=== PATIENT | female | born 1970 | race Caucasian/White ===

== ENCOUNTER 2020-09-13 10:36 | Outpatient (REF) | payer OTHER, SELFPAY ==
[2020-09-13 12:18] LABS: Cholesterol 179 mg/dL; Glucose Fasting 106 mg/dL (60-99); HDL Cholesterol 50 mg/dL; LDL Cholesterol Calculated 108 mg/dl; Triglycerides 109 mg/dL
[2020-09-13 12:27] LABS: Thyroid Stimulating Hormone 1.53 uIU/mL (0.32-4.0); Vitamin D 25-OH Total 25.3 ng/mL (>30)
[2020-09-13 13:13] LABS: HBS Num1 5.33 mIU/mL (0-7.99); ~Hepatitis B Surface Antibody NONREACTIVE (Nonreactive)
[2020-09-13 13:28] LABS: Estimated Average Glucose 128 mg/dL; Hemoglobin A1c % 6.1 %
[2020-09-16 17:57] LABS: TS Negative Control Passed; TS Panel A 0; TS Panel B 0; TS Positive Control Passed; TSpotTB Negative (SeeBelow)
== END 2020-09-13 10:37 | disposition home or self-care (01) ==
LOC: HO.LAB 10:36
PROVIDERS: PCP Family Medicine; Visit Provider Family Medicine
DX: Z00.00 Encounter for general adult medical examination without abnormal findings (principal); R73.9 Hyperglycemia, unspecified
CPT/HCPCS: 36415; 80061; 82306; 82947; 83036; 84443; 86481; 86706

== ENCOUNTER 2020-11-01 11:53 | Outpatient (REF) | payer OTHER, SELFPAY ==
--- NOTE | ~2020-11-01 | XR_ITS ---
EXAMINATION: XR KNEE, LEFT CLINICAL INFORMATION: Pain COMPARISON: None TECHNIQUE: Four views of the left knee. FINDINGS: Bones and soft tissues are normal. No fracture or joint effusion. Alignment is anatomic. Joint spaces are well maintained. No abnormal soft tissue calcification. XR/XR knee LT 4V IMPRESSION: Normal left knee.
== END 2020-11-01 11:54 | disposition home or self-care (01) ==
LOC: HO.XRAY 11:53
PROVIDERS: PCP Family Medicine; Visit Provider Family Medicine
DX: M25.562 Pain in left knee (principal)
CPT/HCPCS: 73564

== ENCOUNTER 2020-12-03 08:43 | Outpatient (REF) | payer OTHER, SELFPAY ==
--- NOTE | ~2020-12-03 | MM_ITS ---
EXAMINATION: MM SCREENING DIGITAL BREAST TOMOSYNTHESIS, BILATERAL CLINICAL INFORMATION: Screening. Asymptomatic. No known family history breast cancer. The lifetime risk of breast cancer based on the Tyrer-Cuzick Model is 12%. COMPARISON: Outside mammography: 09/15/2019, 05/07/2017 ([facility]). TECHNIQUE: Digital breast tomosynthesis is performed in both the craniocaudal and mediolateral oblique views along with computer-aided detection (CAD). Synthesized 2D images are generated from the tomosynthesis. Additional views are provided: Bilateral CC, bilateral MLO. FINDINGS: The breasts are almost entirely fatty (ACR BI-RADS breast composition Category a). Scattered background stromal and fibroglandular densities are stable. There are no significant masses, abnormal calcifications, or other abnormalities. MM/MM tomosynthesis screening BI IMPRESSION: No mammographic evidence of malignancy. ASSESSMENT: BI-RADS 1: Negative RECOMMENDATION: Routine annual mammography screening. This patient's information was entered into a reminder system with a target due date for their next mammogram.
== END 2020-12-03 08:44 | disposition home or self-care (01) ==
LOC: HO.MAMMO 08:43
PROVIDERS: Visit Provider Family Medicine
DX: Z12.31 Encounter for screening mammogram for malignant neoplasm of breast (principal)
CPT/HCPCS: 77063; 77067

== ENCOUNTER 2021-05-18 11:33 | Emergency (ER) | payer OTHER, SELFPAY ==
--- NOTE | ~2021-05-18 | XR_ITS ---
EXAMINATION: XR FOOT, LEFT CLINICAL INFORMATION: Lateral left foot pain. COMPARISON: None TECHNIQUE: AP, lateral, and oblique views of the left foot. FINDINGS: No acute fracture or dislocation. No significant joint space narrowing or marginal osteophytes. No osseous erosion. Plantar and dorsal calcaneal enthesophytes. XR/XR foot LT min 3V IMPRESSION: No fracture or dislocation. Plantar and dorsal calcaneal spurs.
[2021-05-18 13:51] VITALS: BP 191/108; PULSE 84; RESP 18; TEMP 35.2; O2SAT 98; BMI 50.6
--- NOTE | 2021-05-18 14:56 | ED.EXTPRO ---
HPI - Extremity Problem General Chief complaint: Extremity Problem Stated complaint: lt foot pain Time Seen by Provider: 05/18/21 14:56 Source: patient Mode of arrival: ambulatory Limitations: no limitations History of Present Illness HPI Narrative: 2 nights ago she was barefoot in the bathroom and she wiped her foot. But intermittently she has sharp pain to sole of foot. Complaint: extremity pain Onset (ago): day(s) Pain Consistency: intermittent Location: left Radiation: none Review of Systems Neurologic: Denies Sensory deficit (Neuro) [facility] Past Medical History Medical History Morbid obesity SVT (supraventricular tachycardia) Surgical History History of cholecystectomy History of nephrectomy Physical Exam Vital Signs: Vital Signs: Last Vital Signs Temp 95.4 F L 05/18/21 13:51 Pulse 84 05/18/21 13:51 Resp 18 05/18/21 13:51 BP 191/108 H 05/18/21 13:51 Pulse Ox 98 05/18/21 13:51 Body Mass Index 50.6 Const: General: healthy appearing Nutritional Appearance: average body habitus Orientation/consciousness: oriented to person and patient oriented x3 Limitations: no limitations HENMT: Head: Yes normal to inspection Ears: external ears normal General nose exam: Normal external nose present Mouth: Normal oral and palatal mucosa present and oropharynx normal Throat: Yes posterior oropharynx normal Eyes: General: appearance normal, both eyes and all related structures Neck: Other: supple Neck: Yes normal visual inspection Chest: Chest palpation & inspection: normal inspection of the chest Resp: Auscultation: clear to auscultation bilaterally Cardio: Jugular venous distension: no JVD Rate: regular rate Rhythm: regular rhythm Heart sounds: S1 normal heart sound present and S2 normal heart sound present GI: Inspection: Yes normal to inspection Palpation (GI): Soft to palpation, nontender and No hepatosplenomegaly present Auscultation: normal bowel sounds : General: Yes no CVA tenderness Back/Spine/Pelvis: Back: no CVA tenderness Skin: Other: small area lateral aspect of left foot slightly tender to touch, no real erythema, no fluctuance Neuro: General: oriented to person and patient oriented x3 Cranial nerves: Yes CN's II-XII intact bilaterally Motor exam (neuro): 5/5 motor strength present throughout Sensory Exam: No Sensory deficit (Neuro) Extrem: General: Yes normal to inspection Psych: Appearance: grossly normal Course Reevaluation(s) Reevaluation #1: patient with likely retained foreign body of glass to lateral aspect of left foot. Unable to see glass shard either on physical or xray. Patient instructed to do warm soaks Time: 15:05 Discharge Plan Discharge Clinical Impression: Foreign body in foot, left Patient Disposition: Home, Self-Care Instructions: Soft Tissue Foreign Body (ED) Additional Instructions: warm soaks to foot Referrals: Valentino Cordoba MD [Physician] - 1 week
--- NOTE | 2021-05-18 15:33 | PC.NURSE ---
PT SEEN AND EVALUATED BY DR MEYER. PT ALERT AND ORIENTED X 3. SKIN WARM AND DRY. RESP UNLABORED. DENIES N/V. C/O MILD FOOT PAIN. REPORTS FB TO FOOT. PLAN IS FOR DC HOME AFTER MD MILLAN. PT AGREEABLE TO PLAN. STATES NO QUESTIONS.
== END 2021-05-18 15:36 | disposition home or self-care (01) ==
LOC: HO.ED 15:14
PROVIDERS: Emergency Provider Emergency Medicine; PCP Family Medicine
DX: M79.5 Residual foreign body in soft tissue (principal)
CPT/HCPCS: 73630; 99283

== ENCOUNTER 2022-03-02 11:37 | Outpatient (REF) | payer OTHER, SELFPAY ==
--- NOTE | ~2022-03-02 | US_ITS ---
EXAMINATION: US VENOUS ULTRASOUND WITH DOPPLER LOWER EXTREMITY, LEFT CLINICAL INFORMATION: Pain and tenderness left knee COMPARISON: None TECHNIQUE: Ultrasound of the deep veins is performed from the hip to the calf with compression sonography and color and pulse Doppler assessment. Spectral analysis with color-flow imaging is performed. FINDINGS: There is normal venous compression and respiratory variation and augmented flow. The visualized common femoral vein, superficial femoral vein, profunda femoral vein, popliteal vein, and the trifurcation region shows no evidence of deep venous thrombosis. A small left-sided Bonilla's cyst is present measuring 4.2 x 1.1 x 2.2 cm. There is a small joint effusion. If the patient's symptoms persist, followup ultrasound in 5 days 7 days might be of value to exclude proximal propagation from a non-visualized calf vein. US/US venous duplex LE LT IMPRESSION: No DVT demonstrated in the left lower extremity. There is a Bonilla's cyst present as well as a small joint effusion
== END 2022-03-02 11:38 | disposition home or self-care (01) ==
LOC: HO.US 11:37
PROVIDERS: Visit Provider Physician Assistant
DX: M25.562 Pain in left knee (principal)
CPT/HCPCS: 93971

== ENCOUNTER 2022-03-20 08:03 | Outpatient (REF) | payer OTHER, SELFPAY ==
--- NOTE | ~2022-03-20 | XR_ITS ---
EXAMINATION: KNEE X-RAY CLINICAL INFORMATION: Pain COMPARISON: Previous left knee x-ray October 2020 TECHNIQUE: Standing AP view of both knees and lateral and sunrise view of the left knee FINDINGS: Left: Bone alignment is normal. No fracture or dislocation is seen. The joint spaces are normal. There is a small joint effusion. Standing AP view of the right knee is unremarkable. XR/XR knee standing BI IMPRESSION: Small left knee joint effusion.
--- NOTE | ~2022-03-20 | XR_ITS ---
EXAMINATION: KNEE X-RAY CLINICAL INFORMATION: Pain COMPARISON: Previous left knee x-ray October 2020 TECHNIQUE: Standing AP view of both knees and lateral and sunrise view of the left knee FINDINGS: Left: Bone alignment is normal. No fracture or dislocation is seen. The joint spaces are normal. There is a small joint effusion. Standing AP view of the right knee is unremarkable. XR/XR knee LT 2V IMPRESSION: Small left knee joint effusion.
== END 2022-03-20 08:04 | disposition home or self-care (01) ==
LOC: HO.HOSX 08:03
PROVIDERS: Visit Provider Physician Assistant
DX: M17.12 Unilateral primary osteoarthritis, left knee (principal); M25.561 Pain in right knee
CPT/HCPCS: 20610; 73560; 73565; J1040

== ENCOUNTER 2022-03-29 09:18 | Outpatient (REF) | payer OTHER, SELFPAY ==
[2022-03-29 11:22] LABS: Blood Urea Nitrogen 17 mg/dL (9-16); Estimated Glomerular Filt Rate > 60
== END 2022-03-29 09:19 | disposition home or self-care (01) ==
LOC: HO.LAB 09:18
PROVIDERS: PCP Family Medicine; Visit Provider Urology
DX: Z85.528 Personal history of other malignant neoplasm of kidney (principal)
CPT/HCPCS: 36415; 82565; 84520

== ENCOUNTER 2022-06-30 09:00 | Outpatient (RCR) | payer OTHER, SELFPAY ==
[2022-06-23 07:08] VITALS: BP 147/71; PULSE 85; O2SAT 94
--- NOTE | 2022-06-23 09:59 | MHC.PT.EP ---
[facility] [place] [facility] [place] [facility] [place] Office [address] Matt Zamora [address] [phone] F: [phone] F: [phone] F: [phone] F: [phone] Physical Therapy Plan of Care Date of Evaluation: Date of Surgery: Diagnosis: PATELLOFEMORAL ARTHRITIS OF LEFT KNEE Assessment: 52 YO FEMALE REF TO PT FOR LEFT PATELLOFEMORAL ARTHRITIS- SHE ALSO NOTED SHE HAD A SOLORZANO'S CYST WHICH HAS SINCE DRAINED. 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 OBJECTIVE FINDINGS: LIMITED END ROM Lt KNEE, DECR HIP IR , ALTERED GAIT MECH, STRENGTH AND STABILITY DEFICITS IN LUMBOPELVIC/ HIP REGION, MECHANICAL CONCERN OF GENU VALGUS, AND FLUCTUATING PAIN IN LEFT POSTERIOR AND ANTEROINF KNEE WELL RESTRICTED SOFT TISSUE MOB IN LEFT LATERAL RETINACULUM. FUNCTIONALLY, Pt IS LIMITED W SQUATTING, KNEELING, EXERCISING, FITNESS WALKING, AND PROLONGED STANDING. Pt WOULD BENEFIT FROM PT TO ADDRESS THE ABOVE FINDINGS/ PF SYNDROME, DEV A PROGR HEP, EASE SOFT TISSUE IRRIT, AND DEV SELF-SX MGMT TECHN TO ALLOW Pt TO PERF ADLs, EXER, AND WORK DUTIES W/O EXACERB OF SXS. Frequency and Duration: The patient will be seen 2 x WK x 5 WKS Short Term Goals: * DECR Lt KNEE PAIN TO 2-3/10 W REG ADLs *Pt DEMON TERMINAL LEFT KNEE EXTENSION AND IMPROVE FLEXION *WFL FLEXIB W HIP ROTAT AND HS FLEXIB * INITIATE LUMBOPELVIC STAB/ PROX STRENGTHENING Snf Goals: Pt INDEP W HEP PROGRESSION AND SELF-SX MGMT STRATEGIES IN 5 WKS Pt RESUME REG ADLs / FITNESS ACTIVIITIES EVIDENT W IMPROVED LEFI SCORE BY 8-10 POINTS (AT EVAL 16/80 ) IN 5 WKS Pt INCR LE STRENGTH BY 1/2 - 1 GRADE IN 5 WKS *Pt DEMON EFFICIENT GAIT ON LEVEL SURFACES AND STAIRS, WFL FUNCTIONAL SQUAT Treatment Plan: Modalities to reduce pain, spasms and effusion. Manual therapy to restore motion and function. Therapeutic exercise to improve strength and flexibility. Neuromuscular re-education for posture and balance. Therapeutic activities to return to functional activities of daily living. Electronically signed by: Mia Forrest PT Please sign and return to therapist. Thank you for your referral.
== END 2022-07-18 11:31 | disposition home or self-care (01) ==
LOC: HO.PT 09:00
PROVIDERS: PCP Family Medicine; Visit Provider Physician Assistant
DX: M17.12 Unilateral primary osteoarthritis, left knee (principal)
CPT/HCPCS: 97110; 97140; 97162

== ENCOUNTER 2022-07-03 08:05 | Emergency (ER) | payer OTHER, SELFPAY ==
--- NOTE | ~2022-07-03 | US_ITS ---
EXAMINATION: US EXTREMITY NONVASCULAR CLINICAL INFORMATION: Pain along the Achilles tendon. Rule out rupture. COMPARISON: None TECHNIQUE: Limited ultrasound imaging through the Achilles tendon is performed. FINDINGS: The Achilles tenon appears intact with thickness measuring 0.6 cm on the left and 0.5 cm on the right. There is some edema seen superficially to the left Achilles tendon, likely a soft tissue injury. US/US extremity nonvascular cross IMPRESSION: 1. Intact Achilles tendon. 2. There is edema seen superficially to the left Achilles tendon likely soft tissue injury.
[2022-07-03 08:08] VITALS: BP 176/94; PULSE 104; RESP 20; TEMP 37; O2SAT 100; BMI 51.5
--- OUTSIDE RECORDS SUMMARY | 2022-07-03 08:42 | XMS_ITS | Continuity of Care Document ---
:1970 Author Organization [facility] Address [address] [place] [address]- Care Team Providers Name Role Phone Billy DENG, Nena Cho Primary Care Physician [phone] Encounter [facility] Date(s): 10/11/21 - 10/18/21 [facility] [address], [place] [address] [place] Attending Physician: Pernell DENG, Dany Referring Physician: Billy DENG, Nena Cho Allergies, Adverse Reactions, Alerts Substance Reaction Severity Status metoprolol Active Latex Active Fruit Kiwi fruit Active Immunizations Given and Recorded Vaccine Date Status Refusal Reason SARS-CoV-2 (COVID-19) mRNA BNT-162b2 vac 08/30/20 Recorde d SARS-CoV-2 (COVID-19) mRNA BNT-162b2 vac 07/30/20 Recorde d tetanus/diphtheria/pertussis, acel(Tdap) 08/22/19 Given tetanus/diphtheria/pertussis, acel(Tdap) 12/23/08 Recorde d Hepatitis B Vaccine (old term) 10/23/08 Recorded Hepatitis B Vaccine (old term) 09/24/08 Recorded Measles/Mumps/Rubella Virus Vaccine 12/02/90 Recorded Measles/Mumps/Rubella Virus Vaccine 05/01/78 Recorded Medications cyclobenzaprine 10 mg oral tablet 10 mg, By Mouth, Every 8 hours, PRN, Muscle Spasms, # 21 tablet, Refills 0, Tot. Refills 0, Maintenance, Pain , Moderate, 05/11/21 16:05:00 EDT, Route to Pharmacy Electronically, [facility]/pharmacy #[id number], Partial fill upon patient request if the prescriptio... Start Date: 05/11/21 Status: OrderedFlovent HFA 110 mcg/inh inhalation aerosol 2 puffs, Inhalation, 2 times a day, # 36 Unknown, 2 Refills, Maintenance, 01/19/21 12:54:00 EDT, [id number], 157, cm, 01/14/21 16:08:00 EDT, Height Start Date: 01/19/21 Status: Orderednortriptyline 10 mg oral capsule 2, capsule, By Mouth, Daily, # 180 capsule, Refills 1, Route to Pharmacy Electronically, [id number], 157, cm, 05/11/21 15:35:00 EDT, Height Start Date: 09/16/21 Status: OrderedProAir HFA 90 mcg/inh inhalation aerosol with adapter 2, puffs, Inhalation, Every 4 hours, PRN, # 8.5 Gm, Refills 5, Tot. Refills 5, Maintenance, 08/22/2014:20:00 EST, Aerosol, Route to Pharmacy Electronically, [id number], [facility]/pharmacy #[id number], 157, cm, 08/22/19 14:55:00 EST, Height Start Date: 08/22/19 Status: Ordered Problem List Condition Effective Dates Status Health Status Informant Asthma(Confirmed) Active Clear cell renal cell Active carcinoma(Confirmed) Depression(Confirmed) Active Herpes simplex(Confirmed) Active Hx of supraventricular Active tachycardia(Confirmed) Hyperglycemia(Confirmed) Active Migraine(Confirmed) Active Obesity(Confirmed) Active Vitamin D deficiency(Confirmed) Active Vital Signs Most recent to oldest [Reference Range]: 1 Height 157 cm (10/11/21 11:55 AM) Oxygen Saturation [94-100 %] 97 % (10/11/21 11:55 AM) Pulse Rate [55-90 bpm] 86 bpm (10/11/21 11:55 AM) Blood Pressure [90-138/55-84 mm Hg] 151/78 mm Hg *H* (10/11/21 11:55 AM) Respiratory Rate [16-30 br/min] 24 br/min (10/11/21 11:55 AM) Temperature [96.8-100.4 DegF] 98.6 DegF (10/11/21 11:55 AM) Mode of Delivery (Oxygen) Room air (10/11/21 11:55 AM) Blood pressure sites Arm, left (10/11/21 11:55 AM) Temperature Route Temporal (10/11/21 11:55 AM) Social History Social History Type Response Smoking Status Never (less than 100 in life time) entered on: 08/22/19 Sex
--- OUTSIDE RECORDS SUMMARY | 2022-07-03 08:42 | XMS_ITS | Continuity of Care Document ---
:1970 Author Organization [facility] pt Address [address] [place] [address]- Care Team Providers Name Role Phone Not on Staff, PCP Primary Care Physician Unavailable [place] [facility] [place]s): 03/01/22 - 03/31/22 [facility] [address] [place] [address]- Attending Physician: Admtr, Parrish Admitting Physician: Admtr, Ar8 Referring Physician: Admtr, Ar8 Allergies, Adverse Reactions, Alerts Substance Reaction Severity [...] 05/11/21 16:05:00 EDT, Route to Pharmacy Electronically, [facility]/pharmacy #[id number], Partial fill upon patient request if the prescriptio... Start Date: 05/11/21 Status: OrderedFlovent HFA 110 mcg/inh inhalation aerosol 2 puffs, Inhalation, 2 times a day, # 36 Unknown, 2 Refills, Maintenance, 01/19/21 12:54:00 EDT, [id number], 157, cm, 01/14/21 16:08:00 EDT, Height Start Date: 01/19/21 Status: Orderednortriptyline 10 mg oral capsule 2, capsule, By Mouth, Daily, # 180 capsule, Refills 1, Route to Pharmacy Electronically, [facility], 157, cm, 05/11/21 15:35:00 EDT, Height Start Date: 09/16/21 Status: OrderedProAir HFA 90 mcg/inh inhalation aerosol with adapter 2, puffs, Inhalation, Every 4 hours, PRN, # 8.5 Gm, Refills 5, Tot. Refills 5, Maintenance, 08/22/2014:20:00 EST, Aerosol, Route to Pharmacy Electronically, [id number], [facility]/pharmacy #[id number], 157, cm, 08/22/19 14:55:00 EST, Height Start Date: 08/22/19 Status: Ordered Problem List Condition Effective Dates Status Health Status Informant Asthma(Confirmed) Active Clear cell renal cell Active carcinoma(Confirmed) Depression(Confirmed) Active Herpes simplex(Confirmed) Active Hx of supraventricular Active tachycardia(Confirmed) Hyperglycemia(Confirmed) Active Migraine(Confirmed) Active Obesity(Confirmed) Active Vitamin D deficiency(Confirmed) Active Social History Social History Type Response Smoking Status Never (less than 100 in life time) entered on: 08/22/19 Sex
--- OUTSIDE RECORDS SUMMARY | 2022-07-03 08:42 | XMS_ITS | Continuity of Care Document ---
:1970 Author Organization [facility] Address [address] [place] [address]- Care Team Providers Name Role Phone Billy DENG, Nena Cho Primary Care Physician Encounter [facility] Date(s): 05/12/21 - 06/11/21 [facility] [address] [place] [address]- Allergies, Adverse Reactions, Alerts Substance Reaction Severity [...] 05/11/21 16:05:00 EDT, Route to Pharmacy Electronically, [facility]/pharmacy #[id number], Partial fill upon patient request if the prescriptio... Start Date: 05/11/21 Status: OrderedFlovent HFA 110 mcg/inh inhalation aerosol 2 puffs, Inhalation, 2 times a day, # 36 Unknown, 2 Refills, Maintenance, 01/19/21 12:54:00 EDT, [id number], [facility], cm, 01/14/21 16:08:00 EDT, Height Start Date: 01/19/21 Status: Orderednortriptyline 10 mg oral capsule 2, capsule, By Mouth, Daily, # 180 capsule, Refills 3, Tot. Refills 3, Maintenance, 09/03/20 13:27:00 EST, Route to Pharmacy Electronically, [facility]/pharmacy #[id number], 157, cm, 08/22/19 14:55:00 EST, Height Start Date: 09/03/20 Status: OrderedProAir HFA 90 mcg/inh inhalation aerosol with adapter 2, puffs, Inhalation, Every 4 hours, PRN, # 8.5 Gm, Refills 5, Tot. Refills 5, Maintenance, 08/22/2014:20:00 EST, Aerosol, Route to Pharmacy Electronically, [id number], [facility]/pharmacy #[id number], 157, cm, 08/22/19 14:55:00 EST, Height [...]
--- OUTSIDE RECORDS SUMMARY | 2022-07-03 08:43 | XMS_ITS | Continuity of Care Document ---
:1970 Author Organization [facility] Address [address] [place] [address]- Care Team Providers Name Role Phone Billy DENG, Nena Cho Primary Care Physician [phone] Encounter [facility] Date(s): 05/11/21 - 06/10/21 [facility] [address] [place] [address]- Attending Physician: Parrish Buckley Admitting Physician: AdmtrParrish Referring Physician: Admtr, Ar8 Allergies, Adverse Reactions, [...] 05/11/21 16:05:00 EDT, Route to Pharmacy Electronically, [facility]/pharmacy #[id number], Partial fill upon patient request if the prescriptio... Start Date: 05/11/21 Status: OrderedFlovent HFA 110 mcg/inh inhalation aerosol 2 puffs, Inhalation, 2 times a day, # 36 Unknown, 2 Refills, Maintenance, 01/19/21 12:54:00 EDT[facility], cm, 01/14/21 16:08:00 EDT, Height Start Date: 01/19/21 Status: Orderednortriptyline 10 mg oral capsule 2, capsule, By Mouth, Daily, # 180 capsule, Refills 3, Tot. Refills 3, Maintenance, 09/03/20 13:27:00 EST, Route to Pharmacy Electronically, [facility]/pharmacy #[id number], 157, cm, 08/22/19 14:55:00 EST, Height Start Date: 09/03/20 Status: OrderedProAir HFA 90 mcg/inh inhalation aerosol with adapter 2, puffs, Inhalation, Every 4 hours, PRN, # 8.5 Gm, Refills 5, Tot. Refills 5, Maintenance, 08/22/2014:20:00 EST, Aerosol, Route to Pharmacy Electronically, [id number], [facility]/pharmacy #[id number], 157, cm, 08/22/19 14:55:00 EST, [...]
--- OUTSIDE RECORDS SUMMARY | 2022-07-03 08:43 | XMS_ITS | Continuity of Care Document ---
:1970 Author Organization [facility] Address [address] [place] [address]- Care Team Providers Name Role Phone Billy DENG, Nena Cho Primary Care Physician Encounter [facility] Date(s): 10/11/21 - 11/10/21 [facility] [address], [place] [address] Attending Physician: AdmtrParrish Admitting Physician: Admtr, Ar8 Referring Physician: Admtr, [...] 05/11/21 16:05:00 EDT, Route to Pharmacy Electronically, [facility]/pharmacy #[id number], Partial fill upon patient request if the prescriptio... Start Date: 05/11/21 Status: OrderedFlovent HFA 110 mcg/inh inhalation aerosol 2 puffs, Inhalation, 2 times a day, # 36 Unknown, 2 Refills, Maintenance, 01/19/21 12:54:00 EDT, [facility], [facility], cm, 01/14/21 16:08:00 EDT, Height Start Date: 01/19/21 Status: Orderednortriptyline 10 mg oral capsule 2, capsule, By Mouth, Daily, # 180 capsule, Refills 1, Route to Pharmacy Electronically, [facility], 157, cm, 05/11/21 15:35:00 EDT, Height Start Date: 09/16/21 Status: OrderedProAir HFA 90 mcg/inh inhalation aerosol with adapter 2, puffs, Inhalation, Every 4 hours, PRN, # 8.5 Gm, Refills 5, Tot. Refills 5, Maintenance, 08/22/2014:20:00 EST, Aerosol, Route to Pharmacy Electronically, [id number], [facility]/pharmacy #[id number], 157, cm, 08/22/19 14:55:00 EST, [...]
--- OUTSIDE RECORDS SUMMARY | 2022-07-03 08:43 | XMS_ITS | Continuity of Care Document ---
:1970 Author Organization [facility] Address [address] [place] [address]- Care Team Providers Name Role Phone Billy DENG, Nena Cho Primary Care Physician Encounter [facility] Date(s): 05/11/21 - 05/18/21 [facility] [address] [place] [address]- Encounter Diagnosis Lower back pain (Discharge Diagnosis) - 05/11/21 Attending Physician: eDepa Cervantes NP Referring Physician: Billy DENG, Nena Cho Allergies, [...] 05/11/21 16:05:00 EDT, Route to Pharmacy Electronically, [facility]/pharmacy #[id number], Partial fill upon patient request if the prescriptio... Start Date: 05/11/21 Status: OrderedFlovent HFA 110 mcg/inh inhalation aerosol 2 puffs, Inhalation, 2 times a day, # 36 Unknown, 2 Refills, Maintenance, 01/19/21 12:54:00 EDT, [facility], 157, cm, 01/14/21 16:08:00 EDT, Height Start Date: 01/19/21 Status: Orderednortriptyline 10 mg oral capsule 2, capsule, By Mouth, Daily, # 180 capsule, Refills 3, Tot. Refills 3, Maintenance, 09/03/20 13:27:00 EST, [facility], [id number], 157, cm, 08/22/19 14:55:00 EST, Height Start Date: 09/03/20 Status: OrderedProAir HFA 90 mcg/inh inhalation aerosol with adapter 2, puffs, Inhalation, Every 4 hours, PRN, # 8.5 Gm, Refills 5, Tot. Refills 5, Maintenance, 08/22/2014:20:00 EST, Aerosol, Route to Pharmacy Electronically, [id number], [id number], 157, cm, 08/22/19 14:55:00 EST, Height Start Date: 08/22/19 Status: Ordered Problem List Condition Effective Dates Status Health Status Informant Asthma(Confirmed) Active Clear cell renal cell Active carcinoma(Confirmed) Depression(Confirmed) Active Herpes simplex(Confirmed) Active Hx of supraventricular Active tachycardia(Confirmed) Hyperglycemia(Confirmed) Active Migraine(Confirmed) Active Obesity(Confirmed) Active Vitamin D deficiency(Confirmed) Active Diagnosis Diagnosis Type Effective Dates Health Status Clinical In formant Service Lower back pain Discharge 05/11/21 Diagnosis Vital Signs Most recent to oldest [Reference Range]: 1 Height 157 cm (05/11/21 3:35 PM) Weight 136.3 kg (05/11/21 3:35 PM) Body Mass Index [18.5-24.99] 55.3 *>HHI* (05/11/21 3:35 PM) Weight Obtained Via Patient/family stated (05/11/21 3:35 PM) Social History Social History Type Response Smoking Status Never (less than 100 in life time) entered on: 08/22/19 Sex
--- OUTSIDE RECORDS SUMMARY | 2022-07-03 08:43 | XMS_ITS | Continuity of Care Document ---
:1970 Author Organization [facility] Address [address] [place] [address]- Care Team Providers Name Role Phone Billy DENG, Nena Cho Primary Care Physician [phone] Encounter [facility] Date(s): 05/18/21 - 06/17/21 [facility] [address] [place] [address]- Allergies, Adverse Reactions, Alerts Substance Reaction Severity [...] 05/11/21 16:05:00 EDT, Route to Pharmacy Electronically, [facility]/pharmacy #[id number], Partial fill upon patient request if the prescriptio... Start Date: 05/11/21 Status: OrderedFlovent HFA 110 mcg/inh inhalation aerosol 2 puffs, Inhalation, 2 times a day, # 36 Unknown, 2 Refills, Maintenance, 01/19/21 12:54:00 EDT[facility], cm, 01/14/21 16:08:00 EDT, Height Start Date: 01/19/21 Status: Orderednortriptyline 10 mg oral capsule 2, capsule, By Mouth, Daily, # 180 capsule, Refills 3, Tot. Refills 3, Maintenance, 09/03/20 13:27:00 EST, Route to Pharmacy Electronically, [facility]/pharmacy #[id number], 157, cm, 08/22/19 14:55:00 EST, Height Start Date: 09/03/20 Status: OrderedProAir HFA 90 mcg/inh inhalation aerosol with adapter 2, puffs, Inhalation, Every 4 hours, PRN, # 8.5 Gm, Refills 5, Tot. Refills 5, Maintenance, 08/22/2014:20:00 EST, Aerosol, Route to Pharmacy Electronically, [id number], [facility]/pharmacy #[id number], 157, cm, 08/22/19 14:55:00 EST, [...]
--- OUTSIDE RECORDS SUMMARY | 2022-07-03 08:43 | XMS_ITS | Continuity of Care Document ---
:1970 Author Organization [facility] Address [address] [place] [address]- Care Team Providers Name Role Phone Billy DENG, Nena Cho Primary Care Physician Encounter [facility] R [id number] Date(s): 03/01/22 - 03/08/22 [facility] [address] [place] [address]- Attending Physician: Renny Tovar DO Referring Physician: Nena Cervantes MD Allergies, Adverse Reactions, Alerts Substance Reaction Severity [...] 05/11/21 16:05:00 EDT, Route to Pharmacy Electronically, [facility]/pharmacy #[id number], Partial fill upon patient request if the prescriptio... Start Date: 05/11/21 Status: OrderedFlovent HFA 110 mcg/inh inhalation aerosol 2 puffs, Inhalation, 2 times a day, # 36 Unknown, 2 Refills, Maintenance, 01/19/21 12:54:00 EDT, [id number], 157, cm, 01/14/21 16:08:00 EDT, Height Start Date: 01/19/21 Status: Orderednortriptyline 10 mg oral capsule 2, capsule, By Mouth, Daily, # 180 capsule, Refills 1, Route to Pharmacy Electronically, [id number], 157, cm, 05/11/21 15:35:00 EDT, Height Start Date: 09/16/21 Status: OrderedProAir HFA 90 mcg/inh inhalation aerosol with adapter 2, puffs, Inhalation, Every 4 hours, PRN, # 8.5 Gm, Refills 5, Tot. Refills 5, Maintenance, 08/22/2014:20:00 EST, Aerosol, Route to Pharmacy Electronically, [id number], [facility]/pharmacy #[id number], 157, cm, 08/22/19 14:55:00 EST, Height Start Date: 08/22/19 Status: Ordered Problem List Condition Effective Dates Status Health Status Informant Asthma(Confirmed) Active Clear cell renal cell Active carcinoma(Confirmed) Depression(Confirmed) Active Herpes simplex(Confirmed) Active Hx of supraventricular Active tachycardia(Confirmed) Hyperglycemia(Confirmed) Active Migraine(Confirmed) Active Obesity(Confirmed) Active Vitamin D deficiency(Confirmed) Active Vital Signs Most recent to oldest [Reference Range]: 1 Height 157 cm (03/01/22 4:27 PM) Oxygen Saturation [94-100 %] 97 % (03/01/22 4:27 PM) Pulse Rate [55-90 bpm] 92 bpm *H* (03/01/22 4:27 PM) Blood Pressure [90-138/55-84 mm Hg] 158/86 mm Hg *H* (03/01/22 4:27 PM) Respiratory Rate [16-30 br/min] 18 br/min (03/01/22 4:27 PM) Temperature [96.8-100.4 DegF] 96.8 DegF (03/01/22 4:27 PM) Mode of Delivery (Oxygen) Room air (03/01/22 4:27 PM) Blood pressure sites Arm, left (03/01/22 4:27 PM) Social History Social History Type Response Smoking Status Never (less than 100 in life time) entered on: 08/22/19 Sex
--- OUTSIDE RECORDS SUMMARY | 2022-07-03 08:43 | XMS_ITS | Continuity of Care Document ---
:1970 Author Organization [facility] Address [address] [place] [id number]- Care Team Providers Name Role Phone Not on Staff, PCP Primary Care Physician Unavailable Encounter [facility] Date(s): 03/02/22 - 04/01/[address] [address] Attending Physician: Billy JENKINS, Barbara Leger Admitting Physician: Billy JENKINS, Barbara Leger Referring Physician: Billy JENKINS, Barbara Leger Allergies, Adverse Reactions, Alerts Substance Reaction Severity [...] 05/11/21 16:05:00 EDT, Route to Pharmacy Electronically, [facility]/pharmacy #[id number], Partial fill upon patient request if the prescriptio... Start Date: 05/11/21 Status: OrderedFlovent HFA 110 mcg/inh inhalation aerosol 2 puffs, Inhalation, 2 times a day, # 36 Unknown, 2 Refills, Maintenance, 01/19/21 12:54:00 EDT, [id number], 157, cm, 01/14/21 16:08:00 EDT, Height Start Date: 01/19/21 Status: Orderednortriptyline 10 mg oral capsule 2, capsule, By Mouth, Daily, # 180 capsule, Refills 1, Route to Pharmacy Electronically, [id number], 157, cm, 05/11/21 15:35:00 EDT, Height Start Date: 09/16/21 Status: OrderedProAir HFA 90 mcg/inh inhalation aerosol with adapter 2, puffs, Inhalation, Every 4 hours, PRN, # 8.5 Gm, Refills 5, Tot. Refills 5, Maintenance, 08/22/2014:20:00 EST, Aerosol, Route to Pharmacy Electronically, [id number], [id number], 157, cm, 08/22/19 14:55:00 EST, [...]
[2022-07-03] MEDS: Ketorolac Tromethamine 60 MG/2 ML VIAL IM (09:04)
--- NOTE | 2022-07-03 09:09 | ED.EXTPRO ---
HPI - Extremity Problem General Chief complaint: Extremity Problem Stated complaint: leg pain Time Seen by Provider: 07/03/22 08:34 Source: patient Mode of arrival: ambulatory Limitations: no limitations History of Present Illness HPI Narrative: 52 yo female here with left calf pain. Patient reports that she has been struggling with left knee pain for several months but over the last 1 week she has had pain in her left posterior ankle which is worsened with walking. Today when walking she felt immediate tearing sensation in her left calf with sudden pain. No weakness, numbness, tingling Related Data Home Medications Medication Instructions Recorded Confirmed nortriptyline 10 mg capsule 20 mg PO DAILY 03/20/22 Previous Rx's Medication Instructions Recorded oxycodone 5 mg tablet 5 mg PO Q8H PRN pain #10 tabs 07/03/22 Allergies Allergy/AdvReac Type Severity Reaction Status Date / Time No Known Allergies Allergy Verified 03/20/22 15:45 Review of Systems Review of Systems: Yes all other systems are reviewed and are negative Constitutional: Constitutional: Reports no additional constitutional complaints, Denies body ache(s), Denies chills, Denies fever(s), Denies headache(s) and Denies weakness Eyes: Eyes: Reports no additional eye complaints and Denies change in vision ENT: Reports system reviewed and no additional complaints, except as documented, Denies dizziness, Denies headache(s), Denies nasal congestion, Denies nasal discharge and Denies neck pain Cardiovascular: Cardiovascular: Reports no additional cardiovascular complaints, Denies chest pain, Reports leg edema and Denies dyspnea Respiratory: Respiratory: Reports no additional respiratory complaints, Denies cough and Denies dyspnea Gastrointestinal: Gastrointestinal: Reports no additional gastrointestinal complaints, Denies abdominal pain, Denies diarrhea, Denies nausea and Denies vomiting Genitourinary: Genitourinary: Reports no additional female genitourinary complaints and Denies urinary incontinence Musculoskeletal: Musculoskeletal: Reports no additional musculoskeletal complaints, Denies back pain, Denies arthralgias, Denies joint swelling, Denies neck pain, Denies numbness, Reports radiating pain into limb and Denies tingling Integumentary/Breasts: Skin/Breast: Reports system reviewed and no additional complaints, except as docu and Denies rash Neurologic: Reports system reviewed and no additional complaints, except as documented, Denies Abnormal speech present, Denies dizziness, Denies headache(s), Denies numbness, Denies tingling and Denies weakness [facility] Past Medical History Attestation statement: The following information was validated with the patient. Source: old records reviewed and nursing notes reviewed Medical History Morbid obesity SVT (supraventricular tachycardia) Surgical History History of cholecystectomy History of nephrectomy Social History Social History Smoked in Last 30 Days: No Advance Directives: No Advance Directives Information Provided: No Patient : No Physical Exam Vital Signs: Vital Signs: Last Vital Signs Temp 98.6 F 07/03/22 08:08 Pulse 104 H 07/03/22 08:08 Resp 20 07/03/22 08:08 BP 176/94 H 07/03/22 08:08 Pulse Ox 100 07/03/22 08:08 O2 Del Method 07/03/22 08:08 BMI result Body Mass Index 51.5 Const: General: cooperative, healthy appearing, comfortable and no acute distress Orientation/consciousness: patient oriented x3 Limitations: no limitations HEENT: Head: Yes normal to inspection Ears: hearing grossly normal bilaterally General nose exam: Normal external nose present Face and sinus: Yes normal facial exam Mouth: Normal oral and palatal mucosa present Throat: Yes posterior oropharynx normal Eyes: General: appearance normal, both eyes and all related structures Pupils: Equal, round and reactive pupils present Neck: Neck: Yes normal visual inspection Chest: Chest palpation & inspection: normal inspection of the chest Resp: Effort & Inspection: normal respiratory effort Auscultation: clear to auscultation bilaterally Cardio: Rate: regular rate Rhythm: regular rhythm Peripheral pulses: Peripheral pulses 2+ throughout GI: Inspection: Yes normal to inspection Palpation (GI): Soft to palpation and nontender Auscultation: normal bowel sounds Back/Spine/Pelvis: Thoracic/Lumbar Spine: thoracic and lumbar spine normal to inspection Skin: General skin exam: no rashes or lesions noted Neuro: General: patient oriented x3, no focal motor deficits and normal sensation to monofilament Cranial nerves: Yes Equal, round and reactive pupils present Cognition (Neuro): normal cognition Speech: No Abnormal speech present Gait exam (Neuro): Normal gait present Motor exam (neuro): 5/5 motor strength present throughout Extrem: Other: There is tenderness of the left posterior Achilles and over the left posterior calf with slight swelling. No warmth or redness. +young test but alot of pain with squeeze General: Yes normal to inspection Course Course Course Narrative: Ultrasound shows no evidence of Achilles tendon rupture. There is some soft tissue swelling noted at the area of the tendon. Likely strain or inflammation. Patient placed in a walking boot given crutches for home. Recommend follow-up with orthopedics for any persistent symptoms. Reviewed rice. Reviewed worrisome signs and symptoms of when to return to the emergency room. Comfortable plan for discharge home. Medications Administered Discontinued Medications Generic Name Dose Route Start Last Admin Trade Name Freq PRN Reason Stop Dose Admin Ketorolac Tromethamine 60 mg 07/03/22 09:00 07/03/22 09:04 Ketorolac Tromethamine 60 Mg/2 Ml Vial IM 07/03/22 09:01 60 mg ONCE ONE Administration Ondansetron HCl 4 mg 07/03/22 09:07 07/03/22 09:10 Ondansetron Odt 4 Mg Tab.Rapdis TRANSLINGU 07/03/22 09:08 4 mg ONCE ONE Administration MDM - Extremity (Nontraumatic) MDM Narrative Medical decision making narrative: 52-year-old female here with posterior left ankle and calf pain after hearing a ripping sensation today while walking. Will check ultrasound. Provide analgesia. Consider gastro tear, achilles tendon rupture or tear Medical Records Attestation: I reviewed the patient's medical records. Lab Data Attestation: I reviewed the patient's lab results. Imaging Data soft tisee US: Attestation: I personally reviewed and interpreted this imaging study as follows: Radiologist's impression: Launch?Image [address] [address] Ultrasound Report Signed Patient: Leila Lundberg MR#: [id number] : 1970 Acct:[id number] Age/Sex: 52 / F ADM Date: 07/03/22 Loc: HO.ED Attending Dr: Ordering Physician: Vibha Wilson NP Date of Service: 07/03/22 Procedure(s): US extremity nonvascular cross Accession Number(s): [id number] cc: Vibha Wilson DRIER TENDER~ EXAMINATION: US EXTREMITY NONVASCULAR CLINICAL INFORMATION: Pain along the Achilles tendon. Rule out rupture.? COMPARISON: None? TECHNIQUE: Limited ultrasound imaging through the Achilles tendon is performed.? FINDINGS: The Achilles tenon appears intact with thickness measuring 0.6 cm on the left and 0.5 cm on the right. There is some edema seen superficially to the left Achilles tendon, likely a soft tissue injury. ? US/US extremity nonvascular cross IMPRESSION: 1.? Intact Achilles tendon. 2.? There is edema seen superficially to the left Achilles tendon likely soft tissue injury. ? Procedures Procedure Narrative Procedure Narrative: Crutches, walking boot Discharge Plan Discharge Clinical Impression: Strain of Achilles tendon Patient Disposition: Home, Self-Care Instructions: Muscle Strain (ED), Achilles Tendinitis (ED) Additional Instructions: Ice to the area, use the boot for walking, elevation Continue ibuprofen for pain Add oxycodone as needed Prescriptions: New oxycodone 5 mg tablet 5 mg PO Q8H PRN (Reason: pain) Qty: 10 0RF Rx Instructions: Partial Fill upon patient request. No Action nortriptyline 10 mg capsule 20 mg PO DAILY Referrals: [facility] [Provider Group] - 1 week (For persistent symptoms) Stand Alone Forms: Work/School Release Interventions: ED Discharge Assessment Last Done: 07/03/22 14:46 Discharge Date/Time: 07/03/22 14:46
[2022-07-03] MEDS: Ondansetron ODT 4 MG TAB.RAPDIS TRANSLINGU (09:10)
--- NOTE | 2022-07-03 10:13 | PC.NURSE ---
Ultrasound at bedside . patient aware of plan care .
--- NOTE | 2022-07-03 14:42 | PC.NURSE ---
patient a/ox4 . crutch education given and walking boot applied to left foot , patient tolerated well . went over discharge instructions as ordered by provider . contact information given for follow up with orthopedics . patient to return if symptoms worsen . no questions at this time .
== END 2022-07-03 14:46 | disposition home or self-care (01) ==
PROVIDERS: Emergency Provider Emergency Medicine; PCP Family Medicine
DX: S86.012A Strain of left Achilles tendon, initial encounter (principal); X58.XXXA Exposure to other specified factors, initial encounter; Y93.01 Activity, walking, marching and hiking; Y92.9 Unspecified place or not applicable; Y99.9 Unspecified external cause status
CPT/HCPCS: 76882; 96372; 99284; J1885

== ENCOUNTER → 2022-07-05 10:18 | Outpatient (BNVA) | payer OTHER, SELFPAY | PROVIDERS: PCP Family Medicine; Visit Provider Physician Assistant Medical | DX: Z13.89 Encounter for screening for other disorder (principal) | CPT/HCPCS: 99203 ==

== ENCOUNTER 2022-09-19 14:00 | Outpatient (REF) | payer OTHER, SELFPAY ==
--- NOTE | ~2022-09-19 | US_ITS ---
EXAMINATION: US PELVIS CLINICAL INFORMATION: Postmenopausal bleeding. COMPARISON: None TECHNIQUE: Ultrasound of the pelvis is performed using both transabdominal and transvaginal transducers along with Doppler. Transvaginal imaging is performed due to inadequate visualization transabdominally. FINDINGS: Uterus: The uterus is anteverted and measures 9.2 x 3.2 x 5.1 cm. Do cysts are seen within the cervix. The double wall endometrial thickness is 0.9 mm, which is increased for a postmenopausal patient. The uterus is smooth in contour and has normal myometrial echogenicity. No visible fibroid. Adnexa: Both ovaries are visualized. There is normal color flow to the adnexa. There is no ovarian torsion. There is no pelvic ascites or fluid collection. Right ovary measures 2.4 x 1.7 x 2.4 cm, volume 5.1 mL. Left ovary measures 3.9 x 3.6 x 4.1 cm, volume 30.1 mL. Imaging of the left ovary is limited due to body habitus. US/US pelvic and transvaginal IMPRESSION: 1. There is postmenopausal thickening of the endometrial stripe to 9 mm. Gynecology evaluation an management is recommended, with consideration for tissue sampling. 2. Nabothian cysts are seen within the cervix. 3. There is abnormal enlargement of the presumed left ovary. This shows Doppler flow, and no obvious torsion is seen, with the provision that ovarian torsion may be intermittent. The further possibility of a pedunculated fibroid is raised, given limited visualization secondary to body habitus. Gynecology evaluation and management is recommended. This finding could be further evaluated with pelvic MRI, if clinically indicated.
== END 2022-09-19 14:01 | disposition home or self-care (01) ==
LOC: HO.US 14:00
PROVIDERS: PCP Family Medicine; Visit Provider Family Medicine
DX: N95.0 Postmenopausal bleeding (principal)
CPT/HCPCS: 76830; 76856

== ENCOUNTER 2022-10-03 13:24 | Outpatient (REF) | payer OTHER, SELFPAY | END 2022-10-03 13:25 | disposition home or self-care (01) | LOC: HO.LNP 13:24 | PROVIDERS: PCP Family Medicine; Visit Provider Obstetrics & Gynecology | DX: N95.0 Postmenopausal bleeding (principal) | CPT/HCPCS: 58100; 88305 ==

== ENCOUNTER → 2022-10-26 11:39 | Outpatient (BNVA) | payer OTHER, SELFPAY | PROVIDERS: PCP Family Medicine; Visit Provider Obstetrics & Gynecology | DX: Z13.89 Encounter for screening for other disorder (principal) ==

== ENCOUNTER 2023-03-15 08:12 | Emergency (ER) | payer OTHER, SELFPAY ==
--- NOTE | ~2023-03-15 | XR_ITS ---
EXAMINATION: XR CHEST AP portable, 9:05 AM CLINICAL INFORMATION: Upper respiratory symptoms COMPARISON: None available. TECHNIQUE: Frontal view of the chest was obtained. FINDINGS: No significant abnormality is noted involving the heart, lungs, mediastinum, bony thorax or soft tissues. XR/XR chest 1V IMPRESSION: No acute cardiopulmonary disease on this AP portable chest x-ray.
[2023-03-15 08:28] VITALS: BP 156/96; PULSE 109; RESP 16; TEMP 36.7; O2SAT 96; BMI 53.1
--- NOTE | 2023-03-15 08:29 | ED.GENADULT ---
HPI - General Adult General Chief complaint: Dyspnea Stated complaint: Asthma? Time Seen by Provider: 03/15/23 08:28 Source: patient Mode of arrival: ambulatory Limitations: no limitations History of Present Illness HPI narrative: Patient is a 53 year old assigned female at with a history of asthma presenting to the emergency department today with wheezing and a cough. Patient states that over the last 4 days she has had a cough and increased wheezing. Patient denies any dizziness, lightheadedness, abdominal pain, nausea, vomiting, fever, chills, blurry vision, double vision, loss of vision, chest pain, difficulty breathing, shortness of breath, back pain, night sweats, pain with urination, increased urinary frequency, increased urinary urgency, blood in her urine or stool, syncope or a near syncopal episode, recent trauma or falls, bowel incontinence, bladder incontinence, bowel retention, bladder retention, or any other complaints at this time. Onset (ago): day(s) (4) Severity: mild Severity scale (1-10): 3 Relieving factors: none Exacerbating factors: none Associated symptoms: cough Treatments prior to arrival: none Related Data Home Medications Medication Instructions Recorded Confirmed ibuprofen 800 mg tablet 800 mg PO Q8H 10/03/22 Previous Rx's Medication Instructions Recorded albuterol sulfate 90 mcg/actuation 1 inh inhalation QID PRN shortness 03/15/23 aerosol inhaler of breath or wheezing #8.5 grams doxycycline hyclate 100 mg tablet 100 mg PO BID 7 days #14 tabs 03/15/23 prednisone 20 mg tablet 20 mg PO DAILY 7 days #7 tabs 03/15/23 Allergies Allergy/AdvReac Type Severity Reaction Status Date / Time amlodipine [From [facility]] Allergy Intermediate Swelling Verified 10/26/22 11:43 Latex, Natural Rubber Allergy Intermediate Difficulty Verified 10/26/22 11:43 Breathing,itching metoprolol AdvReac Unknown Verified 03/15/23 08:28 Review of Systems Constitutional: Constitutional: Reports no additional constitutional complaints, Denies chills, Denies fever(s) and Denies night sweats Eyes: Eyes: Reports no additional eye complaints, Denies blurry vision, Denies change in vision, Denies diplopia, Denies eye discharge, Denies loss of vision and Denies eye pain ENT: Denies dizziness Cardiovascular: Cardiovascular: Reports no additional cardiovascular complaints, Denies chest pain, Denies lightheadedness, Denies Loss of Consciousness and Denies dyspnea Respiratory: Respiratory: Reports no additional respiratory complaints, Reports cough, Denies dyspnea and Reports wheezing Gastrointestinal: Gastrointestinal: Reports no additional gastrointestinal complaints, Denies abdominal pain, Denies melena, Denies hematochezia, Denies change in bowel habits and Denies change in stool character Genitourinary: Genitourinary: Denies hematuria, Denies urinary frequency, Denies dysuria, Denies urinary incontinence, Denies urinary hesitancy and Denies urinary urgency Musculoskeletal: Musculoskeletal: Reports no additional musculoskeletal complaints, Denies numbness and Denies tingling Neurologic: Denies dizziness, Denies loss of vision, Denies numbness and Denies tingling Psychiatric: Psychiatric: Reports no additional psychiatric complaints Endocrine: Endocrine: Reports no additional endocrine complaints Hematologic/Lymphatic: Hematologic/Lymphatic: Reports no additional hematologic/lymphatic complaints Allergic/Immunologic: Allergic/Immunologic: Reports no additional allergic/immunologic complaints and Reports wheezing PMFSH Past Medical History Attestation statement: The following information was validated with the patient. Source: old records reviewed and nursing notes reviewed Medical History Asthma Cancer of kidney Migraines Morbid obesity SVT (supraventricular tachycardia) Surgical History History of cholecystectomy History of nephrectomy Family History Family History Mother DVT (deep vein thrombosis) in Social History Social History Household Members: None Housing: Apartment Alcohol intake: current Alcohol intake frequency: holidays/special occasions only Alcohol type: wine and hard liquor Patient Tobacco Use Status: Former Tobacco user Smoked in Last 30 Days: No Use of substances other than those prescribed or required for medical reasons: No Advance Directives: No Advance Directives Information Provided: No Patient : No Current occupational status: employed 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 /[employer] Sexual orientation: Straight/Heterosexual Gender identity: Female Physical Exam ED Vital Signs: Vital Signs - 24 hr 03/15/23 08:28 03/15/23 08:36 03/15/23 08:52 Temperature 98.1 F Pulse Rate 109 H 94 Respiratory Rate 16 18 20 Blood Pressure 156/96 H Pulse Oximetry 96 Oxygen Delivery Method Room Air 03/15/23 09:04 03/15/23 09:47 Temperature 98.4 F 98.0 F Pulse Rate 99 95 Respiratory Rate 20 18 Blood Pressure 139/74 138/78 Pulse Oximetry 93 92 Oxygen Delivery Method Room Air Room Air BMI result Body Mass Index 53.1 Const General: cooperative, no acute distress, alert and awake Nutritional Appearance: well nourished Orientation/consciousness: patient oriented x3 Limitations: no limitations HENMT Head: Yes normal to inspection and Yes atraumatic Ears: hearing grossly normal bilaterally and external ears normal General nose exam: Normal external nose present, no nasal discharge noted and no epistaxis Face and sinus: Yes normal facial exam, No abrasion and No laceration Mouth: Normal oral and palatal mucosa present, no drooling and no muffled voice Eyes General: appearance normal, both eyes and all related structures Periorbital: periorbital findings normal Eyelids: Yes eyelids normal Conjunctivae: conjunctivae normal Pupils: Equal, round and reactive pupils present EOM: EOMs intact bilaterally Neck Neck: Yes normal visual inspection, Yes full ROM and Yes no lymphadenopathy Chest Chest palpation & inspection: normal inspection of the chest Resp Effort & Inspection: normal respiratory effort and able to speak in complete sentences Auscultation: wheezes scattered wheezes and throughout Cardio Rate: regular rate Rhythm: regular rhythm GI Inspection: Yes normal to inspection Neuro General: patient oriented x3 and moves all extremities Cranial nerves: Yes Equal, round and reactive pupils present Cognition (Neuro): normal cognition Motor exam (neuro): 5/5 motor strength present throughout Sensory Exam: Normal double simultaneous stimulation for sensation Coordination: [id number] test normal Extrem General: Yes normal to inspection, Yes full ROM and Yes capillary refill normal Psych Appearance: grossly normal Mental Status: mental status grossly normal Affect: normal affect Attitude: cooperative Thought process: Normal thought process present Thought content: Normal thought content present Insight: Good insight present (Psych) Medications Administered Discontinued Medications Generic Name Dose Route Start Last Admin Trade Name Freq PRN Reason Stop Dose Admin Albuterol Sulfate 7.5 mg/ 10 mg 03/15/23 08:29 03/15/23 08:51 Albuterol Sulfate 2.5 mg INHALE 03/15/23 08:30 10 mg ONCE ONE Administration Methylprednisolone Sodium Succinate 60 mg 03/15/23 08:29 03/15/23 08:41 Methylprednisolone Sod Succ 125 Mg/2 Ml Vial IM 03/15/23 08:30 60 mg ONCE ONE Administration Medical Decision Making Medical Decision Making [facility] Narrative: Patient is a 53 year old assigned female at with a history of asthma and migraines presenting to the emergency department today with wheezing and a cough. Patient's physical exam was as noted in the physical exam portion of this chart. Patient's COVID-19/Influenza swabs were negative. Patient's chest x-ray showed no acute process. I explained my physical exam findings as well as all test results to the patient. I answered all questions asked by the patient. Patient received IM Solu-Medrol and a breathing treatment which she stated helped her symptoms significantly. I stressed the importance of the patient taking her medication as prescribed. I stressed the importance of the patient following up with her primary care provider. I stressed the importance of the patient returning to the emergency department immediately if her symptoms were to worsen or if she were to develop any dizziness, shortness of breath, difficulty breathing, chest pain, blurry vision, loss of vision, nausea, vomiting, abdominal pain, fever, chills, back pain, or any other complaints. Patient verbalized agreement and understanding with this treatment plan and discharge. Differential Diagnosis Differential Diagnoses: The differential diagnosis associated with the presentation includes Wheezing Asthma exacerbation Bronchitis Admission/Observation Consideration of admission/observation: Escalation of care including admission/observation considered Patient would have been admitted to the hospital had her work up had any findings where hospital admission was appropriate and her clinical presentation warranted hospital admission. Lab Data [facility] Lab Attestation statement: I reviewed the patient's lab results. My interpretation of these studies and their corresponding values is that they are grossly normal. Labs: Lab Results 03/15/23 03/15/23 Range/Units 09:08 09:08 COVID-19 (VIKTORIYA) Negative (Negative) COVID-19 Clin Com See Note Influenza Type A (SWAPNA) Negative (Negative) Influenza Type B (SWAPNA) Negative (Negative) Influenza A & B Note See Note Independent Interpretation I performed an independent interpretation of an: Plain X-Ray Interpretation: My interpretation is in agreement with the radiologist's impression of this imaging study. EXAMINATION: XR CHEST AP portable, 9:05 AM CLINICAL INFORMATION: Upper respiratory symptoms COMPARISON: None available. TECHNIQUE: Frontal view of the chest was obtained. FINDINGS: No significant abnormality is noted involving the heart, lungs, mediastinum, bony thorax or soft tissues. XR/XR chest 1V IMPRESSION: No acute cardiopulmonary disease on this AP portable chest x-ray. Dictated By: Pio Cormier MD Signed By: Electronically signed by Pio Cormier MD 03/15/23 [id number] Discharge Plan Discharge Clinical Impression: Bronchitis Patient Disposition: Home, Self-Care Instructions: Acute Bronchitis (ED) Additional Instructions: Follow up with your primary care provider. Return to the emergency department immediately if your symptoms worsen or if you develop any dizziness, shortness of breath, difficulty breathing, chest pain, blurry vision, loss of vision, nausea, vomiting, abdominal pain, fever, chills, back pain, or any other complaints. Prescriptions: New prednisone 20 mg tablet 20 mg PO DAILY 7 Days Qty: 7 0RF doxycycline hyclate 100 mg tablet 100 mg PO BID 7 Days Qty: 14 0RF albuterol sulfate 90 mcg/actuation HFA aerosol inhaler 1 inh inhalation QID PRN (Reason: shortness of breath or wheezing) Qty: 8.5 0RF No Action ibuprofen 800 mg tablet 800 mg PO Q8H Referrals: Nena Cervantes MD [Primary Care Provider] - Stand Alone Forms: Work/School Release Interventions: ED Discharge Assessment Last Done: 03/15/23 10:17 Discharge Date/Time: 03/15/23 10:00 Print Language: Albanian
[2023-03-15 08:36] VITALS: RESP 18
[2023-03-15] MEDS: methylPREDNISolone Sod Succ 125 MG/2 ML VIAL 60 MG IM (08:41)
--- NOTE | 2023-03-15 08:42 | PC.NURSE ---
patient a&ox3, lungs wheezing throughout, pt speaking in full sentences, vss, RT at bedside to do updraft, pt medicated per order, call cox within reach, will continue to monitor
[2023-03-15] MEDS: Albuterol Sulfate 7.5 MG, Albuterol Sulfate (0.083%) 2.5 MG 10 MG INHALE (08:51)
[2023-03-15 08:52] VITALS: PULSE 94; RESP 20; O2SAT 98
[2023-03-15 09:04] VITALS: BP 139/74; PULSE 99; RESP 20; TEMP 36.9; O2SAT 93
--- NOTE | 2023-03-15 09:10 | PC.NURSE ---
pt xray performed
[2023-03-15 09:35] LABS: COVID-19 Test Negative (Negative); IDNOW Serial# 08D9AD1C; IDNOW Serial# BCCEAD1C; Influenza A Negative (Negative); Influenza B2 Negative (Negative)
[2023-03-15 09:47] VITALS: BP 138/78; PULSE 95; RESP 18; TEMP 36.7; O2SAT 92
--- NOTE | 2023-03-15 09:50 | PC.NURSE ---
pt a&ox2, vss, pt d/o 4/10 chest pain d/t coughing and wheezing. expiratory wheezing noted upon auscultation throughout. no WOB displayed. pt able to speak in full sentences w/o difficulty. call cox placed within reach. will continue to monitor.
== END 2023-03-15 10:00 | disposition home or self-care (01) ==
PROVIDERS: Physician Assistant Medical; Emergency Provider Student in an Organized Health Care Education/Training Program; PCP Family Medicine
DX: J40 Bronchitis, not specified as acute or chronic (principal); R05.9 Cough, unspecified; Z20.822 Contact with and (suspected) exposure to COVID-19; Z20.828 Contact with and (suspected) exposure to other viral communicable diseases; Z79.899 Other long term (current) drug therapy
CPT/HCPCS: 71045; 87502; 87635; 94640; 96372; 99284; 99285; J2930

== ENCOUNTER 2023-05-25 16:53 | Outpatient (REF) | payer OTHER, SELFPAY ==
[2023-05-25 17:02] LABS: MANUAL DIFF FLAG NO
[2023-05-25 17:10] LABS: Basophils Percent Auto 0.4 % (0-2); Eosinophils Absolute Auto 0.3 X10*3/uL (0.0-0.4); Eosinophils Percent Auto 3.1 % (0-4); Hematocrit 43.4 % (37.0-47.0); Hemoglobin 14.4 g/dl (12.0-16.0); Imm Gran Abs Auto 0.02 X10*3/uL (0.00-0.03); Imm Gran Pct Auto 0.2 % (0.0-0.4); Lymphocytes Absolute Auto 3.1 X10*3/uL (1.2-4.9); Lymphocytes Percent Auto 33.1 % (20-40); Mean Corpuscular HGB Conc 33.2 g/dl (31.0-35.0); Mean Corpuscular Hemoglobin 29.1 pg (27.0-33.0); Mean Corpuscular Volume 87.7 fL (80.0-98.0); Mean Platelet Volume 9.1 fL (9.4-12.3); Monocytes Absolute Auto 0.6 X10*3/uL (0.1-1.2); Monocytes Percent Auto 6.8 % (2-11); Neutrophils Absolute Auto 5.3 x10*3/uL (2.0-8.3); Neutrophils Percent Auto 56.4 % (45-73); Platelet Count 272 X10*3/uL (160-400); Red Blood Count 4.95 X10*6/uL (4.20-5.50); Red Cell Distribution Width 13.6 % (11.0-16.0); White Blood Count 9.3 X10*3/uL (4.8-10.8)
[2023-05-25 17:36] LABS: Alanine Aminotransferase 17 U/L (0-31); Alkaline Phosphatase 64 U/L (39-117); Anion Gap 15 (12-20); Aspartate Amino Transferase 25 U/L (5-31); Bilirubin Total 0.4 mg/dL (0.0-1.0); Blood Urea Nitrogen 17 mg/dL (9-16); Calcium 9.7 mg/dL (8.4-10.2); Carbon Dioxide 25 mmol/L (22-29); Chloride 105 mmol/L (96-108); Estimated Glomerular Filt Rate > 60; Glucose Random 127 mg/dL (60-115); Potassium 4.2 mmol/L (3.3-5.1); Sodium 141 mmol/L (135-145); Total Protein 7.2 g/dL (6.5-8.0)
== END 2023-05-25 16:54 | disposition home or self-care (01) ==
LOC: HO.LAB 16:53
PROVIDERS: Visit Provider Urology
DX: Z85.528 Personal history of other malignant neoplasm of kidney (principal)
CPT/HCPCS: 36415; 80053; 85025

== ENCOUNTER 2023-08-09 08:57 | Outpatient (AMB) | payer OTHER, SELFPAY ==
--- NOTE | 2023-08-09 09:06 | A.OFFVIS_ITS ---
Intake Intake Visit Reasons: ov- left knee pain swelling Intake Note: Leila gupta 53 year old female presents today for a follow up of left knee. Patient reports that the last injection she received provided her relief for a couple of weeks. States the day after [place] her left foot was swollen and her knee was throbbing. Denies any recent injury. Finds no relief with ibuprofen. Allergies amlodipine [From Norvasc] Allergy (Intermediate, Verified 08/09/23 09:18) Swelling Latex, Natural Rubber Allergy (Intermediate, Verified 08/09/23 09:18) Difficulty Breathing,itching metoprolol Adverse Reaction (Verified 08/09/23 09:18) Unknown HPI ov- left knee pain swelling HPI Details 53-year-old female who returns to the [facility] today for a follow-up of left knee pain. She reports she had swollen left foot and throbbing pain in her left knee the day after [place]. She currently states she only has pain in her left knee. She had an injection in the past which provided her relief for about 2 weeks. She denies any recent injury. She finds no relief with ibuprofen. 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 Tenderness along the medial joint line. Full ROM with crepitus. Negative Scott?s. No ligamentous laxity. NVI. Office Procedures Joint Injection/Drain Joint Injection/Drain Primary Site: left knee Prep: site was prepped using aseptic technique, ethochloride spray was applied and injection warnings given Injected: 80 mg of, DepoMedrol, with 8 mL of, 1% plain lidocaine and in the joint Approach Used: anterolateral Procedure: The patient tolerated the procedure well and there was some relief with the local anesthesia Coding 16035 - Glenohumeral/Tronchanteric Bursa/Intraarticular Procedure code (CPT) selection complete Assessment & Plan Assessment & Plan (1) Patellofemoral arthritis of left knee: Code(s): M17.12 - Unilateral primary osteoarthritis, left knee Plan We discussed options today which include steroid injection. They did consent to move forward with the left knee injection, which was tolerated well. I recommended rest, ice and elevation and OTC anti-inflammatories PRN for discomfort. An MRI of the left knee was also ordered to further evaluate the integrity of the meniscus. She will f/u once the scan is completed. Orders: Orders MR knee LT wo con Today M17.12 - Unilateral primary osteoarthritis, left knee Patient Instructions: Scribed for Krissy Burns PA-C, by Eron Beasley director medical surgical, on 08/09/2023 at 8:30 AM PATRICIA. Sheba, Krissy Burns PA-C, have personally reviewed and agree with the information entered by the scribe. Coding Level of Care Code Est Pt Level 3 (18533) Diagnoses Patellofemoral arthritis of left knee M17.12 CPT Codes Coding - Joint 7: 89799 - Glenohumeral/Tronchanteric Bursa/Intraarticular ([id number])
== END 2023-08-09 09:42 | disposition home or self-care (01) ==
PROVIDERS: PCP Family Medicine; Visit Provider Physician Assistant
DX: M17.12 Unilateral primary osteoarthritis, left knee (principal)
CPT/HCPCS: 20610; 99213

== ENCOUNTER → 2023-08-09 08:57 | Outpatient (BNVA) | payer OTHER, SELFPAY | PROVIDERS: PCP Family Medicine; Visit Provider Physician Assistant | DX: M17.12 Unilateral primary osteoarthritis, left knee (principal) | CPT/HCPCS: 20610; J1040 ==

== ENCOUNTER 2023-08-27 07:27 | Outpatient (REF) | payer OTHER, SELFPAY ==
--- NOTE | ~2023-08-27 | MR_ITS ---
EXAMINATION: MR KNEE WITHOUT CONTRAST, LEFT CLINICAL INFORMATION: Left knee pain, osteoarthritis COMPARISON: Radiographs 03/20/2022 TECHNIQUE: MRI of the knee without contrast was performed using routine sequences on a high-field scanner. FINDINGS: MENISCI: Medial Meniscus: There is a small oblique undersurface tear extending to the meniscal periphery of the posterior horn adjacent to the meniscal root. There is irregular tearing along the superior articular surface of the posterior horn extending to the junction with the meniscal body with a small meniscal flap displaced into the meniscofemoral recess. Lateral Meniscus: Minimal inner margin fraying fraying of the meniscal body. LIGAMENTS: Cruciate: Intact Collateral: Intact thickening of the MCL likely due to a remote sprain. EXTENSOR MECHANISM: Intact ARTICULAR CARTILAGE/BONE: Patellofemoral Compartment: Mild cartilage thinning and surface irregularity of the lateral patellar facet. Small marginal osteophytes. Medial Compartment: Mild cartilage thinning throughout the weightbearing aspect with small marginal osteophytes. Lateral Compartment: Focal cartilage irregularity of the posterior weightbearing femoral condyle. Small marginal osteophytes. JOINT FLUID AND BURSAE: Small joint effusion/Bonilla's cyst. MR/MR knee LT wo con IMPRESSION: 1. Tear of the posterior horn of the medial meniscus extending to the meniscal body with a small flap displaced into the meniscofemoral recess. 2. Minimal inner margin fraying of the lateral meniscus body. 3. Mild tricompartmental osteoarthritis with a small joint effusion/Bonilla's cyst.
== END 2023-08-27 07:28 | disposition home or self-care (01) ==
LOC: HO.MRI 07:27
PROVIDERS: Visit Provider Physician Assistant
DX: M17.12 Unilateral primary osteoarthritis, left knee (principal)
CPT/HCPCS: 73721

== ENCOUNTER 2023-11-20 07:39 | Outpatient (REF) | payer OTHER, SELFPAY ==
[2023-11-20 08:12] LABS: Estimated Average Glucose 134 mg/dL; Hemoglobin A1c % 6.3 % (<6.0)
[2023-11-20 08:39] LABS: Anion Gap 10 (12-20); Blood Urea Nitrogen 16 mg/dL (9-16); Calcium 9.5 mg/dL (8.4-10.2); Carbon Dioxide 30 mmol/L (22-29); Chloride 106 mmol/L (96-108); Cholesterol 183 mg/dL (<200); Estimated Glomerular Filt Rate > 60; Glucose Fasting 116 mg/dL (60-99); Glucose Random 114 mg/dL (60-115); HDL Cholesterol 47 mg/dL (>40); LDL Cholesterol Calculated 103 mg/dL (<100); Potassium 4.4 mmol/L (3.3-5.1); Sodium 142 mmol/L (135-145); Triglycerides 166 mg/dL (<150)
== END 2023-11-20 07:40 | disposition home or self-care (01) ==
LOC: HO.LAB 07:39
PROVIDERS: Visit Provider Family Medicine
DX: Z00.00 Encounter for general adult medical examination without abnormal findings (principal); Z13.6 Encounter for screening for cardiovascular disorders; R73.9 Hyperglycemia, unspecified
CPT/HCPCS: 36415; 80048; 80061; 83036; 84443

== ENCOUNTER 2023-11-23 08:56 | Outpatient (AMB) | payer OTHER, SELFPAY ==
--- NOTE | 2023-11-23 09:09 | A.OFFVIS_ITS ---
Intake Intake Visit Reasons: Newprob-Left elbow pain/bump Intake Note: Leila a 53 year old right hand dominant female presents today for an evaluation of lump on left elbow. Patient reports that she noticed a painful lump around 11/07/23. States numbness in her hand and an achy sensation in her forearm. Denies any injury. Hx of CTR. Allergies amlodipine [From Norvasc] Allergy (Intermediate, Verified 11/23/23 10:09) Swelling Latex, Natural Rubber Allergy (Intermediate, Verified 11/23/23 10:09) Difficulty Breathing,itching metoprolol Adverse Reaction (Verified 11/23/23 10:09) Unknown HPI Newprob-Left elbow pain/bump HPI Details 53-year-old right hand dominant female jesse rhoades presents to the office today for evaluation of left elbow pain. She reports she noticed a painful lump on her elbow on 11/07/23. She also c/o soreness and constant numbness in her hand as well as an achy sensation in her forearm. She denies any injury. She has a history of bilat CTR. 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 No erythema or swelling. ROM full without pain. Tenderness over the lateral epicondyle and pain with resisted wrist extension. NVI. Left wrist: Normal to inspection. Tenderness over the carpal canal. Numbness and tingling over the median nerve distribution of the right hand. Able to make a full fist and fully extend all fingers. Positive Tinel's. Assessment & Plan Assessment & Plan (1) Lateral epicondylitis of left elbow: Code(s): M77.12 - Lateral epicondylitis, left elbow (2) Carpal tunnel syndrome on left: Code(s): G56.02 - Carpal tunnel syndrome, left upper limb Plan An EMG/nerve conduction study along with occupational therapy was ordered for the RUE in the office today. Once the study is complete, she will contact me to determine the next best step in her treatment. Orders: Orders NE electromyogram (EMG) Today R20.0 - Anesthesia of skin, R20.2 - Paresthesia of skin OT Evaluation and Treatment Today M77.12 - Lateral epicondylitis, left elbow NE nerve conduction velocity Today R20.0 - Anesthesia of skin, R20.2 - Paresthesia of skin Patient Instructions: Scribed for Krissy Burns PA-C, by Eron Beasley medical oncologist, on 11/23/2023 at 9:00 AM EST. I, Krissy Burns PA-C, have personally reviewed and agree with the information entered by the scribe. Coding Level of Care Code Est Pt Level 3 (05170) Diagnoses Lateral epicondylitis of left elbow M77.12 Carpal tunnel syndrome on left G56.02
== END 2023-11-23 10:46 | disposition home or self-care (01) ==
PROVIDERS: PCP Family Medicine; Visit Provider Physician Assistant
DX: M77.12 Lateral epicondylitis, left elbow (principal); G56.02 Carpal tunnel syndrome, left upper limb
CPT/HCPCS: 99213

== ENCOUNTER → 2023-11-23 08:56 | Outpatient (BNVA) | payer OTHER, SELFPAY | PROVIDERS: PCP Family Medicine; Visit Provider Physician Assistant ==

== ENCOUNTER 2023-12-11 07:30 | Outpatient (RCR) | payer OTHER, SELFPAY ==
--- NOTE | 2023-12-07 08:10 | MHC.OT.EP ---
[address] [phone] Occupational Therapy Plan of Care Patient Name: Leila Lundberg Date of Evaluation: 12/07/23 Diagnosis: Left CTS and Epicondylitis Pain Location: Mild resting pain in left lateral elbow 6/10 w/ more forceful tasks Pain Score: 3 Pain Scale Used: Numeric (0 - 10) Aggravating Factors: Reaching out arm Alleviating Factors: Trialed cold pack, didn't notice difference Assessment: 53 yo female developed acute onset of left elbow pain about one month ago after sleeping on her arm. She had ache in her volar forearm down to her hand w/ some numbness in her hand. She has hx of CTR and is scheduled for nerve conduction 12/19/23. On assessment today, she demo's low left tick eradicator strength and even more weakness and pain w/ extended gripping. She has tenderness to palpate lateral epicondyle and dorsal forearm w/ painful resisted wrist extension. She also has positive Tinels over left wrist and occasional numbness and tingling in left hand and forearm. I anticipate she will do well with cont'd therapy to address pain and weakness associated with acute lateral epicondylitis with chronic carpal tunnel symptoms as well. Frequency and Duration: The patient will be seen 2x/wk for 4 weeks Short Term Goals: Ind w/ HEP Progress to eccentric exercises Pt to report pain free w/ light daily activities Abe Teacher Goals: Ind w/ progression of strengthening routine Left gross grasp 25lb w/ minimal discomfort Pt to report ease w/ sleep w/ modification positioning Treatment Plan: Therapeutic Exercise Therapeutic Activity Home Exercise Program Splinting Patient Education ADL Training Ultrasound Iontophoresis MHP Cold Packs Soft Tissue Mobilization Kinesiotaping Counter Force Brace Dexamethasone Electronically Signed By: Anne Marie Gilman OTR/Raisa CHT Please Sign and return to therapist. Thank you once again for your referral.
--- NOTE | 2023-12-26 11:55 | MHC.OT.DC ---
[address] [phone] F: [phone] Occupational Therapy Discharge Note Patient Name: Liela Lundberg Provider: Krissy Burns PA-C Diagnosis: Left CTS and Epicondylitis Date of Evaluation: 12/07/23 Date of Discharge: 12/26/23 Treatments to Date: 3 Discharge Status: Achieved Goals Improved Function Independent with HEP Discharge Summary: Leila was seen for brief course of OT for left CTS and epicondylitis. She is doing well w/ zero to low pain in left lateral elbow, good follow through w/ stretches and CFB wear, progressing well w/ exercises. No further OT needed at this time. Electronically Signed By: KECIA Fontenot/Raisa CHT Reviewed/agree with student documentation: Therapist: Please Sign and return to therapist, thank you for your referral.
== END 2023-12-26 11:55 | disposition home or self-care (01) ==
LOC: HO.OT 07:30
PROVIDERS: PCP Family Medicine; Visit Provider Physician Assistant
DX: M77.12 Lateral epicondylitis, left elbow (principal)
CPT/HCPCS: 97033; 97110; 97140; 97165

== ENCOUNTER 2023-12-28 14:56 | Outpatient (REF) | payer OTHER, SELFPAY ==
--- NOTE | 2023-12-28 15:01 | EMG_ITS ---
Chief complaint: Left forearm/hand numbness History bilateral carpal tunnel surgery . Reason for referral: Evaluate for Carpal Tunnel Syndrome or ulnar neuropathy Referred by: Krissy RIVERA Procedure done: Left upper extremity NCS/EMG Precautions and/or limitations: None The limb temperature was monitored continuously and remained between 32-36 degrees C during the performance of the NCS. Nerve Conduction Studies Anti Sensory Summary Table ?Stim Site NR Onset (ms) Norm Onset (ms) Peak (ms) Norm Peak (ms) O-P Amp (?V) Norm O-P Amp Site1 Site2 Delta-0 (ms) Dist (cm) Brandon (m/s) Norm Brandon (m/s) Left Median Anti Sensory (2nd Digit) Wrist ? 3.0 3.9 <3.6 42.7 >10 Wrist 2nd Digit 3.0 14.0 47 Left Radial Anti Sensory (Thumb) Forearm ? 1.3 2.1 <3.1 33.1 Forearm Thumb 1.3 0.0 Left Ulnar Anti Sensory (5th Digit) Wrist ? 2.3 3.0 <3.7 19.2 >15.0 Wrist 5th Digit 2.3 14.0 61 Motor Summary Table ?Stim Site NR Onset (ms) Norm Onset (ms) O-P Amp (mV) Norm O-P Amp iAmp (mV) Amp (1st) (%) Site1 Site2 Delta-0 (ms) Dist (cm) Brandon (m/s) Norm Brandon (m/s) Left Median Motor (Abd Poll Brev) Wrist ? 4.5 <3.9 11.7 >4.5 13.8 100.0 Elbow Wrist 4.2 22.0 52 >45 Elbow ? 8.7 10.7 12.9 91.5 Left Ulnar Motor (Abd Dig Minimi) Wrist ? 3.0 <3.0 7.8 >5 10.6 100.0 B Elbow Wrist 3.6 18.5 51 >45 B Elbow ? 6.6 7.9 10.6 101.3 A Elbow B Elbow 1.9 10.0 53 >45 A Elbow ? 8.5 8.3 11.0 106.4 EMG ?Side Muscle Nerve Root Ins Act Fibs Psw Amp Dur Poly Recrt Int Pat Comment Left FlexCarRad Median C6-7 Nml Nml Nml Nml Nml 0 Nml Complete Left Biceps Musculocut C5-6 Nml Nml Nml Nml Nml 0 Nml Complete Left Triceps Radial C6-7-8 Nml Nml Nml Nml Nml 0 Nml Complete Left Deltoid Axillary C5-6 Nml Nml Nml Nml Nml 0 Nml Complete Left Abd Poll Brev Median C8-T1 Nml Nml Nml Nml Nml 0 Nml Complete FINDINGS: Left median motor nerve showed prolonged distal latency, normal amplitude and normal conduction velocity. Left median sensory nerve showed prolonged peak latency. All other nerves tested were within normal. Concentric needle EMG was performed in selected muscles of the left upper extremity, including APB muscle. Study did not reveal signs of electric abnormalities as shown in the table below. IMPRESSION: 1. This is an abnormal study. 2. There is electrodiagnostic evidence for left moderate-severe median neuropathy at the wrist, consistent with carpal tunnel syndrome. 3. There is no electrodiagnostic evidence for ulnar neuropathy, brachial plexopathy, or cervical radiculopathy. Thank you for your kind referral. Renata Jean Baptiste MD, GENE Board Certified, [place] [employer] and [employer] (ABPMR) Board Certified, [place] Board of Electrodiagnostic Medicine (ABEM) [place] [id number] [facility]
== END 2023-12-28 14:57 | disposition home or self-care (01) ==
LOC: HO.NEURO 14:56
PROVIDERS: Visit Provider Physician Assistant
DX: R20.0 Anesthesia of skin (principal); R20.2 Paresthesia of skin
CPT/HCPCS: 95886; 95909

== ENCOUNTER → 2023-12-28 15:01 | Outpatient (BNV) | payer OTHER, SELFPAY | PROVIDERS: Visit Provider Physical Medicine & Rehabilitation | DX: G56.02 Carpal tunnel syndrome, left upper limb (principal) | CPT/HCPCS: 95886; 95909 ==

== ENCOUNTER 2024-05-09 09:19 | Emergency (ER) | payer OTHER, SELFPAY ==
--- NOTE | ~2024-05-09 | XR_ITS ---
EXAMINATION: XR FOOT, LEFT CLINICAL INFORMATION: Pain without injury COMPARISON: May 18, 2021 TECHNIQUE: AP, lateral, and oblique views of the left foot. FINDINGS: The bones and soft tissues are normal. No fracture. Alignment is anatomic. Joint spaces are maintained. XR/XR foot LT min 3V IMPRESSION: No interval change and no acute abnormalities Electronically signed by: Stormy Brown MD 05/09/2024 02:52 PM EDT
[2024-05-09 09:22] VITALS: BP 189/100; PULSE 81; RESP 20; TEMP 36.3; O2SAT 97; BMI 56.1
--- NOTE | 2024-05-09 10:48 | ED_ITS ---
HPI - Extremity Injury (Lower) General Chief Complaint: Extremity Injury, Lower Stated Complaint: L foot pain and swelling Time Seen by Provider: 05/09/24 10:04 Source: patient Mode of arrival: ambulatory Limitations: no limitations History of Present Illness HPI Narrative: Patient is a 54 old female who presents to the emergency department for evaluation. She reports 3 days she has been experiencing pain across the dorsum of her left foot extending to the anterior ankle. She reports having multiple areas of arthritis, for which she takes ibuprofen 600-800 mg twice daily on most days. She took ibuprofen this morning. She denies any numbness or tingling to the foot. Denies any redness or swelling . She denies any known precipitating injury. She does have a history of chronic left knee pain due to arthritis/meniscus injury for which she follows with orthopedics. She states that her right knee has began hurting since yesterday she believes this is because she is trying to offset her weight from the left side. Has full range of motion to the right knee without redness swelling rashes or lesions. No numbness or tingling to the right lower extremity. Related Data Home Medications ?Medication ?Instructions ?Recorded ?Confirmed ibuprofen 800 mg tablet 800 mg PO Q8H 10/03/22 sertraline 50 mg tablet 50 mg PO DAILY 08/09/23 citalopram 10 mg tablet (Celexa) 10 mg PO DAILY 11/23/23 Previous Rx's ?Medication ?Instructions ?Recorded albuterol sulfate 90 mcg/actuation 1 inh inhalation QID PRN shortness 03/15/23 aerosol inhaler of breath or wheezing #8.5 grams doxycycline hyclate 100 mg tablet 100 mg PO BID 7 days #14 tabs 03/15/23 prednisone 20 mg tablet 20 mg PO DAILY 7 days #7 tabs 03/15/23 Allergies Allergy/AdvReac Type Severity Reaction Status Date / Time amlodipine [From [facility]] Allergy Intermediate Swelling Verified 05/09/24 09:24 Latex, Natural Rubber Allergy Intermediate Difficulty Verified 05/09/24 09:24 Breathing,itching metoprolol AdvReac Unknown Verified 05/09/24 09:24 Review of Systems Review of Systems: Yes all other systems are reviewed and are negative PMFSH Past Medical History Attestation statement: The following information was validated with the patient. Source: old records reviewed Medical History Cancer of kidney Migraines Asthma Morbid obesity SVT (supraventricular tachycardia) Surgical History History of nephrectomy History of cholecystectomy Family History Family History Mother DVT (deep vein thrombosis) in Social History Social History (Updated 11/23/23 @ 10:10 by Marly Blake Vandana) Household Members: None Housing: Apartment Alcohol intake: current Alcohol intake frequency: holidays/special occasions only Alcohol type: wine and hard liquor Patient Tobacco Use Status: Former Tobacco user Advance Directives: No Advance Directives Information Provided: No Do you have a plan to hurt others: No Plan Current occupational status: employed 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 No acute distress. ?Normal affect. CVS: Heart sounds normal. Normal heart rate and rhythm.? Pulses normal.?? Respiratory: No respiratory distress.? Lung sounds clear to auscultation bilaterally?? Skin: Skin warm and dry.? Normal skin color.? Extremities: No lower extremity edema.? No calf ttp. 2+ DP/PT pulse bilaterally. Full range of motion to left ankle. No rashes erythema or warmth. ?Right knee with full range of motion, no laxity on exam, no rashes lesions or warmth. Neuro: Moves all extremities spontaneously. Sensation intact bilaterally. Ambulates with mildly antalgic gait. Medical Decision Making Medical Decision Making MDM Narrative: Patient is a 54-year-old female presenting to emergency department for evaluation of atraumatic/ankle pain as per HPI. She expresses concern about the possible ongoing chronicity of this pain as a and she has a [place] where she anticipates she will be doing a lot of walking. Despite taking ibuprofen her pain has continued. She declines FN for analgesia at this time. XR was obtained and is without evidence of fracture. Wells negative, no calf tenderness, unlikely DVT. No edema. Differential Diagnosis Differential Diagnoses: The differential diagnosis associated with the presentation includes (Muscular strain, stress fracture, metatarsalgia, ankle sprain) Independent Interpretation I performed an independent interpretation of an: Plain X-Ray (No fracture) Radiology Impression Discussion of test interpretation with radiology: I have reviewed the radiologist's reading. Radiologist Impression: XR/XR foot LT min 3V IMPRESSION: No interval change and no acute abnormalities External Record Review External record reviewed: Outpatient record Prescription Management I considered prescription management with: Pain Medication Discharge Plan Discharge Clinical Impression: Strain of foot, left Patient Disposition: Home, Self-Care Instructions: R.I.C.E. Treatment (ED) Additional Instructions: You can take ibuprofen 200 mg, 3 tablets (600mg) every 6-8 hours as needed for pain, in addition to Tylenol 500 mg, 2 tablets (1,000mg) every 4-6 hours as needed for pain, but not to exceed 3 doses daily (3,000mg).? As discussed, it is important that you rest, excessive walking such as during your upcoming trip may only exacerbate the pain that you are experiencing. You may consider the use a velcro splint for additional support, and be certain that you are wearing supportive footwear. Prescriptions: No Action prednisone 20 mg tablet 20 mg PO DAILY 7 Days Qty: 7 0RF doxycycline hyclate 100 mg tablet 100 mg PO BID 7 Days Qty: 14 0RF albuterol sulfate 90 mcg/actuation HFA aerosol inhaler 1 inh inhalation QID PRN (Reason: shortness of breath or wheezing) Qty: 8.5 0RF ibuprofen 800 mg tablet 800 mg PO Q8H sertraline 50 mg tablet 50 mg PO DAILY citalopram [Celexa] 10 mg tablet 10 mg PO DAILY Referrals: Nena Cervantes MD [Primary Care Provider] - Print Language: Kinyarwanda
[2024-05-09 15:25] VITALS: BP 189/100; PULSE 81; RESP 20; TEMP 36.3; O2SAT 97
== END 2024-05-09 15:28 | disposition home or self-care (01) ==
PROVIDERS: Emergency Provider Student in an Organized Health Care Education/Training Program; PCP Family Medicine
DX: S93.602A Unspecified sprain of left foot, initial encounter (principal); X50.9XXA Other and unspecified overexertion or strenuous movements or postures, initial encounter; Y93.89 Activity, other specified; Y92.019 Unspecified place in single-family (private) house as the place of occurrence of the external cause; Y99.9 Unspecified external cause status; E66.01 Morbid (severe) obesity due to excess calories; Z68.43 Body mass index [BMI] 50.0-59.9, adult
CPT/HCPCS: 73630; 99282; 99283

== ENCOUNTER 2024-07-16 08:22 | Outpatient (AMB) | payer OTHER, SELFPAY ==
[2024-07-16 08:31] VITALS: BP 148/80
--- NOTE | 2024-07-16 08:31 | A.OFFVIS_ITS ---
Vital Signs 07/16/24 08:31 Height 5 ft 3 in Intake Visit Reasons: ENP-ANURAG Intake Note: Patient presents fo ANURAG Allergies amlodipine [From [facility]] Allergy (Intermediate, Verified 07/16/24 08:34) Swelling Latex, Natural Rubber Allergy (Intermediate, Verified 07/16/24 08:34) Difficulty Breathing,itching metoprolol Adverse Reaction (Verified 07/16/24 08:34) Unknown PFSH Medical History Cancer of kidney Migraines Asthma Morbid obesity SVT (supraventricular tachycardia) Surgical History History of nephrectomy History of cholecystectomy Family History Mother DVT (deep vein thrombosis) in Social History Household Members: None Housing: Apartment Alcohol intake: current Alcohol intake frequency: holidays/special occasions only Alcohol type: wine and hard liquor Patient Tobacco Use Status: Former Tobacco user Current occupational status: employed 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 Orders: Orders RT home sleep study Today G47.9 - Sleep disorder, unspecified, R06.83 - Snoring Coding
--- NOTE | 2024-07-16 08:41 | MHC.OFFVIS ---
Vital Signs 07/16/24 08:31 Height 5 ft 3 in Intake Visit Reasons: ENP-ANURAG Allergies amlodipine [From [facility]] Allergy (Intermediate, Verified 07/16/24 08:34) Swelling Latex, Natural Rubber Allergy (Intermediate, Verified 07/16/24 08:34) Difficulty Breathing,itching metoprolol Adverse Reaction (Verified 07/16/24 08:34) Unknown HPI Comments Details: 54 year old female referred to us for sleep difficulty. Haaving diffiuclties with sleep snores, and stops breathing with long pauses Hard time falling asleep despite using melatonin, and tosses and turns, struggles with insomnia since childhood. 8 pm bedtime, practices sleep hygiene, tea at night, dark, cool, is a side sleeper, uses 2 pillows to prop herself up. 2-3x bathroom, difficulty falling asleep or sometimes will, A1c 6.3 [facility] at [facility], Zepbound, lost 2.5mg subcut 322, 312now was on it for 8weeks. Magnesium, Maalox for constipated. Wakes up in the morning feeling tired and dragging. Memory forgetful with things like planning, or trips and conversation. Mood is good, support network. Treadmill and weight machines. 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
--- NOTE | 2024-07-16 09:07 | MHC.OFFVIS ---
Vital Signs 07/16/24 08:31 BP 148/80 H Intake Visit Reasons: ENP-ANURAG [facility]ergies [facility] Allergy (Intermediate, Verified 07/16/24 08:34) Swelling Latex, Natural Rubber Allergy (Intermediate, Verified 07/16/24 08:34) Difficulty Breathing,itching metoprolol Adverse Reaction (Verified 07/16/24 08:34) Unknown HPI Comments Details: 54 year old female with difficulty sleeping / and insomnia referred to us for sleep evaluation. Patient was seen by myself and Dr. Tyler She has trouble sleeping and staying asleep since childhood, she is a side sleeper. Her niece tells her she snores loudly, and had to shake her vigorously to wake her up from sleep because she stops breathing for long pauses and gasps for air, as if she is choking. Goes to bed at 8pm, wakes up at 6am, gets up twice for the bathroom and feels exhausted in the AM. She takes Ibuprofen 600mg PRN for arthritic pain and Albuterol PRN for environmental asthma. Sometimes wakes up with headaches, however not difficult to manage. She feels like she is being smothered and had difficulty breathing at night due to her weight of her chest. Vision is good at baseline uses cheaters, denies dizziness, vertigo, n/v, RLS. She has taken Zepbound / [place] for 3 months is managed by [employer] Weight management, lost 20 pounds, is now 312 and walks daily, she is motivated to lose weight. Her mood is good. 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 Her BP is elevated today, 148/80. 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 Sexual orientation: Straight/Heterosexual Gender identity: Female Review of Systems Const All systems reviewed & are unremarkable except as noted in HPI and below Physical Exam Const General: cooperative, comfortable and no acute distress Nutritional Appearance: obese Orientation/consciousness: patient oriented x3 HEENT Face and sinus: Yes normal facial exam and Yes face symmetric Throat: Yes other (Mallampti score of 3) Eyes Pupils: Equal, round and reactive pupils present Neck Neck: Yes full ROM and Yes supple Resp Effort & Inspection: normal respiratory effort and able to speak in complete sentences Neuro General: patient oriented x3 and moves all extremities Cranial nerves: Yes CN's II-XII intact bilaterally, Yes Facial sensation intact/muscles of mastication intact, Yes Equal, round and reactive pupils present, Yes Normal accommodation reflex present, Yes Bilaterally intact EOM present, Yes Nystagmus not present, Yes Normal facial strength present, Yes Midline tongue present, Yes Symmetric palate elevation present, Yes Ability to bilaterally rotate head present and Yes Ability to bilaterally elevate shoulders present Motor exam (neuro): 5/5 motor strength present throughout and Normal motor muscle tone present throughout Deep tendon reflexes (DTR's): Right triceps reflex intensity grade: 2+, Left triceps reflex intensity grade: 2+, Rt Biceps (C5, C6): 2+, Left biceps reflex intensity grade: 2+, Right brachioradialis reflex intensity grade: 2+, Left brachioradialis reflex intensity grade: 2+, Right patellar reflex intensity grade: 2+ and Left patellar reflex intensity grade: 2+ Coordination: [id number] test normal Results Reviewed Results Reviewed: EEG - December 2023 Carpal Tunnel Syndrome L. arm L. forearm Radiculopathy Assessment & Plan Assessment & Plan (1) Snoring: Code(s): R06.83 - Snoring Category: Medical (2) Difficulty sleeping: Code(s): G47.9 - Sleep disorder, unspecified Category: Medical (3) Gasping for breath: Code(s): R06.89 - Other abnormalities of breathing Category: Medical Plan Patient is advised to undergo Home Sleep Study to assess for obstructed sleep apnea. Mallampti score of 3. Will follow up with patient after study to discuss results and appropriate treatments.at next (3month f/u) Sleep Hygiene education provided, cool dark room, no devices, limit fluids 4 hours prior to bedtime. BMI is XX Encouraged patient is motivated to lose weight, engages in daily walking. [facility] management at [facility] currently on Zepbound, monitors dietary caloric intake and meal planning. DASH Diet for Hypertension, per [place] [employer] #1 modifiable risk factor to prevent heart attacks is blood pressure control. Refer to: [email or web address]//[email or web address].diet Mediterranean Diet- Cardiovascular Risk reduction, weight loss, and control Type 2 diabetes mellitus. Blood Glucose Monitoring, A1C control for prevention of diabetes, nephropathy, neuropathy, retinopathy. For constipation Magnesium, 400mg PO nightly, may take Miralax or Docusate Laxative as needed. Orders: Orders RT home sleep study Today G47.9 - Sleep disorder, unspecified, R06.83 - Snoring Coding Level of Care Code New Pt Level 3 (78874) Diagnoses Snoring R06.83 Difficulty sleeping G47.9 Gasping for breath R06.89 Sleep Questionnaire Difficulty falling asleep: No Difficulty staying asleep?: Yes Number of arousals: 2-3 Snoring: Yes Witnessed apneas: Yes Gasping arousals: Yes Nocturia: No GERD: No Vivid dreams: No Acting out dreams: No Abnormal behavior in sleep: No Abnormal movements in sleep: No Morning headaches: No Excessive daytime sleepiness: Yes Daytime naps: No Restless legs: No Hallucinations: No Sleep paralysis: No Drop attacks: No Sleep Study: No CPAP: No
== END 2024-07-16 09:24 | disposition home or self-care (01) ==
PROVIDERS: Absent Provider Physician Assistant Medical; PCP Family Medicine; Visit Provider Physician Assistant Medical
DX: R06.83 Snoring (principal); G47.9 Sleep disorder, unspecified; R06.89 Other abnormalities of breathing
CPT/HCPCS: 99203

== ENCOUNTER → 2024-09-02 12:58 | Outpatient (REF) | payer OTHER, SELFPAY ==
--- OUTSIDE RECORDS SUMMARY | 2024-09-02 14:36 | XMS_ITS | Clinical Summary ---
Author Organization [facility] Address [address] [place] [phone] Phone Care Team Providers Care Slip Laster Name Role Phone Nena Lynn MD Primary Care Provider + Allergies Active Allergy Reactions Criticality Noted Date Comments Food Allergy Formula 11/14/2017 Kiwi- throat swells Hydrocodone-Acetaminophen 11/14/2017 Latex Itching 11/14/2017 Throat swells Oxycodone-Acetaminophen 11/14/2017 Medications Medication Sig Dispensed Refills Start Date End Date Status beclomethasone dipropionate (Qvar RediHaler) 80 mcg/actuation HFA aerosol breath activated inhaler TAKE 1 PUFF BY MOUTH TWICE A DAY 02/05/2018 Active albuterol HFA (PROAIR HFA ; PROVENTIL HFA ; VENTOLIN HFA) 90 mcg/actuation inhaler Inhale 2 Puffs into the lungs every 4 hours as needed. Active topiramate (TOPAMAX) 25 mg tablet Take 2 Tabs by mouth 2 times daily. 08/01/2017 Active cholecalciferol (VITAMIN D-3) 25 mcg (1,000 unit) tablet Take 1 Tab by mouth three times a week. Active tirzepatide, weight loss, 5 mg/0.5 mL solution Inject 5 mg into the skin once a week. 04/21/2024 Active tirzepatide (MOUNJARO) 2.5 mg/0.5 mL injection Inject 2.5 mg into the skin once a week. 03/06/2024 Active Active Problems Problem Noted Date Diagnosed Date Asthma 11/14/2017 Depression 11/14/2017 Elevated urine levels of vanillylmandelic acid ( VMA) 11/14/2017 Herpes simplex type 1 infection 11/14/2017 Migraine 11/14/2017 PSVT (paroxysmal supraventricular tachycardia) 0 11/14/2017 Overview (05/15/2024): 09/2017 intra/post op complication, Dr Mondragon Vitamin D deficiency 11/14/2017 Class 3 severe obesity due t o excess calories with serious comorbidity and body mass index (BMI) of 50.0 to 59.9 in adult 11/14/2017 Immunizations Name Administration Dates Next Due Hepatitis B (Vystmqz-R-Kiwvh , Recombivax HB-Adult) 19yo and older 03/24/2009,10/23/2008,09/24/2008, 992,11/19/1991,10/22/1991 MMR, measles mumps and rubel la Live (Priorix; M-M-R II) 12mo and older 12/02/1990,05/01/1978 Td Tetanus diptheria (Tdvax) 7yo and older 01/24/2005 Tdap Tetanus diptheria acell ular pertussis (Boostrix; Adacel) 7yo and older 10/23/2008 Surgical History Surgery Date Site/Laterality Comments CHOLECYSTECTOMY 08/09/2017 PROCEDURE: HISTORICAL CHOLECYSTECTOMY NEPHRECTOMY 05/2017 Left PROCEDURE: HISTORICAL NEPHRECTOMY; COMMENT: Partial Nephrectomy- Renal Cell Cancer CARPAL TUNNEL RELEASE 11/2014 Bilateral PROCEDURE: HISTORICAL CARPAL TUNNEL REL; COMMENT: Left 2014 & Right 05/2014 OTHER SURGICAL HISTORY PROCEDURE: [place] EGD BAND LIGATION ESOPHGEAL/GASTRIC VARICES Medical History Medical History Date Comments PSVT (paroxysmal supraventri cular tachycardia) (CMS/HCC) 11/14/2017 DX:PSVT (paroxysmal supraven tricular tachycardia) (HCC); COMMENT: 09/2017 intra/post op complication, Dr Mondragon Depression 11/14/2017 DX:Depression Migraine 11/14/2017 DX:Migraine Herpes simplex type 1 infection 11/14/2017 DX:Herpes simplex type 1 infection Vitamin D deficiency 11/14/2017 DX:Vitamin D deficiency History of kidney cancer 11/14/2017 DX:Hist ory of kidney cancer; COMMENT: L partial nephrectomy History of laparoscopic adju stable gastric banding 11/14/2017 DX:History of laparoscopic a djustable gastric banding Asthma 11/14/2017 DX:Asthma Elevated urine levels of vanillylmandelic acid (VMA) 11/14/2017 DX:Elevated urine levels o f vanillylmandelic acid (VMA) Morbid obesity with BMI of 4 0.0-44.9, adult (CMS/HCC) 11/14/2017 DX:Morbid obesity with BMI o f 40.0-44.9, adult (HCC) Family History Medical History Relation Name Comments Other: Pulmonary Emboli Mother Emergency Service Restorer kemar DVT's Relation Name Status Comments Mother Social History Tobacco Use Types Packs/Day Years Used Date Smoking Tobacco: Former Cigarettes 0 11/09/1987 - 08/10/1989 Smokeless Tobacco: Never Alcohol Use Standard Drinks/Week Comments Yes 1 (1 standard drink = 0.6 oz pur e alcohol) Sex and Gender Information Value Date Recorded Sex Assigned at Not on file Gender Identity Not on file Sexual Orientation Not on file Job Start Date Occupation Industry Not on file Not on file Not on file Obstetrics History Last Filed Vital Signs Vital Sign Reading Time Taken Comments Blood Pressure 143/91 04/09/2024 3:50 PM EDT Pulse 97 04/09/2024 3:50 PM EDT Temperature - - Respiratory Rate - - Oxygen Saturation - - Inhaled Oxygen Concentration - - Weight 140 kg (309 lb) 05/27/2024 2:41 PM EDT Height 160 cm (5' 3 ) 04/09/2024 3:50 PM EDT Body Mass Index 54.74 04/09/2024 3:50 PM EDT Plan of Treatment Upcoming Encounters Date Type Department Care Team (Late st Contact Info) Description 09/24/2024 3:15 PM EST Office Visit Bariatric Surgery - [place] [facility] [address] [address] Serene Zapata PA [address] [address] 10/13/2024 7:[address] [facility] Xray [address] [place] [address] Health Maintenance Due Date Last Done Comments Pneumococcal Vaccine: Pediatrics (0 to 5 Years) and At-Risk Patients (6 to 64 Years) (1 of 2 - PCV) 1976 Cervical Cancer Screening: Pap Smear 1991 Zoster Vaccines (1 of 2) 2020 Breast Cancer Screening 09/15/2021 09/15/2019 Cholesterol Screening (Lipid Panel) 07/26/2022 Colorectal Cancer Screening: Colonoscopy 07/26/2022 Depression Screening 07/26/2022 HIV Screening 07/26/2022 Hepatitis C Screening 07/26/2022 Social Influencers of Health Screening 07/26/2022 COVID-19 Vaccine ( season) 2024 Influenza Vaccine (#1) 2024 DTaP,Tdap,and Td Vaccines (4 - Td or Tdap) 08/22/2029 08/22/2019, 10/23/2008, 01/24/2005 MMR Vaccines Completed 12/02/1990, 05/01/1978 Hepatitis B Vaccines Completed 03/24/2009, 10/23/2008, 09/24/2008, Additional history exists HIB Vaccines Aged Out No longer eligi ble based on patient's age to complete this topic HPV Vaccines Aged Out No longer eligi ble based on patient's age to complete this topic Hepatitis A Vaccines Aged Out No long er eligible based on patient's age to complete this topic IPV Vaccines Aged Out No longer eligi ble based on patient's age to complete this topic Meningococcal ACWY Vaccine Aged Out N o longer eligible based on patient's age to complete this topic RSV Immunization Patients Under 20 months Aged Out No longer eligible based on patient's age to complete this topic Varicella Vaccines Aged Out No longer eligible based on patient's age to complete this topic Procedures Procedure Name Priority Date/Time Associated Diagnosis Comments [facility] S[facility] Routine 09/15/2019 2:33 PM EST Encounter for screening mammogram for malignant neoplasm of breast from Last 3 Months or Most Recently Relevant to Health Maintenance Results * [facility]EN[facility] (09/15/2019 2:33 PM EST) Anatomical Region Laterality Modality Mammography 09/15/2019 9:00 AM EST Narrative 09/15/2019 2:33 PM EST [facility] Diagnostic Imaging Department [address] [place], [place] [id number] Patient: ??LEILA LUNDBERG ?/Age/Sex: 1970 - 49 - F Unit#: ??[id number] ? Location/Status: ??SPDIMAM/REG CLI ? Mnemonic/Ordering Site: ??DIGSC/SPMAM Ordering Physician: ??NENA LYNN MD [facility] Screening Digital - 09/15/19922 History: Bilateral breast cancer screening. Technique: Bilateral digital mammography. Conventional CC and MLO projections with tomosynthesis MLO views and computer aided detection. Findings: Comparison: 05/07/2017 and multiple preceding studies dating back to 11/29/2012. Breast tissue is mostly fatty replaced (category a density) bilaterally (as calculated by [employer] Volpara software). ??There are benign calcifications bilaterally. ?? There is no suspicious group of microcalcification, no suspicious mass, architectural distortion or suspicious asymmetry. Impression: ??No evidence of malignancy. BIRADS category 2, benign findings, 3342F 18488, 61921 Note: Patient information entered ??into a reminder system with a target due date for the next mammogram; PQRI II 0214F Dictating Physician: ??JON DUFFY MD Electronically Signed by: ??JON DUFFY MD Dic Date/Time: ??09/15/19 1432 Sign date/Time: ??09/15/19 1433 Procedure Note Jon Duffy - 08/02/2022 [facility] Diagnostic Imaging Department [address] [place] [id number] Patient: LEILA LUNDBERG Vandana /Age/Sex: 1970 - 49 - F Unit#: [id number] Location/Status: SPDIMAM/REG CLI Mnemonic/Ordering Site: [facility] Ordering Physician: NENA LYNN MD [facility] Screening Digital - 09/15/19922 History: Bilateral breast cancer screening. Technique: Bilateral digital mammography. Conventional CC and MLOprojections with tomosynthesis MLO views and computer aided detection. Findings: Comparison: 05/07/2017 and multiple preceding studies dating back to11/29/2012. Breast tissue is mostly fatty replaced (category a density) bilaterally(as calculated by [employer] Volpara software). There are benigncalcifications bilaterally. There is no suspicious group of microcalcification, nosuspicious mass, architectural distortion or suspicious asymmetry. Impression: No evidence of malignancy. BIRADS category 2, benign findings, 3342F 10646, 52761 Note: Patient information entered into a reminder system with a targetdue date for the next mammogram; PQRI II 5267N Dictating Physician: JON DUFFY MD Electronically Signed by: JON DUFFY MD Dic Date/Time: 09/15/19 1432 Sign date/Time: 09/15/19 143 Nena Lynn MD IMG BI PROCEDURE S from Last 3 Months or Most Recently Relevant to Health Maintenance Care Teams Slip Laster Relationship Specialty Start Date End Date Nena Lynn MD [address] [place] [phone] PCP - General Internal Medicine 08/14/17
== END | disposition home or self-care (01) ==
LOC: HO.SL 12:58
PROVIDERS: PCP Family Medicine; Visit Provider Physician Assistant Medical
DX: G47.9 Sleep disorder, unspecified (principal); R06.83 Snoring
CPT/HCPCS: 95806

== ENCOUNTER → 2024-09-03 13:07 | Outpatient (BNV) | payer OTHER, SELFPAY | PROVIDERS: PCP Family Medicine; Visit Provider Psychiatry & Neurology Neurology | DX: G47.33 Obstructive sleep apnea (adult) (pediatric) (principal) | CPT/HCPCS: 95806 ==

== ENCOUNTER 2024-09-23 13:44 | Outpatient (REF) | payer OTHER, SELFPAY | END 2024-09-23 13:45 | disposition home or self-care (01) | LOC: HO.XRAY 13:44 | PROVIDERS: PCP Family Medicine; Visit Provider Family Medicine | DX: M79.672 Pain in left foot (principal) | CPT/HCPCS: 73650 ==

== ENCOUNTER → 2024-09-23 13:49 | Outpatient (BNV) | payer OTHER, SELFPAY | PROVIDERS: PCP Family Medicine; Visit Provider Radiology Diagnostic Radiology | DX: M79.672 Pain in left foot (principal) | CPT/HCPCS: 73650 ==

== ENCOUNTER 2024-10-13 13:33 | Outpatient (AMB) | payer OTHER, SELFPAY ==
--- NOTE | 2024-10-13 13:34 | MHC.OFFVIS ---
Vital Signs 10/13/24 13:35 Height 5 ft 3 in Weight 326 lb 8 oz BMI 57.8 Pulse 64 Pulse Source Pulse Oximeter Pulse Oximetry (%) 99 Oxygen Delivery Method Room Air Intake Visit Reasons: Follow up [facility] Intake Note: Follow up [facility]. Sleep study on file done on 09/03/24. CPAP order placed 09/11/2024. has not received CPAP due to paying out of pocket(will be calling this week). Allergies [facility] Allergy (Intermediate, Verified 07/16/24 08:34) Swelling Latex, Natural Rubber Allergy (Intermediate, Verified 07/16/24 08:34) Difficulty Breathing,itching kiwi Allergy (Unknown, Verified 10/13/24 13:38) Itching metoprolol Adverse Reaction (Verified 07/16/24 08:34) Unknown HPI Comments Details: 54 year old female with difficulty sleeping / and insomnia referred to us for sleep evaluation. She has difficulty sleeping and staying asleep since childhood. Her niece tells her she snores loudly, and had to shake her vigorously to wake her up from sleep due to long pauses with gasping and choking. Bedtime is 8pm, wakes up at 6am, gets up twice for the bathroom and is fatigued daily. She takes Ibuprofen 600mg PRN for arthritic pain and Albuterol PRN for environmental asthma. Denies headaches, photophobia, phonophobia, vertigo, dizziness. She was denied Zepbound / Monjarou by insurance and plans to go to back to weight management, she is motivated to lose weight. She has trouble walking due to an old L. knee injury and arthritis. She feels emotionally overwhelmed since she has a lot going on in her life at the moment. 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 Sexual orientation: Straight/Heterosexual Gender identity: Female Physical Exam Vital Signs: Last Vital Signs Pulse 64 10/13/24 13:35 Pulse Ox 99 10/13/24 13:35 Oxygen Delivery Method Room Air 10/13/24 13:35 BMI result Body Mass Index 57.8 Const General: cooperative, comfortable and no acute distress Nutritional Appearance: obese Orientation/consciousness: patient oriented x3 HEENT Face and sinus: Yes normal facial exam and Yes face symmetric Throat: Yes other ([place] score of 3) Eyes Pupils: Equal, round and reactive pupils present Neck Neck: Yes full ROM and Yes supple Resp Effort & Inspection: normal respiratory effort and able to speak in complete sentences Neuro General: patient oriented x3 and moves all extremities Cranial nerves: Yes CN's II-XII intact bilaterally, Yes Facial sensation intact/muscles of mastication intact, Yes Equal, round and reactive pupils present, Yes Normal accommodation reflex present, Yes Bilaterally intact EOM present, Yes Nystagmus not present, Yes Normal facial strength present, Yes Midline tongue present, Yes Symmetric palate elevation present, Yes Ability to bilaterally rotate head present and Yes Ability to bilaterally elevate shoulders present Motor exam (neuro): 5/5 motor strength present throughout and Normal motor muscle tone present throughout Deep tendon reflexes (DTR's): Right triceps reflex intensity grade: 2+, Left triceps reflex intensity grade: 2+, Rt Biceps (C5, C6): 2+, Left biceps reflex intensity grade: 2+, Right brachioradialis reflex intensity grade: 2+, Left brachioradialis reflex intensity grade: 2+, Right patellar reflex intensity grade: 2+ and Left patellar reflex intensity grade: 2+ Coordination: [id number] test normal Results Reviewed Results Reviewed: Insurance approval 10/15/2024 for HST. Assessment & Plan Assessment & Plan (1) Snoring: Comment: Home Sleep Study equipment pick 10/15/2024 Code(s): R06.83 - Snoring Category: Medical (2) Difficulty sleeping: Code(s): G47.9 - Sleep disorder, unspecified Category: Medical (3) Anxiety and depression: Code(s): F41.9 - Anxiety disorder, unspecified; F32.A - Depression, unspecified Category: Medical Plan HST evaluation of sleep apnea Will complete labs to r/o deficiencies. Anxiety Zoloft 25mg PO daily at bedtime for 12 weeks. Follow up in 3 months. Orders: Orders Vitamin D 25-OH Total Today G47.9 - Sleep disorder, unspecified, R06.83 - Snoring Vitamin B12 and Folate Today G47.9 - Sleep disorder, unspecified, R06.83 - Snoring Methylmalonic Acid Today G47.9 - Sleep disorder, unspecified, R53.83 - Other fatigue Comprehensive Met. Panel Today G47.9 - Sleep disorder, unspecified, R06.83 - Snoring IRON PROFILE Today G47.9 - Sleep disorder, unspecified, R53.83 - Other fatigue Homocysteine Today G47.9 - Sleep disorder, unspecified, R06.83 - Snoring TSH reflex Free T4 Today F09 - Unspecified mental disorder due to known physiological condition Hemoglobin A1c Today G47.9 - Sleep disorder, unspecified, R06.83 - Snoring Complete Blood Count no Diff Today G47.9 - Sleep disorder, unspecified, R06.83 - Snoring Medications: New sertraline 25 mg PO DAILY 90 tabs 3RF anxiolytic 90 days MDD 25MDD F32.A - Depression, unspecified, F41.9 - Anxiety disorder, unspecified Patient Instructions: Sleep Hygiene education provided, cool dark room, no devices in bed, limit fluids 2 hours prior to bedtime. BMI is 57.8 patient is motivated to lose weight engages in daily walking as tolerable due to knee injury. Weight management, monitor dietary caloric intake and meal planning. DASH Diet for Hypertension, per [place] [employer] #1 modifiable risk factor to prevent cardio vascular events is good blood pressure control.Refer to: www.https//mydash.diet Mediterranean Diet- Cardiovascular Risk reduction, weight loss, and control of T2DM. For constipation Magnesium, 400mg PO nightly, may take Miralax or Docusate Laxative as needed. Coding Level of Care Code Est Pt Level 4 (11554) Diagnoses Snoring R06.83 Difficulty sleeping G47.9 Anxiety and depression F41.9; F32.A Time Spent (min) 30
[2024-10-13 13:35] VITALS: PULSE 64; O2SAT 99; BMI 57.8
--- OUTSIDE RECORDS SUMMARY | 2024-10-13 15:58 | XMS_ITS | Encounter Summary ---
Author Organization [facility] Address [address] [place] [address] Care Team Providers Care Director Regulatory Compliance Name Role Phone Nena Cervantes MD Primary Care Provider + Reason for Referral * Medications - Closed Specialty Diagnoses / Procedures Referred By Kristen mcclelland Referred To Contact Diagnoses Class 3 severe obesity due to excess calories with serious comorbidity and body mass index (BMI) of 50.0 to 59.9 in adult ([facility]) Serene Zapata PA [address] [address] Phone: tel: fax: Referral ID Status Reason Start Date Expiration Date Visits Re quested Visits Authorized [id number] Closed 1 1 Reason for Visit * Reason Comments Follow-up 1 month Encounter Details Date Type Department Care Team (Late st Contact Info) Description 09/24/2024 3:15 PM EST Office Visit Bariatric Surgery - [place] [address] [address] Serene Zapata PA [address] [address] Class 3 severe obesity due to excess calories with serious comorbidity and body mass index (BMI) of 50.0 to 59.9 in adult ([facility]) (Primary Dx); ANURAG (obstructive sleep apnea) Social History Tobacco Use Types Packs/Day Years Used Date Smoking Tobacco: Former Cigarettes 0 11/09/1987 - 08/10/1989 Smokeless Tobacco: Never Alcohol Use Standard Drinks/Week Comments Yes 1 (1 standard drink = 0.6 oz pur e alcohol) Comments Unknown Sex and Gender Information Value Date Recorded Sex Assigned at Not on file Legal Sex Female 9:06 PM EST Gender Identity Not on file Sexual Orientation Not on file documented as of this encounter Last Filed Vital Signs Vital Sign Reading Time Taken Comments Blood Pressure 150/84 09/24/2024 3:21 PM EST Pulse 101 09/24/2024 3:21 PM EST Temperature - - Respiratory Rate - - Oxygen Saturation - - Inhaled Oxygen Concentration - - Weight 147 kg (324 lb) 09/24/2024 3:21 PM EST Height 160 cm (5' 3 ) 09/24/2024 3:21 PM EST Body Mass Index 57.39 09/24/2024 3:21 PM EST documented in this encounter Ordered Prescriptions Prescription Sig Dispense Quantity Refills Last Filled Start Date End Date tirzepatide, weight loss, (Zepbound) 2.5 mg/0.5 mL injectionIndication s:Class 3 severe obesity due to excess calories with serious comorbidity and body mass index (BMI) of 50.0 to 59.9 in adult (CMS/HCC) Inject 0.5 mL (2.5 mg total) under the skin every 7 (seven) days. 2 mL 09/24/2024 documented in this encounter Progress Notes * MIGUEL Hunter - 09/24/2024 3:15 PM EST Leila Lundberg is a 54 y.o. year old female who presents for follow up regarding obesity. HPI: Ms. Lundberg is being followed for medical weight management As mentioned below, has a history of a Lap-Band Upper GI was checked after her last appointment which did show that the band has slipped out of place She subsequently followed up with Dr. Rodríguez to have fluid removed from the band, 6 cc were removedand band was emptied completely Patient has no current abdominal pain or acid reflux Has repeat UGI pending Hasn't followed up since summer 2023 She was paying [id number] for Zepbound Could no longer afford the medication due to other financial obligations Recently diagnosed w/ ANURAG Awaiting CPAP Would like to retry Zepbound She is status post gastric lap band with Dr. Rodríguez in 2003 She was very successful at first and even saw Dr. Melendez 5 years ago for refill Unfortunately she has gained a significant amount of weight from that time Attributes this to hormonal changes due to menopause She is currently at her highest weight Gets short of breath with walking long distances Recently had blood work which revealed an A1c greater than 6 although not currently on diabetic medication Is also interested in potentially having her Lap-Band removed States that her last fill was 5 years ago Has caused significant acid reflux She is not sure if it remains in good position Eating Habits: Has a lot of head hunger Physical Activity: Minimal due to body habitus and shortness of breath with activity 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 Rodríguez in 2003 Partial nephrectomy Social Habits: Non-smoker No recreational drug use No excessive alcohol use Body mass index is 57.39 kg/m??. ROS: GENERAL: No malaise, significant unintentional weight loss, fever, chills or night sweats. RESPIRATORY: No cough, wheezing or shortness of breath CARDIOVASCULAR: No chest pain, leg swelling or palpitations. GI: No abdominal discomfort, nausea, vomiting, or change in bowel habits. : No dysuria, frequency or incontinence. SKIN: No lesions, rash or itching. HEMATOLOGY/LYMPHOLOGY No prolonged bleeding, easy bruisability or swollen nodes. MUSCULOSKELETAL: No abnormalities. NEURO: No abnormalities. The remainder of the review of systems is noncontributory PAST MEDICAL HISTORY: Patient Active Problem List Diagnosis Asthma Depression Elevated urine levels of vanillylmandelic acid (VMA) Herpes simplex type 1 infection Migraine PSVT (paroxysmal supraventricular tachycardia) ([facility]/HCC) Vitamin D deficiency Class 3 severe obesity due to excess calories with serious comorbidity and body mass index (BMI) of50.0 to 59.9 in adult ([facility]) PAST SURGICAL HISTORY: Past Surgical History: Procedure Laterality Date CARPAL TUNNEL RELEASE Bilateral 11/2014 PROCEDURE: HISTORICAL CARPAL TUNNEL REL; COMMENT: Left 2014 & Right 05/2014 CHOLECYSTECTOMY 08/09/2017 PROCEDURE: HISTORICAL CHOLECYSTECTOMY NEPHRECTOMY Left 05/2017 PROCEDURE: HISTORICAL NEPHRECTOMY; COMMENT: Partial Nephrectomy- Renal Cell Cancer OTHER SURGICAL HISTORY PROCEDURE: [place] EGD BAND LIGATION ESOPHGEAL/GASTRIC VARICES SOCIAL HISTORY: Social History Tobacco Use Smoking status: Former Current packs/day: 0.00 Types: Cigarettes Start date: 11/09/1987 Quit date: 08/10/1989 Years since quittin.1 Smokeless tobacco: Never Substance Use Topics Alcohol use: Yes Alcohol/week: 1.0 standard drink of alcohol FAMILY HISTORY: Family History Problem Relation Name Age of Onset Other (Other: Pulmonary Emboli) Mother Chronic DVT's Family Status Relation Name Status Mother (Not Specified) No partnership data on file MEDICATIONS: Medications Discontinued During This Encounter Medication Reason tirzepatide, weight loss, 5 mg/0.5 mL solution tirzepatide (MOUNJARO) 2.5 mg/0.5 mL injection ACTIVE MEDICATIONS: No outpatient medications have been marked as taking for the 09/24/24 encounter (Office Visit) with MIGUEL Hunter. ALLERGIES: Allergies Allergen Reactions Food Allergy Formula Kiwi- throat swells Hydrocodone-Acetaminophen Latex Itching Throat swells Oxycodone-Acetaminophen PHYSICAL EXAM: Visit Vitals BP (!) 150/84 Pulse 101 Ht 1.6 m (63 ) Wt 147 kg (324 lb) BMI 57.39 kg/m?? Smoking Status Former BSA 2.37 m?? APPEARANCE: Alert and in no acute distress EYES: Conjunctiva normal and sclera normal and anicteric. LUNG: Chest no retractions. ABDOMEN: Soft, non-tender, without organomegaly or palpable masses. EXTREMITIES: Extremities warm and well perfused without clubbing, cyanosis, or edema. SKIN: Skin color and texture normal. No rashes or lesions. ASSESSMENT: 1. Class 3 severe obesity due to excess calories with serious comorbidity and body mass index (BMI)of 50.0 to 59.9 in adult (CMS/HCC) 2. ANURAG (obstructive sleep apnea) PLAN: 1. Obesity - The patient is a good candidate for medical weight management given a BMI of 57.39 with the following comorbid conditions ANURAG They remain dedicated to improving their health and quality of life as well as remaining physicallyactive. I have had a long discussion with the patient regarding medical weight management which includes both oral medications including stimulants/appetite suppressants versus injectable GLP-1 medications. Oral stimulant suppressants are meant to be used short-term and studies have shown that obesity needs to be treated as a chronic condition. We have decided to proceed with injectable GIP/GLP-1 medication - Zepbound The risks and benefits of this medication were discussed in length with the patient. Benefits include weight loss and overall healthier lifestyle with he hopes of improving any co morbid conditions. Risks include nausea/vomiting, diarrhea, injection site reaction, gastroparesis. We have also discussed the potential for thyroid cancer and multiple endocrine neoplasia; patient denies family history of either condition. We discussed that this medication should be used long-term and that obesity will be treated as a chronic condition. If and when patient stops this medication weight may come back. The patient will follow-up in the office every 4 weeks for a weight check and potential dose titration The patient will also continue to follow-up with the dietitian to ensure that they are working on proper eating habits in addition to using the medication. In female patients of childbearing age, we did discuss the changes to fertility as a result of significant weight loss; this can increase fertility We do not recommend patient's become or attempt to become while on weight loss medication Medication should be stopped at least 2 months prior to attempting to conceive If they do become while on medication, they should stop and follow up with the office and OBGYN as well They should consult with their CHANGE LEAD in regard to control during this timeframe Medication and lab orders: No orders of the defined types were placed in this encounter. Other orders: None cc: Nena Cervantes MD documented in this encounter Plan of Treatment Upcoming Encounters Date Type Department Care Team (Late st Contact Info) Description 12/23/2024 4:00 PM EDT Office Visit Bariatric Surgery - [place] 175 [facility] [address] [place] [address] Serene Zapata PA 271 [facility] [address] [place] [address] documented as of this encounter Visit Diagnoses Diagnosis Class 3 severe obesity due to excess calories with serious comorbidity and body mass index (BMI) of 50.0 to 59.9 in adult ([facility])- Primary ANURAG (obstructive sleep apnea) Obstructive sleep apnea (adult) (pediatric) documented in this encounter Discontinued Medications Medication Sig Discontinue Reason Start Date End Da te tirzepatide, weight loss, 5 mg/0.5 mL solution Inject 5 mg into the skin once a week. 04/21/2024 09/24/2024 tirzepatide (MOUNJARO) 2.5 mg/0.5 mL injection Inject 2.5 mg into the skin once a week. 03/06/2024 09/24/2024 documented as of this encounter Care Teams Director Regulatory Compliance Relationship Specialty Start Date End Date Nena Cervantes MD [address] [place] [address] PCP - General Internal Medicine 08/14/17 documented as of this encounter
--- OUTSIDE RECORDS SUMMARY | 2024-10-13 15:59 | XMS_ITS ---
Author Organization [facility] Address [address] [address] Care Team Providers Care Bologna Maker Name Role Phone Nena Cervantes Primary Care Provider UnavailPAULETTE Garcia Unavailable [phone] Allergies Allergen (clinical drug ingredient) Drug/Non Drug [...] Active Encounters Encounter Location Date Provider Diagnosis [facility] [address] [address] 09/09/2024 PAULETTE SANDERSON Plan Of Treatment No Information Progress Notes * Leila LUNDBERGDOB:1970 ( 54 yo F)Acc No.[id number]:09/09/2024 Patient:?Leila LUNDBERG Provider:?Paulette Morales DPM :1970???Age:54 Y???Sex:Female D ate:09/09/2024 Phone: Address:[address] [place] [phone] Pcp:Nena Cervantes Subjective: * Chief Complaints: * ???1. Lt heel pain/swelling. * Medical History:?Asthma, Esteban ar cell renal cell carcinoma, Supraventricular tachycardia, Hyperglycemia, Migraine, Obesity, vitamin D deficiency. * Surgical History:?cholecyste ctomy , gastric band , carpal tunnel release , partial nephrectomy . * Family History:? pulmonary embolism. * Social History:?tobacco: never alcohol: never. * Medications:?Taking ProAir H FA , Notes to Pharmacist: 90 mcg/inh, Taking Nortriptyline HCl 10 MG Capsule 1 capsule at bedtime Orally Once a day , Taking Flovent HFA , Notes to Pharmacist: 110 mcg/inh, Taking Cyclobenzaprine HCl 10 MG Tablet 1 tablet at bedtime as needed Orally Once a day * Allergies:?Kiwi: Allergy, La tuan: Allergy, Metoprolol: Allergy. Objective: * Vitals:? Assessment: Plan: * Treatment: * Billing Information: * Visit Code:? * Procedure Codes:? * Electronic signature of Evita MONTIELP.MJohann on 10/13/2024 at 03:59 PM EST Sign off status: Pending * Provider:?Paulette Morales DPMattie Date:?09/09 Generated for Mariluz polanco/Asha/Julio César on:?10/13/2024 03:59 PM EST
--- OUTSIDE RECORDS SUMMARY | 2024-10-13 15:59 | XMS_ITS ---
Author Organization [facility] Address [address] [place] [address] Care Team Providers Care Film Archivist Name Role Phone Billy DENG, Nena Primary Care Provider Unavail Lisa Wheeler Unavailable [phone] Encounters Encounter Location Date Provider Diagnosis [address] [place] [address] 09/09/2024 Lisa Dorman Plan Of Treatment Next Appt Details Provider Name:Lisa gupta, 11/26/2024 08:30:00 AM, [address] [place], [address], Progress Notes * TOÑOShasha AriasanaiDOB:1970 ( 54 yo F)Acc No.[id number]:09/09/2024 Patient:?Leila HENDERSON :1970???Age:54 Y???Sex:Female Address:[address] [place] [address], [address] * true * Date:? Generated for Palmeri collin/Asha/eTransmitting on:?10/13/2024 03:58 PM EST
--- OUTSIDE RECORDS SUMMARY | 2024-10-13 15:59 | XMS_ITS ---
Author Organization [facility] Address [address] [address] Care Team Providers Care Asbestos Removal Worker Name Role Phone Nena Cervantes Primary Care Provider CHANDRA Tuttle Unavailable [phone] REASON FOR VISIT Medical Records Encounters Encounter Location Date Provider Diagnosis [facility] [address] [address] 08/29/2024 CHANDRA SANDERSON Plan Of Treatment No Information Progress Notes * Leila HENDERSONDOB:1970 ( 54 yo F)Acc No.[id number]:08/29/2024 Patient:?Leila HENDERSON :1970???Age:54 Y???Sex:Female Phone: Address:[address] [place] [address], [phone] * true * Date:? Generated for Mariluz polanco/Asha/eTmansoorsmitting on:?10/13/2024 03:58 PM EST
--- OUTSIDE RECORDS SUMMARY | 2024-10-13 15:59 | XMS_ITS | Clinical Summary ---
Author Organization [facility] Address [address] [place] [address] Phone Care Team Providers Care Artificial Breeding Distributor Name Role Phone Nena Lynn MD Primary Care Provider + Allergies Active Allergy Reactions Criticality Noted Date Comments Food Allergy Formula 11/14/2017 Kiwi- throat swells Hydrocodone-Acetaminophen 11/14/2017 Latex Itching 11/14/2017 Throat swells Oxycodone-Acetaminophen 11/14/2017 Medications beclomethasone dipropionate (Qvar RediHaler) 80 mcg/actuation HFA aerosol breath activated inhaler TAKE 1 PUFF BY MOUTH TWICE A DAY 8 Active albuterol HFA (PROAIR HFA ; PROVENTIL HFA ; VENTOLIN HFA) 90 mcg/actuation inhaler Inhale 2 Puffs into the lungs every 4 hours as needed. Active topiramate (TOPAMAX) 25 mg tablet Take 2 Tabs by mouth 2 times daily. 7 Active cholecalciferol (VITAMIN D-3) 25 mcg (1,000 unit) tablet Take 1 Tab by mouth three times a week. Active tirzepatide, weight loss, (Zepbound) 2.5 mg/0.5 mL injectionIndicat ions:Class 3 severe obesity due to excess calories with serious comorbidity and body mass index (BMI) of 50.0 to 59.9 in adult ([facility]) Inject 0.5 mL (2.5 mg total) under the skin every 7 (seven) days. 2 mL 5 Active tirzepatide, weight loss, 5 mg/0.5 mL solution Inject 5 mg into the skin once a week. 4 025 Discontinued tirzepatide (MOUNJARO) 2.5 mg/0.5 mL injection Inject 2.5 mg into the skin once a week. 4 025 Discontinued Active Problems Problem Noted Date Diagnosed Date [...] of 50.0 to 59.9 in adult 11/14/2017 Encounters Date Type Department Care Team Description 09/24/2024 3:15 PM EST Office Visit Bariatric Surgery - [address] [place] [address] Serene Zapata, PA Class 3 severe obesity due to excess calories with serious comorbidity and body mass index (BMI) of 50.0 to 59.9 in adult (CMS/HCC) (Primary Dx); ANURAG (obstructive sleep apnea) from Last 3 Months Immunizations Name Administration Dates Next Due Hepatitis B (Nrgckbz-R-Rpkgu , Recombivax HB-Adult) 19yo and older 03/24/2009,10/23/2008,09/24/2008, [...] & Right 05/2014 OTHER SURGICAL HISTORY PROCEDURE: [place] EGD BAND LIGATION ESOPHGEAL/GASTRIC VARICES Medical History Medical History Date Comments PSVT (paroxysmal supraventri cular tachycardia) (CMS/HCC) 11/14/2017 DX:PSVT (paroxysmal supraven tricular tachycardia) ([facility]); COMMENT: 09/2017 intra/post op complication, Dr Mondragon [...] Relation Name Comments Other: Pulmonary Emboli Mother Sponge Hooker kemar DVT's Relation Name Status Comments Mother [...] on file Sexual Orientation Not on file Obstetrics History Last Filed [...] Mass Index 57.39 09/24/2024 3:21 PM EST Plan of Treatment Upcoming Encounters Date Type Department Care Team (Late st Contact Info) Description 12/23/2024 4:00 PM EDT Office Visit Bariatric Surgery - [place] 175 [facility] [address] [place] [phone] Serene Zapata PA 271 [facility] [address] [place] [address] Health Maintenance Due Date Last Done Comments Pneumococcal Vaccine: 50+ Years (1 of 2 - PCV) 1989 Pneumococcal Vaccine: Pediatrics (0 to 5 Years) and At-Risk Patients (6 to 64 Years) (1 of 2 - PCV) 1989 Cervical Cancer Screening: Pap Smear 1991 Breast Cancer Screening 09/15/2021 09/15/2019 Cholesterol Screening (Lipid Panel) 07/26/2022 Colorectal Cancer Screening: Colonoscopy 07/26/2022 Depression Screening 07/26/2022 HIV Screening 07/26/2022 Hepatitis C Screening 07/26/2022 Social Influencers of Health Screening 07/26/2022 Zoster Vaccines (2 of 2) 06/24/2024 04/29/2024 DTaP,Tdap,and Td Vaccines (5 - Td or Tdap) 08/22/2029 08/22/2019, 12/23/2008, 10/23/2008, Additional history exists MMR Vaccines Completed 12/02/1990, 05/01/1978 Hepatitis B Vaccines Completed 03/24/2009, 10/23/2008, 09/24/2008, Additional history exists Influenza Vaccine Completed 04/23/2024, , 06/26/2022, Additional history exists COVID-19 Vaccine Completed 04/29/2024, , 12/01/2021, Additional history exists HIB Vaccines Aged Out [...] patient's age to complete this topic Meningococcal B Vacine Aged Out No lo nger eligible based on patient's age to complete this topic RSV Immunization Patients Under 20 months Aged Out No longer eligible based on patient's age to complete this topic Varicella Vaccines Aged Out No longer eligible based on patient's age to complete this topic Procedures Procedure Name Priority Date/Time Associated Diagnosis Comments [facility] SCREENING DIGITAL Routine 09/15/2019 2:33 PM EST Encounter for screening mammogram for malignant neoplasm of breast from Last 3 Months or Most Recently Relevant to Health Maintenance Results * [facility] SCREENING DIGITAL (09/15/2019 2:33 PM EST) Anatomical Region Laterality Modality Mammography 09/15/2019 9:00 AM EST Narrative 09/15/2019 2:33 PM EST [facility] Diagnostic Imaging Department [address] [place], [place] [address] Patient: ??DARRELL LUNDBERGAH Vandana ?/Age/Sex: 1970 - 49 - F Unit#: ??[id number] ? Location/Status: ??SPDIMAM/REG CLI ? Mnemonic/Ordering Site: [...] (category a density) bilaterally (as calculated by Sketchfabpara software). ??There are benign calcifications bilaterally. ?? There is no suspicious group of microcalcification, no suspicious mass, architectural distortion or suspicious asymmetry. Impression: ??No evidence of malignancy. BIRADS category 2, benign findings, 3342F [address], [id number] Note: Patient information entered ??into a reminder system with a target due date for the next mammogram; PQRI II 4000Y Dictating Physician: ??JON DUFFY MD Electronically Signed by: ??JON DUFFY MD Dic Date/Time: ??09/15/19 1432 Sign date/Time: ??09/15/19 1433 Procedure Note Jon Duffy - 08/02/2022 [facility] Diagnostic Imaging Department [address] [place] [address] Patient: TOÑOLEILA D.O.B./Age/Sex: 1970 - 49 - F Unit#: [id number] Location/Status: [facility] CLI Mnemonic/Ordering Site: [facility] Ordering Physician: NENA LYNN MD [facility] Screening Digital - 09/15/19922 History: Bilateral breast cancer screening. Technique: Bilateral digital mammography. Conventional CC and MLOprojections with tomosynthesis MLO views and computer aided detection. Findings: Comparison: 05/07/2017 and multiple preceding studies dating back to11/29/2012. Breast tissue is mostly fatty replaced (category a density) bilaterally(as calculated by [employer] Volpara software). There are benigncalcifications bilaterally. There is no suspicious group of microcalcification, nosuspicious mass, architectural distortion or suspicious asymmetry. Impression: No evidence of malignancy. BIRADS category 2, benign findings, 3342F [address], [address] Note: Patient information entered into a reminder system with a targetdue date for the next mammogram; PQRI II 7025F Dictating Physician: JON DUFFY MD Electronically Signed by: JON DUFFY MD Dic Date/Time: 09/15/19 1432 Sign date/Time: 09/15/19 1433 Nena Lynn MD IMG BI PROCEDURES Final Result from Last 3 Months or Most Recently Relevant to Health Maintenance Insurance [facility] Care Teams Artificial Breeding Distributor Relationship Specialty Start Date End Date Nena Lynn MD [address] [place] [address] PCP - General Internal Medicine 08/14/17
--- OUTSIDE RECORDS SUMMARY | 2024-10-13 15:59 | XMS_ITS | Patient Health Record ---
Author Organization [facility] Address [address] [address] Care Team Providers Care Manager Emergency Department Name Role Phone Haris Cervantesanne Primary Care Provider CHANDRA Tuttle Unavailable [phone] Allergies Allergen (clinical drug ingredient) Drug/Non Drug Allergy documented on EMR Reaction Allergy Type Onset Date Status Latex Latex Unknown Allergy Active metoprolol Metoprolol Unknown Drug Allergy Activ e Kiwi Unknown Allergy Active Reason For Referral No Information Medications Medication SIG (Take, Route, Frequency, Duration) Notes Start Date End Date Status Cyclobenzaprine HCl 10 MG 1 tablet at be dtime as needed Orally Once a day Active Flovent HFA 110 mcg/inh Active Nortriptyline HCl 10 MG 1 capsule at bed time Orally Once a day Active ProAir HFA 90 mcg/inh Active Encounters Encounter Location Date Provider Diagnosis [facility] [address] [address] 08/29/2024 CHANDRA SANDERSON Plan Of Treatment No Information Medical (General) History Medical History History ICD Code asthma clear cell renal cell carcinoma supraventricular tachycardia hyperglycemia migraine obesity vitamin D deficiency Surgical History Surgery Date(Month/Year) cholecystectomy gastric band carpal tunnel release partial nephrectomy
--- OUTSIDE RECORDS SUMMARY | 2024-10-13 15:59 | XMS_ITS | Patient Health Record ---
Author Organization [facility] Address [address] [place] [address] Care Team Providers Care Receiver Bulk System Name Role Phone Nena Cervantes MD Primary Care Provider Unavail Lisa Wheeler Unavailable [phone] Reason For Referral No Information Encounters Encounter Location Date Provider Diagnosis [address] [place] [address] 09/09/2024 Lisa Dorman Plan Of Treatment Next Appt Details Provider Name:Lisa gupta, 11/26/2024 08:30:00 AM, [address] [place], [address], Insurance Providers Payer Name Payer Address Payer Phone Subscriber Number Group Number Insured Name Patient Relationship to Insured Coverage Start Date Coverage End Date Blue Benefits [address] [address] [place] [address] [id number] Leila Lundberg Self - patient is the insured
== END 2024-10-13 14:16 | disposition home or self-care (01) ==
PROVIDERS: PCP Family Medicine; Visit Provider Physician Assistant Medical
DX: R06.83 Snoring (principal); G47.9 Sleep disorder, unspecified; F41.9 Anxiety disorder, unspecified; F32.A Depression, unspecified
CPT/HCPCS: 99214

== ENCOUNTER 2024-10-23 08:47 | Outpatient (REF) | payer OTHER, SELFPAY ==
--- OUTSIDE RECORDS SUMMARY | 2024-10-23 09:34 | XMS_ITS | Encounter Summary ---
Author Organization [facility] Address [address] [place] [address] Care Team Providers Care Adhesive Bandage Making Operator Name Role Phone Nena Cervantes MD Primary Care Provider Unav ailable Encounter Details Date Type Department Care Team Description 12/10/2017 Refill Pulmonology - [place] [address] [facility] [address] [place] [address] Juan Aquino MD [address] [place] [address] Social History Tobacco Use Types Packs/Day Years Used Date Smoking Tobacco: Former Cigarettes 0 11/09/1987 - 08/10/1989 Smokeless Tobacco: Never Alcohol Use Standard Drinks/Week Comments Yes 1 (1 standard drink = 0.6 oz pur e alcohol) Sex Assigned at Date Recorded Not on file Job Start Date Occupation Industry Not on file Not on file Not on file documented as of this encounter Plan of Treatment Not on file documented as of this encounter Visit Diagnoses Not on filedocumented in this encounter Care Teams Adhesive Bandage Making Operator Relationship Specialty Start Date End Date Nena Cervantes MD PCP - General Internal Medicine 08/14/17 documented as of this encounter
--- OUTSIDE RECORDS SUMMARY | 2024-10-23 09:34 | XMS_ITS | Patient Health Record ---
Author Organization [facility] Address [address] [place] [address] Care Team Providers Care Speech Pathology Assistant Name Role Phone Nena Cervantes MD Primary Care Provider Unavail Lisa Wheeler Unavailable [phone] Reason For Referral No Information Encounters Encounter Location Date Provider Diagnosis [address] [place] [address] 09/09/2024 Lisa Dorman Plan Of Treatment Next Appt Details Provider Name:Lisa gupta, 11/26/2024 08:30:00 AM, [address] [place], [address], Insurance Providers Payer Name Payer Address Payer Phone Subscriber Number Group Number Insured Name Patient Relationship to Insured Coverage Start Date Coverage End Date Blue Benefits [address] [address] [place] [address] [id number] Leila Lundberg Self - patient is the insured
--- OUTSIDE RECORDS SUMMARY | 2024-10-23 09:34 | XMS_ITS ---
Author Organization [facility] Address [address] [place] [address] Care Team Providers Care Filtering Machine Tender Helper Name Role Phone Billy DENG, Nena Primary Care Provider Unavail Lisa Wheeler Unavailable [phone] Encounters Encounter Location Date Provider Diagnosis [address] [place] [address] 09/09/2024 Lisa Dorman Plan Of Treatment Next Appt Details Provider Name:Lisa gupta, 11/26/2024 08:30:00 AM, [address] [place], [address], Progress Notes * TOÑOShasha AriasanaiDOB:1970 ( 54 yo F)Acc No.[id number]:09/09/2024 Patient:?Leila HENDERSON :1970???Age:54 Y???Sex:Female Address:[address] [place] [address], [address] * true * Date:? Generated for Palmeri collin/Asha/eTransmitting on:?10/23/2024 09:34 AM EDT
--- OUTSIDE RECORDS SUMMARY | 2024-10-23 09:34 | XMS_ITS | Encounter Summary ---
Author Organization [facility] Address [address] [place] [address] Care Team Providers Care Failure Analysis Technician Name Role Phone Nena Cervantes MD Primary Care Provider Unav ailable Encounter Details Date Type Department Care Team Description 01/18/2018 Telephone Adult Medicine [address] [address] Dwight Benitez MD Social History Tobacco Use Types Packs/Day Years [...] on filedocumented in this encounter Care Teams Failure Analysis Technician Relationship Specialty Start Date End Date Nena Cervantes MD PCP - General Internal Medicine 08/14/17 documented as of this encounter
--- OUTSIDE RECORDS SUMMARY | 2024-10-23 09:34 | XMS_ITS | Clinical Summary ---
Author Organization [facility] Address [address] [place] [address] Care Team Providers Care Eyewear Manufacturing Supervisor Name Role Phone Nena Cervantes MD Primary Care Provider Unav ailable Allergies Active Allergy Reactions Severity Noted Date Comments Food Allergy 11/14/2017 Kiwi- throat swells Latex Itching/Pruritus 11/14/2017 Throat swells Oxycodone-Acetaminophen 11/14/2017 Hydrocodone-Acetaminophen 11/14/2017 Medications Medication Sig Dispensed Refills Start Date End Date Status topiramate (TOPAMAX) 25 MG tablet Take 2 Tabs by mouth 2 times daily. 0 08/01/2017 Active Cholecalciferol (VITAMIN D) 1000 UNITS Tab Take 1 Tab by mouth three times a week. 0 Active ALBUTEROL SULFATE 108 (90 BASE) MCG/ACT Aero Soln Inhale 2 Puffs into the lungs every 4 hours as needed. 0 Active QVAR 80 MCG/ACT inhaler TAKE 1 PUFF BY MOUTH TWICE A DAY 1 Inhaler 3 02/05/2018 Active Tirzepatide (Mounjaro) 2.5 MG/0.5ML Solution Pen-injector Inject 2.5 mg into the skin once a week. 2 mL 0 03/06/2024 Active Tirzepatide-Weight Management (Zepbound) 5 MG/0.5ML Solution Auto-injector Inject 5 mg into the skin once a week. 2 mL 0 06/06/2024 Active Active Problems Problem Noted Date PSVT (paroxysmal supraventricular tachyc ardia) 11/14/2017 Overview: 09/2017 intra/post op complication, Dr Mondragon Depression 11/14/2017 Migraine 11/14/2017 Herpes simplex type 1 infection 11/15/19 18 Vitamin D deficiency 11/14/2017 History of kidney cancer 11/14/2017 Overview: L partial nephrectomy 05/16/17; [place] History of laparoscopic adjustable gastr ic banding 11/14/2017 Class 3 severe obesity with body mass in dex (BMI) of 50.0 to 59.9 in adult 11/14/2017 Asthma 11/14/2017 Elevated urine levels of vanillylmandeli c acid (VMA) 11/14/2017 Immunizations Name Administration Dates Next Due Hepatitis B > 19yrs 03/24/2009, 9,09/24/2008, 992,11/19/1991,10/22/1991 MMR (Zxopvvq-Ioewo-Nofuogg) 12/02/1990, 8 TD (STATE SUPPLIED FOR ADULT S AND CHILDREN) 01/24/2005 Tdap 10/23/2008 Family History Medical History Relation Name Comments Pulmonary Emboli Mother Chronic DVT 's Relation Name Status Comments Mother Social History Tobacco Use Types Packs/Day Years Used Date Smoking Tobacco: Former Cigarettes 0 11/09/1987 - 08/10/1989 Smokeless Tobacco: Never Alcohol Use Standard Drinks/Week Comments Yes 1 (1 standard drink = 0.6 oz pur e alcohol) Sex Assigned at Date Recorded Not on file Job Start Date Occupation Industry Not on file Not on file Not on file Last Filed Vital Signs Vital Sign Reading Time Taken Comments Blood Pressure 143/91 04/09/2024 3:50 PM EDT Pulse 97 04/09/2024 3:50 PM EDT Temperature 36.7 ??C (98 ??F) 04/09/2024 3:50 PM EDT Respiratory Rate 14 11/08/2017 8:54 AM EDT Oxygen Saturation 98% 11/08/2017 8:54 AM EDT Inhaled Oxygen Concentration - - Weight 140.2 kg (309 lb) 05/27/2024 2:41 PM EDT Height 160 cm (5' 3 ) 04/09/2024 3:50 PM EDT Body Mass Index 54.74 04/09/2024 3:50 PM EDT Plan of Treatment Health Maintenance Due Date Last Done Comments Covid-19 Vaccine (#1) 1970 HEPATITIS C SCREENING 1988 PNEUMOCOCCAL VACCINE FOR HIG H RISK PATIENTS (#1) 1989 CHOLESTEROL SCREENING 1990 CERVICAL CANCER SCREENING 1991 BASELINE HEALTH EXAM 40-64 2010 MAMMOGRAM 2010 COLON CANCER SCREENING 2020 SHINGLES VACCINE (1 of 2) 2020 INFLUENZA (#1) 2024 06/26/2022, 06/26/2018 BMI CHECK/ADVISE 08/13/2024 04/09/2024, 12/2023, 03/06/2024, Additional history exists DTAP/TDAP/TD (4 - Td or Tdap) 08/22/2029, 12/23/2008, 10/23/2008, Additional history exists Care Teams Eyewear Manufacturing Supervisor Relationship Specialty Start Date End Date Nena Cervantes MD PCP - General Internal Medicine 08/14/17
--- OUTSIDE RECORDS SUMMARY | 2024-10-23 09:34 | XMS_ITS | Encounter Summary ---
Author Organization [facility] Address [address] [place] [address] Care Team Providers Care Embossing Unit Operator Name Role Phone Nena Cervantes MD Primary Care Provider + Reason for Referral * Medications - Closed Specialty Diagnoses / Procedures Referred By Kristen mcclelland Referred To Contact Diagnoses Class 3 severe obesity due to excess calories with serious comorbidity and body mass index (BMI) of 50.0 to 59.9 in adult ([facility]) Serene Zapata PA [address] [address] Phone: tel: fax: Referral ID Status Reason Start Date Expiration Date Visits Re quested Visits Authorized [id number] Closed 1 1 Reason for Visit * Reason Comments Follow-up 1 month Encounter Details Date Type Department Care Team (Late st Contact Info) Description 09/24/2024 3:15 PM EST Office Visit Bariatric Surgery - [place] [address] [address] Serene Zapata PA [address] [address] Class 3 severe obesity due to excess calories with serious comorbidity and body mass index (BMI) of 50.0 to 59.9 in adult (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/HCC) Vitamin D deficiency Class 3 severe obesity due to excess calories with serious comorbidity and body mass index (BMI) of50.0 to 59.9 in adult ([facility]) PAST SURGICAL HISTORY: Past Surgical History: Procedure Laterality Date CARPAL TUNNEL RELEASE Bilateral 11/2014 PROCEDURE: HISTORICAL CARPAL TUNNEL REL; COMMENT: Left 2014 & Right 05/2014 CHOLECYSTECTOMY 08/09/2017 PROCEDURE: HISTORICAL CHOLECYSTECTOMY NEPHRECTOMY Left 05/2017 PROCEDURE: HISTORICAL NEPHRECTOMY; COMMENT: Partial Nephrectomy- Renal Cell Cancer OTHER SURGICAL HISTORY PROCEDURE: DC EGD BAND LIGATION ESOPHGEAL/GASTRIC VARICES SOCIAL HISTORY: [...] as well They should consult with their BALLET PROFESSOR in regard to control during this timeframe Medication and lab orders: No orders of the defined types were placed in this encounter. Other orders: None cc: Nena Cervantes MD documented in this encounter Plan of Treatment Upcoming Encounters Date Type Department Care Team (Late st Contact Info) Description 12/23/2024 4:00 PM EDT Office Visit Bariatric Surgery - [place] [facility] [address] [place] [address] Serene Zapata PA 271 [facility] [address] [place] [address] documented as of this encounter Visit Diagnoses Diagnosis Class 3 severe obesity due to excess calories with serious comorbidity and body mass index (BMI) of 50.0 to 59.9 in adult ([facility])- Primary ANURAG (obstructive sleep apnea) Obstructive sleep [...] documented as of this encounter Care Teams Embossing Unit Operator Relationship Specialty Start Date End Date Nena Cervantes MD [address] [place] [address] PCP - General Internal Medicine 08/14/17 documented as of this encounter
--- OUTSIDE RECORDS SUMMARY | 2024-10-23 09:34 | XMS_ITS | Encounter Summary ---
Author Organization [facility] Address [address] [place] [address] Care Team Providers Care Assembly Department Supervisor Name Role Phone Nena Cervantes MD Primary Care Provider Unav ailable Encounter Details Date Type Department Care Team Description 04/21/2024 Pt. Non Urgent Medical Question Bariatric Surgery - [place] 175 [facility] [address] [place] [address] Serene Zapata PA-C 271 [facility] [address] [place] [address] Social History Tobacco Use Types Packs/Day Years [...] on filedocumented in this encounter Care Teams Assembly Department Supervisor Relationship Specialty Start Date End Date Nena Cervantes MD PCP - General Internal Medicine 08/14/17 documented as of this encounter
--- OUTSIDE RECORDS SUMMARY | 2024-10-23 09:35 | XMS_ITS | Encounter Summary ---
Author Organization [facility] Address [address] [place] [address] Care Team Providers Care Gasoline Dragline Operator Name Role Phone Nena Cervantes MD Primary Care Provider Unav ailable Encounter Details Date Type Department Care Team Description 08/22/2017 Orders Only Medical Records [address] [place] [address] Herbert Reece MD [address] [place] [address] Social History Tobacco Use Types Packs/Day Years Used Date Smoking Tobacco: Never Assessed Sex Assigned at Date Recorded Not on file Job Start Date Occupation Industry Not on file Not on file Not on file documented as of this encounter Plan of Treatment Not on file documented as of this encounter Procedures Procedure Name Priority Date/Time Associated Diagnosis Comments OUTSIDE PATHOLOGY Routine 08/09/2017 documented in this encounter Results * OUTSIDE PATHOLOGY (08/09/2017) Herbert Reece MD OUTSIDE LAB documented in this encounter Visit Diagnoses Not on filedocumented in this encounter Care Teams Gasoline Dragline Operator Relationship Specialty Start Date End Date Nena Cervantes MD PCP - General Internal Medicine 08/14/17 documented as of this encounter
--- OUTSIDE RECORDS SUMMARY | 2024-10-23 09:35 | XMS_ITS | Encounter Summary ---
Author Organization [facility] Address [address] [place] [address] Care Team Providers Care Early Head Start Director Name Role Phone Nena Cervantes MD Primary Care Provider Unav ailable Encounter Details Date Type Department Care Team Description 08/20/2017 Release of Information Medical Records [address] [place] [address] Abstract, Provider Social History Tobacco Use Types Packs/Day Years Used Date Smoking Tobacco: Never Assessed Sex Assigned at Date Recorded Not on file Job Start Date Occupation Industry Not on file Not on file Not on file documented as of this encounter Plan of Treatment Not on file documented as of this encounter Visit Diagnoses Not on filedocumented in this encounter Care Teams Early Head Start Director Relationship Specialty Start Date End Date Nena Cervantes MD PCP - General Internal Medicine 08/14/17 documented as of this encounter
--- OUTSIDE RECORDS SUMMARY | 2024-10-23 09:35 | XMS_ITS | Clinical Summary ---
Author Organization [facility] Address [address] [place] [address] Phone Care Team Providers Care Neon Tube Pumper Name Role Phone Nena Lynn MD Primary [...] (BMI) of 50.0 to 59.9 in adult ([facility]) Inject 0.5 mL (2.5 mg total) under [...] PM EST Office Visit Bariatric Surgery - [address] [place] [address] Serene Zapata, PA Class 3 severe obesity due to excess calories with serious comorbidity and body mass index (BMI) of 50.0 to 59.9 in adult (CMS/HCC) (Primary Dx); ANURAG (obstructive sleep apnea) from Last 3 Months Immunizations Name Administration Dates Next Due Hepatitis B (Ntivgcd-J-Eeysn , Recombivax HB-Adult) 19yo and older 03/24/2009,10/23/2008,09/24/2008, [...] & Right 05/2014 OTHER SURGICAL HISTORY PROCEDURE: [place] EGD BAND LIGATION ESOPHGEAL/GASTRIC VARICES Medical History Medical History Date Comments PSVT (paroxysmal supraventri cular tachycardia) (CMS/HCC) 11/14/2017 DX:PSVT (paroxysmal supraven tricular tachycardia) ([facility]); COMMENT: 09/2017 intra/post op complication, Dr Mondragon [...] Relation Name Comments Other: Pulmonary Emboli Mother Chef & Owner kemar DVT's Relation Name Status Comments Mother [...] PM EDT Office Visit Bariatric Surgery - [place] 175 [facility] [address] [place] [phone] Serene Zapata PA 271 [facility] [place] [address] [place] [address] Health Maintenance Due Date Last Done Comments [...] Procedure Name Priority Date/Time Associated Diagnosis Comments [facility] SCREENING DIGITAL Routine 09/15/2019 2:33 PM EST Encounter for screening mammogram for malignant neoplasm of breast from Last 3 Months or Most Recently Relevant to Health Maintenance Results * [facility] SCREENING DIGITAL (09/15/2019 2:33 PM EST) Anatomical Region Laterality Modality Mammography 09/15/2019 9:00 AM EST Narrative 09/15/2019 2:33 PM EST [facility] Diagnostic Imaging Department [address] [place], [place] [id number] Patient: ??DARRELL LUNDBERGAH Vandana ?/Age/Sex: 1970 - 49 - F Unit#: ??[id number] ? Location/Status: ??SPDIMAM/REG CLI ? Mnemonic/Ordering Site: [...] (category a density) bilaterally (as calculated by [employer]Speakpara software). ??There are benign calcifications bilaterally. ?? There is no suspicious group of microcalcification, no suspicious mass, architectural distortion or suspicious asymmetry. Impression: ??No evidence of malignancy. BIRADS category 2, benign findings, 3342F [address], [address] Note: Patient information entered ??into a reminder system with a target due date for the next mammogram; PQRI II 2657F Dictating Physician: ??JON DUFFY MD Electronically Signed by: ??JON DUFFY MD Dic Date/Time: ??09/15/19 1432 Sign date/Time: ??09/15/19 1433 Procedure Note Jon Duffy - 08/02/2022 [facility] Diagnostic Imaging Department [address] [place] [address] Patient: TOÑOLEILA D.O.B./Age/Sex: 1970 - 49 - F Unit#: [id number] Location/Status: [facility] CLI Mnemonic/Ordering Site: [facility] Ordering Physician: NENA LYNN MD [facility] Screening Digital - 09/15/19922 History: Bilateral breast cancer screening. Technique: Bilateral digital mammography. Conventional CC and MLOprojections with tomosynthesis MLO views and computer aided detection. Findings: Comparison: 05/07/2017 and multiple preceding studies dating back to11/29/2012. Breast tissue is mostly fatty replaced (category a density) bilaterally(as calculated by [employer] Volpara software). There are benigncalcifications bilaterally. There is no suspicious group of microcalcification, nosuspicious mass, architectural distortion or suspicious asymmetry. Impression: No evidence of malignancy. BIRADS category 2, benign findings, 3342F [address], [address] Note: Patient information entered into a reminder system with a targetdue date for the next mammogram; PQRI II 7025F Dictating Physician: JON DUFFY MD Electronically Signed by: JON DUFFY MD Dic Date/Time: 09/15/19 1432 Sign date/Time: 09/15/19 1433 Nena Lynn MD IMG BI PROCEDURES Final Result from Last 3 Months or Most Recently Relevant to Health Maintenance Insurance [facility] Care Teams Neon Tube Pumper Relationship Specialty Start Date End Date Nena Lynn MD [address] [place] [address] PCP - General Internal Medicine 08/14/17
[2024-10-23 09:41] LABS: Hematocrit 43.9 % (37.0-47.0); Hemoglobin 14.4 g/dl (12.0-16.0); Mean Corpuscular HGB Conc 32.8 g/dl (31.0-35.0); Mean Corpuscular Hemoglobin 28.7 pg (27.0-33.0); Mean Corpuscular Volume 87.5 fL (80.0-98.0); Mean Platelet Volume 9.3 fL (9.4-12.3); Platelet Count 264 X10*3/uL (160-400); Red Blood Count 5.02 X10*6/uL (4.20-5.50); Red Cell Distribution Width 13.6 % (11.0-16.0); White Blood Count 8.1 X10*3/uL (4.8-10.8)
[2024-10-23 09:47] LABS: Estimated Average Glucose 137 mg/dL; Hemoglobin A1c % 6.4 % (<6.0); Total Hemoglobin (HGBA1C) 3714.0618 umol/L
[2024-10-23 10:20] LABS: Alanine Aminotransferase 15 U/L (0-31); Albumin Level 3.9 g/dL (3.5-5.0); Alkaline Phosphatase 76 U/L (39-117); Anion Gap 11 (12-20); Aspartate Amino Transferase 29 U/L (5-31); Bilirubin Total 0.5 mg/dL (0.0-1.0); Blood Urea Nitrogen 23 mg/dL (9-16); Calcium 9.6 mg/dL (8.4-10.2); Carbon Dioxide 26 mmol/L (22-29); Chloride 109 mmol/L (96-108); Estimated Glomerular Filt Rate > 60; Glucose Random 132 mg/dL (60-115); Iron 86 mcg/dL (30-160); Percent Iron Saturation 31 % (15-50); Sodium 141 mmol/L (135-145); Total Iron Binding Capacity 276 mcg/dL (228-428); Total Protein 7.6 g/dL (6.5-8.0); Unsaturated Iron Binding 190 ug/dL
[2024-10-23 10:22] LABS: TSH reflex Free T4 1.41 uIU/mL (0.32-4.0); Vitamin D 25-OH Total 32.1 ng/mL (>30)
[2024-10-23 10:43] LABS: Vitamin B12 630 pg/mL (200-900)
[2024-10-24 15:43] LABS: Homocysteine 7.9 umol/L (<10.4)
[2024-10-28 02:38] LABS: Methylmalonic Acid 123 nmol/L (55-335)
== END 2024-10-23 08:48 | disposition home or self-care (01) ==
LOC: HO.LAB 08:47
PROVIDERS: PCP Family Medicine; Visit Provider Physician Assistant Medical
DX: G47.9 Sleep disorder, unspecified (principal); R06.83 Snoring; R53.83 Other fatigue; F09 Unspecified mental disorder due to known physiological condition; Z13.1 Encounter for screening for diabetes mellitus
CPT/HCPCS: 36415; 80053; 82306; 82607; 82746; 83036; 83090; 83540; 83921; 84443; 85027

== ENCOUNTER 2025-01-13 15:19 | Outpatient (AMB) | payer OTHER, SELFPAY ==
--- NOTE | 2025-01-13 15:24 | MHC.OFFVIS ---
Vital Signs 01/13/25 15:27 Height 5 ft 3 in Weight 325 lb 8 oz BMI 57.7 BP 136/74 Blood Pressure Location Lt brachial Position Sitting Pulse 89 Pulse Source Pulse Oximeter Pulse Oximetry (%) 96 Oxygen Delivery Method Room Air Intake Visit Reasons: 3 mnts f/u Intake Note: Patient presents follow up Sleep. Labs in chart. Compliance in chart(69/90days,, >=4hrs 62%, Average usage 4hrs 11 min, Med pressure-9.9, AHI- 1.6). Refills now going to [facility]. Allergies amlodipine [From [facility]] Allergy (Intermediate, Verified 01/13/25 15:32) Swelling Latex, Natural Rubber Allergy (Intermediate, Verified 01/13/25 15:32) Difficulty Breathing,itching kiwi Allergy (Unknown, Verified 01/13/25 15:32) Itching metoprolol Adverse Reaction (Verified 01/13/25 15:32) Unknown HPI Comments Details: 54 year old female with insomnia and weight difficulties referred to us for sleep evaluation. ANURAG Compliance report 10/2024 - 12/2024 Total avg use 69/90 days and Avg use is 4 hours and 11 min Med press [id number] Leaks variable AHI is 1. 6/hr She is still waking up to pee 2-3 times a night, however feels more rested and clearer mentally, her brain fog has significantly decreased. She has difficulty sleeping and staying asleep since childhood. The snoring has decreased. Bedtime is 9pm, wakes up at 5am, gets up twice for the bathroom or more, however energy levels are improving as she is in the gym 3-5 x a week now, starting a good walking routine as tolerable. Now due to her asthma and allergies, she gets winded and takes her albuterol as needed for environmentally induced asthma. She takes Ibuprofen 600mg PRN for arthritic pain. She also started taking turmeric shots. She has trouble walking due to an old L. knee injury and arthritis. Denies migraines, photophobia, phonophobia, vertigo, dizziness. She plans to go back to weight management, she is motivated to lose weight, but not ready for a surgical procedure just yet. Her feet swell up with fluid when standing and at night, blood sugar is still elevated and she is not able to manage it well. She feels emotionally overwhelmed since she has a lot going on in her life, and we discussed finding a good therapist to help manage her ongoing weight difficulties which lead to mood fluctuations. 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 She continues to have nocturia, swelling of the feet bilaterally, fasting blood sugars elevated, and daily headaches that go away with meals. She washes her mask, tubing, changes her filters and fills reservoir with water as needed. 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 Sexual orientation: Straight/Heterosexual Gender identity: Female Physical Exam Vital Signs: Last Vital Signs Pulse 89 01/13/25 15:27 BP 136/74 01/13/25 15:27 Pulse Ox 96 01/13/25 15:27 Oxygen Delivery Method Room Air 01/13/25 15:27 BMI result Body Mass Index 57.7 Const General: cooperative, comfortable and no acute distress Nutritional Appearance: obese Orientation/consciousness: patient oriented x3 HEENT Face and sinus: Yes normal facial exam and Yes face symmetric Throat: Yes other ([place] score of 3) Eyes Pupils: Equal, round and reactive pupils present Neck Neck: Yes full ROM and Yes supple Resp Effort & Inspection: normal respiratory effort and able to speak in complete sentences Neuro General: patient oriented x3 and moves all extremities Cranial nerves: Yes Facial sensation intact/muscles of mastication intact, Yes Equal, round and reactive pupils present, Yes Normal accommodation reflex present, Yes Bilaterally intact EOM present, Yes Nystagmus not present, Yes Normal facial strength present, Yes Midline tongue present, Yes Symmetric palate elevation present, Yes Ability to bilaterally rotate head present and Yes Ability to bilaterally elevate shoulders present Motor exam (neuro): 5/5 motor strength present throughout and Normal motor muscle tone present throughout Assessment & Plan Assessment & Plan (1) Abnormal blood sugar: Code(s): R73.09 - Other abnormal glucose Category: Medical (2) ANURAG (obstructive sleep apnea): Code(s): G47.33 - Obstructive sleep apnea (adult) (pediatric) Category: Medical (3) Nocturia more than twice per night: Code(s): R35.1 - Nocturia Category: Medical (4) Snoring: Comment: Home Sleep Study equipment pick 10/15/2024 Code(s): R06.83 - Snoring Category: Medical (5) Difficulty sleeping: Code(s): G47.9 - Sleep disorder, unspecified Category: Medical (6) Anxiety and depression: Code(s): F41.9 - Anxiety disorder, unspecified; F32.A - Depression, unspecified Category: Medical Plan ANURAG continue cpap use and >4 hours nightly. Reviewed labs w/ pt. today she is borderline diabetic, refer to endocrine. Anxiety continue Zoloft 25mg PO daily at bedtime for 12 weeks. Nocturia decrease fluids 2 hours prior to bedtime. Follow up in 6 months. Orders: Referrals Endocrinology Referral R73.09 - Other abnormal glucose Patient Instructions: Sleep Hygiene provided: set a scheduled bedtime and wake time to help regulate the circadian rhythm and balance the release of pituitary hormones. Sleep in a dark room, temperatures below 68 degrees, and no devices n bed. Limit caffeinated products 6 hours prior to bed, and limit fluids 2-4 hours prior to bed. Gentle night yoga, diffusing essential oils, and playing soft music can be relaxing. Coding Level of Care Code Est Pt Level 4 (34340) Diagnoses Abnormal blood sugar R73.09 ANURAG (obstructive sleep apnea) G47.33 Nocturia more than twice per night R35.1 Snoring R06.83 Difficulty sleeping G47.9 Anxiety and depression F41.9; F32.A Time Spent (min) 25 Comment improving
[2025-01-13 15:27] VITALS: BP 136/74; PULSE 89; O2SAT 96; BMI 57.7
--- OUTSIDE RECORDS SUMMARY | 2025-01-13 16:48 | XMS_ITS | Patient Health Record ---
Author Organization [facility] Address [address] [address] Care Team Providers Care Attendant Campground Name Role Phone Haris Cervantesanne Primary Care Provider CHANDRA Tuttle Unavailable [phone] Allergies Allergen (clinical drug ingredient) Drug/Non Drug [...] Active Encounters Encounter Location Date Provider Diagnosis [facility] [address] [address] 08/29/2024 CHANDRA SANDERSON Plan Of Treatment No Information Medical (General) History Medical History History ICD Code asthma clear cell renal cell carcinoma supraventricular tachycardia hyperglycemia migraine obesity vitamin D deficiency Surgical History Surgery Date(Month/Year) cholecystectomy gastric band carpal tunnel release partial nephrectomy
== END 2025-01-13 16:15 | disposition home or self-care (01) ==
LOC: HO.HSMS 15:19
PROVIDERS: PCP Family Medicine; Visit Provider Physician Assistant Medical
DX: R73.09 Other abnormal glucose (principal); G47.33 Obstructive sleep apnea (adult) (pediatric); R35.1 Nocturia; R06.83 Snoring; G47.9 Sleep disorder, unspecified; F41.9 Anxiety disorder, unspecified; F32.A Depression, unspecified
CPT/HCPCS: 99214

== ENCOUNTER → 2025-01-13 15:19 | Outpatient (BNVA) | payer OTHER, SELFPAY | PROVIDERS: PCP Family Medicine; Visit Provider Physician Assistant Medical ==

== ENCOUNTER 2025-05-13 13:26 | Outpatient (AMB) | payer OTHER, SELFPAY ==
--- NOTE | 2025-05-13 13:29 | A.OFFVIS_ITS ---
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 States her thumb started to lock about 1 month ago. States this is becoming painful and bothersome. States she is interested in injections. Hx of left trigger thumb injection 10 years. Hx of bilateral CTS and O.A in hands. 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 She complains of ~1 month painful locking & catching of her left thumb. She has a Hx of a trigger thumb injection in ~2014, which gave her relief. She complains of numbness in the fingers of the left hand. She says most of her numbness is in her middle & ring fingers. Symptoms intermittent, but daily, with some tingling today in clinic. She has known left carpal tunnel syndrome. She has a Hx of bilateral carpal tunnel release in ~7057-2032. She says her sensation was normal following surgery. 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 Sexual orientation: Straight/Heterosexual Gender identity: Female Review of Systems Const All systems reviewed & are unremarkable except as noted in HPI and below Physical Exam Vital Signs: BMI result Body Mass Index 57.6 Const General: cooperative, healthy appearing and no acute distress Orientation/consciousness: patient oriented x3 HEENT Head: Yes normocephalic and Yes atraumatic Eyes EOM: EOMs intact bilaterally Resp Effort & Inspection: normal respiratory effort and able to speak in complete sentences Cardio Jugular venous distension: no JVD Skin General skin exam: turgor normal Rashes: no rashes Neuro General: patient oriented x3 Extrem Other: Evaluation of Left Upper Extremity: The patient is alert, oriented, and in no acute distress Neuro: Decreased subjective sensation in the index, middle, & ring fingers today in clinic. Normal sensation to all other digits Vascular: Cap refill brisk ROM: She can make a fist and extend all her digits Visible & palpable locking & catching of the thumb Tender over the thumb a1 bc Skin: No lacerations or abrasions. General: No Ecchymosis. No Erythema or evidence of infection. Nerve Conduction study IMPRESSION: 1. This is an abnormal study. 2. There is electrodiagnostic evidence for left moderate-severe median neuropathy at the wrist, consistent with carpal tunnel syndrome. 3. There is no electrodiagnostic evidence for ulnar neuropathy, brachial plexopathy, or cervical radiculopathy. Thank you for your kind referral. Renata Jean Baptiste MD, GENE Board Certified, [place] Board [employer] and Rehabilitation (ABPMR) Board Certified, [place] Board of Electrodiagnostic Medicine (ABEM) 12/28/23 Psych Appearance: grossly normal Affect: normal affect Attitude: cooperative Assessment & Plan Assessment & Plan (1) Trigger thumb, left thumb: Code(s): M65.312 - Trigger thumb, left thumb Category: Medical (2) Carpal tunnel syndrome on left: Code(s): G56.02 - Carpal tunnel syndrome, left upper limb Category: Medical Plan Assessment & Plan: 1. Left trigger thumb 2. Left recurrent carpal tunnel syndrome, moderate-severe HX of Carpal tunnel release, DOS: ~2014 Decreased subjective sensation to the index, middle, and ring fingers I educated her about these conditions I discussed operative and non-operative treatment options The patient would like to proceed with surgery The risks and benefits of operative treatment were discussed with the patient and the patient wishes to proceed with surgery. These risks include, but are not limited to risk of damage to blood vessels, nerves, tendons, infection, recurrence, incomplete relief of preoperative symptoms, persistent pain, possible need for further surgery and the risks associated with regional blocks and anesthesia. The plan is to take the patient to the operating room sometime in the next few weeks for the following procedures: 1. Left trigger thumb release, under local 2. Left REPEAT carpal tunnel release, under local All of the preoperative paperwork including the consent was reviewed today. All the patient's questions were answered. The patient understands that they will be contacted by our dining room host soon to schedule this procedure She denies Diabetes, blood thinners, asthma, heart, lung, kidney issues She says she is on Metformin for weight loss, ordered by the [employer] program. She has no Dx of Diabetes 3. History of right carpal tunnel syndrome, S/P release DOS: ~2013 Normal sensation today in clinic Scribed for Jennifer Louis MD by Tommie Short, biomedical specialist, on 05/13/25 at 1:40 PM, EST. Coding Level of Care Code Est Pt Level 4 (25165) Diagnoses Trigger thumb, left thumb M65.312 Carpal tunnel syndrome on left G56.02
[2025-05-13 13:30] VITALS: BMI 57.6
--- OUTSIDE RECORDS SUMMARY | 2025-05-13 14:39 | XMS_ITS | Encounter Summary ---
Author Organization [facility] Address [address] [place] [id number] Phone Care Team Providers Care Explosives Handler Name Role Phone Nena Cervantes MD Primary Care Provider + Encounter Details Date Type Department Care Team (Late st Contact Info) Description 12/07/2022 Procedure Pass [facility] Endoscopy Admitting Dept Virtual Department [address] [place], [place] [id number] Social History Tobacco Use Types Packs/Day Years Used Date Smoking Tobacco: Never Assessed Education Answer Date Recorded Are you interested in more education? Not on sulma e 12/07/2022 Are you concerned about learning? Not on file 12/07/2022 No 12/07/2022 No 12/07/2022 Comments Unknown Sex and Gender Information Value Date Recorded Sex Assigned at Not on file Legal Sex Female 12:23 PM EST Gender Identity Not on file Sexual Orientation Not on file documented as of this encounter Plan of Treatment Not on file documented as of this encounter Visit Diagnoses Not on filedocumented in this encounter Care Teams Explosives Handler Relationship Specialty Start Date End Date Nena Cervantes MD [email or web address] PCP - General Family Medicine 09/18/22 documented as of this encounter Additional Source Comments The information contained in this document represents components of the legal health record. It is not the complete legal health record.[facility]
--- OUTSIDE RECORDS SUMMARY | 2025-05-13 14:40 | XMS_ITS | Encounter Summary ---
Author Organization [facility] Address [address] [facility] [address] [place] [phone] Phone Care Team Providers Care Shaft Headman Name Role Phone Nena Cervantes MD Primary Care Provider + Encounter Details Date Type Department Care Team (Late st Contact Info) Description 02/20/2024 Procedure Pass [facility] Endoscopy Admitting Dept Virtual Department [address] [place], [place] [phone] Social History Tobacco Use Types Packs/Day Years Used Date Smoking Tobacco: Never Smokeless Tobacco: Never Alcohol Use Standard Drinks/Week Comments Yes 0 (1 standard drink = 0.6 oz pur e alcohol) 1 weekly Education Answer Date Recorded Are you interested in more education? Not on sulma e 12/07/2022 Are you concerned about learning? Not on file 12/07/2022 No 12/07/2022 No 12/07/2022 Digital Access Answer Date Recorded No 01/09/2023 No 01/09/2023 Reliable internet access at home? Not on file 01/09/2023 Device with a working camera? Not on file Intimate Partner Violence Answer Date R ecorded Are you denied basic needs s uch as food, clothing, or medical care? No 02/20/2024 In the past 12 months have y ou been in a relationship with a person who hurts, threatens, or tries to control you? No 02/20/2024 Are you denied basic needs s uch as food, clothing, or medical care? No 02/20/2024 In the past 12 months have y ou been in a relationship with a person who hurts, threatens, or tries to control you? No 02/20/2024 Comments No Sex and Gender Information Value Date Recorded Sex Assigned at Not on file Legal Sex Female 12:23 PM EST Gender Identity Not on file Sexual Orientation Not on file documented as of this encounter Plan of Treatment Not on file documented as of this encounter Visit Diagnoses Not on filedocumented in this encounter Care Teams Shaft Headman Relationship Specialty Start Date End Date Nena Cervantes MD [email or web address] PCP - General Family Medicine 09/18/22 documented as of this encounter Additional Source Comments The information contained in this document represents components of the legal health record. It is not the complete legal health record.[facility]
--- OUTSIDE RECORDS SUMMARY | 2025-05-13 14:40 | XMS_ITS | Clinical Summary ---
Author Organization [facility] Address [address] [facility] [address] [place] [address] Phone Care Team Providers Care Local Tanker Truck Driver Name Role Phone Nena Cervantes MD Primary Care Provider + Allergies Active Allergy Reactions Criticality Noted Date Comments Kiwi 02/19/2024 Throat itchy Latex Rash Low 02/19/2024 Medications albuterol 90 mcg/actuation inhaler Inhale 2 puffs into the lungs every 6 (six) hours as needed for wheezing. Active sertraline (ZOLOFT) 25 MG tablet Take 25 mg by mouth daily. Active omeprazole (PRILOSEC) 20 MG capsule Take 20 mg by mouth daily. Active Social History Tobacco Use Types Packs/Day Years Used Date Smoking Tobacco: Never Smokeless Tobacco: Never Tobacco Cessation:Counseling Given: Not Answered Alcohol Use Standard Drinks/Week Comments Yes 0 [...] on file Sexual Orientation Not on file Last Filed Vital Signs Vital Sign Reading Time Taken Comments Blood Pressure 131/73 02/20/2024 12:10 PM EDT Pulse 72 02/20/2024 12:10 PM EDT Temperature 36.3 C (97.3 F) 02/20/2024 11:56 AM EDT Respiratory Rate 22 02/20/2024 12:10 PM EDT Oxygen Saturation 95% 02/20/2024 12:10 PM EDT Inhaled Oxygen Concentration - - Weight 144.2 kg (318 lb) 02/19/2024 8:47 AM EDT Height 162.6 cm (5' 4 ) 12/06/2022 11:35 AM EDT Body Mass Index 54.58 12/06/2022 11:35 AM EDT Plan of Treatment Health Maintenance Due Date Last Done Comments LIPID PANEL 1970 DEPRESSION SCREENING 1982 HEPATITIS C SCREENING 1988 HIV ONE-TIME SCREENING (18-65 YEARS) 1988 SCREENING FOR DIABETES 2005 MAMMOGRAM 2010 COLOGUARD 2015 FIT TEST 2015 FOBT 2015 SIGMOIDOSCOPY 2015 VIRTUAL COLONOSCOPY 2015 PNEUMOCOCCAL VACCINES (50+ years) (1 of 1 - PCV) 2020 ZOSTER VACCINES (1 of 2) 2020 INFLUENZA VACCINE (#1) 2025 , 06/26/2022, 06/02/2021, Additional history exists COVID-19 VACCINE ( season) 2025 06/26/2022, 12/01/2021, 06/02/2021, Additional history exists PAP SMEAR 09/14/2025 09/14/2022 Adult Td,Tdap Booster 08/22/2029 08/22/2019 , 12/23/2008, 10/23/2008, Additional history exists COLONOSCOPY 02/19/2034 02/20/2024 COLORECTAL CANCER SCREENING 02/19/2034 SMOKING STATUS SCREENING (Once After 26 Yrs) Completed 02/20/2024 HEPATITIS A VACCINES Aged Out No long er eligible based on patient's age to complete this topic HIB VACCINES Aged Out No longer eligi ble based on patient's age to complete this topic MENINGOCOCCAL VACCINES (ACWY) Aged Out No longer eligible based on patient's age to complete this topic MENINGOCOCCAL VACCINES (B) Aged Out N o longer eligible based on patient's age to complete this topic Medical Devices Not on file Procedures Procedure Name Priority Date/Time Associated Diagnosis Comments ENDOSCOPY, COLON 02/20/2024 11:3 3 AM EDT PAP TEST Routine 09/14/2022 12:00 AM EST from Last 3 Months or Most Recently Relevant to Health Maintenance Results * ENDOSCOPY, COLON (02/20/2024 11:33 AM EDT) Narrative Transcriptions Kimo oV MD - 02/20/2024 11:33 AM EDT [facility] Patient Name: Leila Lundberg Attending MD:: KIMO VO MD, , Procedure Date: 02/20/2024 11:33 AM Date of : 1970 Age: 53 Admit Type: Outpatient Gender: Female Room: [facility] 02 Referring MD: Nena Cervantes MD Exam Type: Colonoscopy Indications: Screening for colorectal malignant neoplasm Medications: Monitored Anesthesia Care Procedure: Informed consent was obtained from the patientafter discussion of the indications, limitations, alternatives, benefits, and risks of the procedure. Risks specifically discussed include but are not limited to medication reactions, missed lesions, bleeding, perforation, or the need for emergent surgery. Throughout the procedure, the patient's blood pressure, pulse, end-tidal CO2, and oxygensaturations were monitored continuously. The Olympus adult variable colonoscope [id number] #2 was introduced through the anus and advanced to the cecum, identified by appendiceal orifice andileocecal valve. The colonoscopy was performed without difficulty. The patient tolerated the procedurewell. The quality of the bowel preparation was excellent. The quality of the bowel preparation was evaluated using the BBPS ([place] Bowel Preparation Scale)with scores of: Right Colon = 3, Transverse Colon = 3and Left Colon = 3 (entire mucosa seen well with no residual staining, small fragments of stool oropaque liquid). The total BBPS score equals 9. Anatomical landmarks were photographed. Complications: No immediate complications. Estimated blood loss:None. Findings: The perianal and digital rectal examinations were normal. Internal hemorrhoids were found duringretroflexion. The hemorrhoids were mild. The exam was otherwise normal throughout theexamined colon. Impression: - Internal hemorrhoids. - No specimens collected. Recommendation: - Discharge patient to home. - Repeat colonoscopy in 10 years for screening purposes. KIMO VO MD, 02/20/2024 11:54:26 AM This report has been signed electronically. Number of Addenda: 0 Note Initiated On: 02/20/2024 11:33 AM Procedure Code(s): --- Professional --- 61403, Colonoscopy, flexible; diagnostic, including collection of specimen(s) by brushing or washing, when performed (separateprocedure) --- Technical --- 73826, Colonoscopy, flexible; diagnostic, including collection of specimen(s) by brushing or washing, when performed (separateprocedure) Diagnosis Code(s): --- Professional --- Z12.11, Encounter for screening for malignantneoplasm of colon K64.8, Other hemorrhoids --- Technical --- Z12.11, Encounter for screening for malignantneoplasm of colon K64.8, Other hemorrhoids CPT copyright 2021 [employer]. All rights reserved. The codes documented in this report are preliminary and upon cycle touring guide reviewmay be revised to meet current compliance requirements. Procedure Date: 02/20/2024 11:33:[address] [place] [address] Nena Cervantes MD GI PROCEDURE ORDERABLES Final Result * Pap Test (09/14/2022 12:00 AM EST) 09/14/2022 09/15/2022 8:3 0 AM EST Narrative SEE NARRATIVE - 09/21/2022 12:33 PM EST [address] [address] Breaker Operator: Lisa Park MD HYDROELECTRIC PLANT ELECTRICAL ENGINEER Cytology Report FINAL DIAGNOSIS A. PAP SMEAR (SUREPATH) CE: SPECIMEN ADEQUACY: Satisfactory for evaluation; transformation zone present. INTERPRETATION: NEGATIVE FOR INTRAEPITHELIAL LESION OR MALIGNANCY. Endometrial cells are present in a woman 45 years of age or older. Coccobacilli consistent with shift in steve Electronically Signed Out By: ADDIE George MD(ASCP) By his/her signature above, the pathologist listed as making the Final Diagnosis certifies that he/she has personally reviewed this case and confirmed or corrected the diagnosis. The Pap test is a screening test primarily for squamous cancers and precursors and has associated false-negative and false-positive results. New technologies such as liquid-based preparations may decrease but will not eliminate all false-negative results. Regular sampling and follow-up of unexplained clinical signs and symptoms are recommended to minimize false negative results. PROCEDURES/ADDENDA HPV Testing (Requested) Ordered Date: 09/15/2022 A. PAP SMEAR (SUREPATH) CE: Human Papilloma Virus Test NEGATIVE for high-risk Human Papilloma Virus types 16, 18, 45 and the Other high risk probe set (Includes 31, 33, 35, 39, 51, 52, 56, 58, 59, 66, 68) Note: Testing performed by iPointer HR-HPV analysis. Clinical correlation is advised. This HPV test was performed at [facility], [address] [place] [address]. This test has been FDA approved for SurePath cervical cytology specimens. The accuracy and precision of this test for all other specimen sources has been verified in the Cytopathology Laboratory of the [facility] and has not been cleared or approved by the U.S. Food and Drug Administration. Clinical correlation is advised. CLINICAL HISTORY Date of Last Menstrual Period: Not Provided Menstrual History: Post Menopausal Other Clinical Conditions: Screening Pap SPECIMEN SOURCE A: PAP SMEAR (SUREPATH) CE Patient Name: LEILA LUNDBERG : 1970 (Age: 52) Sex: F Institution: [facility] Location: [facility] Date of Collection: 09/14/2022 Date of Reported: 09/21/2022 12:33 Results to: Nena Cervantes MD Nena Cervantes MD CYTOLOGY ORDERABLES Moni valentin Result SEE NARRATIVE from Last 3 Months or Most Recently Relevant to Health Maintenance Insurance [employer] ? BENEFITS ADMINISTRATORS ? BENEFITS ADMINISTRATORS ? BENEFITS ADMINISTRATORS [place] [employer] [place] [employer] Care Teams Local Tanker Truck Driver Relationship Specialty Start Date End Date Nena Cervantes MD [email or web address] PCP - General Family Medicine 09/18/22 Additional Source Comments The information contained in this document represents components of the legal health record. It is not the complete legal health record.[facility]
--- OUTSIDE RECORDS SUMMARY | 2025-05-13 14:40 | XMS_ITS | Clinical Summary ---
Author Organization [facility] Address [address] [place] [address] Phone Care Team Providers Care Grants And Contracts Assistant Name Role Phone Nena Lynn MD Primary [...] tirzepatide, weight loss, (Zepbound) 2.5 mg/0.5 mL injectionIndicati ons:Class 3 severe obesity due to excess calories with serious comorbidity and body mass index (BMI) of 50.0 to 59.9 in adult (CMS/HCC V24, CMS/HCC V28) Inject 0.5 mL (2.5 mg total) under the skin every 7 (seven) days. 2 mL 09/24/2024 Active Active Problems Problem Noted Date Diagnosed Date Asthma 11/14/2017 Depression 11/14/2017 Elevated urine levels of vanillylmandelic acid ( VMA) 11/14/2017 Herpes simplex type 1 infection 11/14/2017 Migraine 11/14/2017 PSVT (paroxysmal supraventri cular tachycardia) ([facility] V24) 11/14/2017 Overview (05/15/2024): 09/2017 intra/post op complication, Dr Mondragon Vitamin D deficiency 11/14/2017 Class 3 severe obesity due t o excess calories with serious comorbidity and body mass index (BMI) of 50.0 to 59.9 in adult ([facility] V24, [facility] V28) 11/14/2017 Immunizations Immunization Administration Dates Next Due Hepatitis B (Rvqlrlf-V-Mlqgj , Recombivax HB-Adult) 19yo and older 03/24/2009,10/23/2008,09/24/2008,1991,11/19/1991,10/22/1991 MMR, measles mumps and rubel la Live [...] & Right 05/2014 OTHER SURGICAL HISTORY PROCEDURE: ME EGD BAND LIGATION ESOPHGEAL/GASTRIC VARICES Medical History Medical History Date Comments PSVT (paroxysmal supraventri cular tachycardia) ([facility] V24) 11/14/2017 DX:PSVT (paroxysmal suprave ntricular tachycardia) ([facility]); COMMENT: 09/2017 intra/post op complication, Dr [...] obesity with BMI of 4 0.0-44.9, adult (CMS/HCC V24, CMS/HCC V28) 11/14/2017 DX:Morbid obesity wit h BMI of 40.0-44.9, adult (HCC) Family History Medical History Relation Name Comments Other: Pulmonary Emboli Mother Copy And Print Associate kemar DVT's Relation Name Status Comments Mother Social History Tobacco Use Types Packs/Day Years Used Date Smoking Tobacco: Former Cigarettes 0 11/09/1987 - 08/10/1989 Smokeless Tobacco: Never Alcohol Use Standard Drinks/Week Comments Yes 1 (1 standard drink = 0.6 oz pur e alcohol) Comments Unknown Sex and Gender Information Value Date Recorded Sex Assigned at Female 12/21/2024 8:26 AM EDT Legal Sex Female 9:06 PM EST Gender Identity Female 12/21/2024 8:26 AM EDT Sexual Orientation Straight 12/21/2024 8: 26 AM EDT Obstetrics History Last Filed Vital Signs Vital [...] 09/24/2024 3:21 PM EST Plan of Treatment Health Maintenance Due Date Last Done Comments Pneumococcal Vaccine: 50+ Years (1 of 2 - PCV) 1989 Cervical Cancer Screening: Pap Smear 1991 Breast Cancer Screening 09/15/2021 09/15/2019 Cholesterol Screening (Lipid Panel) 07/26/2022 Colorectal Cancer Screening: Colonoscopy 07/26/2022 HIV Screening 07/26/2022 Hepatitis C Screening 07/26/2022 Social Influencers of Health Screening 07/26/2022 Zoster Vaccines (2 of 2) 06/24/2024 04/29/2024 Depression Screening 08/13/2024 Influenza Vaccine (#1) 2025 , 05/25/2023, 06/26/2022, Additional history exists DTaP,Tdap,and Td Vaccines (5 - Td or Tdap) 08/22/2029 08/22/2019, 12/23/2008, 10/23/2008, Additional history exists RSV Immunization Adult Patients (1 - 1-dose 75+ series) 2045 MMR Vaccines Completed 12/02/1990, 05/01/1978 Hepatitis B Vaccines Completed 03/24/2009, 10/23/2008, 09/24/2008, Additional history exists COVID-19 Vaccine Completed 04/29/2024, [...] age to complete this topic Meningococcal B Vaccine Aged Out No l onger eligible based on patient's age to complete this topic RSV Immunization Patients Under 20 months Aged Out No longer eligible based on patient's age to complete this topic Varicella Vaccines Aged Out No longer eligible based on patient's age to complete this topic Procedures Procedure Name Priority Date/Time Associated Diagnosis Comments [facility] SCREENING DIGITAL Routine 09/15/2019 2:33 PM EST Encounter for screening mammogram for malignant neoplasm of breast from Last 3 Months or Most Recently Relevant to Health Maintenance Results * [facility] SCREENING DIGITAL (09/15/2019 2:33 PM EST) Anatomical Region Laterality Modality Mammography 09/15/2019 9:00 AM EST Narrative 09/15/2019 2:33 PM EST [facility] Diagnostic Imaging Department [address] [place] [address] Patient: LEILA LUNDBERG Vandana JoeB./Age/Sex: 1970 - 49 - F Unit#: [id number] Location/Status: [facility]/REG CLI Mnemonic/Ordering Site: [facility] Ordering Physician: NENA LYNN MD [facility] Screening Digital - 09/15/19 - 922 History: Bilateral breast cancer screening. Technique: Bilateral digital mammography. Conventional CC and MLO projections with tomosynthesis MLO views and computer aided detection. Findings: Comparison: 05/07/2017 and multiple preceding studies dating back to 11/29/2012. Breast tissue is mostly fatty replaced (category a density) bilaterally (as calculated by Onformonics Volpara software). There are benign calcifications bilaterally. There is no suspicious group of microcalcification, no suspicious mass, architectural distortion or suspicious asymmetry. Impression: No evidence of malignancy. BIRADS category 2, benign findings, 3342F 03072, 78979 Note: Patient information entered into a reminder system with a target due date for the next mammogram; PQRI II 7027D Dictating Physician: JON DUFFY MD Electronically Signed by: JON DUFFY MD Dic Date/Time: 09/15/19 1432 Sign date/Time: 09/15/19 1433 Procedure Note Jon Duffy - 08/02/2022 [facility] Diagnostic Imaging Department [address] [place] [address] Patient: LEILA LUNDBERG Vandana /Age/Sex: 1970 - 49 - F Unit#: [id number] Location/Status: [facility]/REG CLI Mnemonic/Ordering Site: [facility] Ordering Physician: NENA LYNN MD [facility] Screening Digital - 09/15/19922 History: Bilateral breast cancer screening. Technique: Bilateral digital mammography. Conventional CC and MLOprojections with tomosynthesis MLO views and computer aided detection. Findings: Comparison: 05/07/2017 and multiple preceding studies dating back to11/29/2012. Breast tissue is mostly fatty replaced (category a density) bilaterally(as calculated by Onformon[employer] Volpara software). There are benigncalcifications bilaterally. There is no suspicious group of microcalcification, nosuspicious mass, architectural distortion or suspicious asymmetry. Impression: No evidence of malignancy. BIRADS category 2, benign findings, 3342F 10538, [address]296 Note: Patient information entered into a reminder system with a targetdue date for the next mammogram; PQRI II 7025F Dictating Physician: JON DUFFY MD Electronically Signed by: JON DUFFY MD Dic Date/Time: 09/15/19 1432 Sign date/Time: 09/15/19 1433 Nena Lynn MD IMG BI PROCEDURES Final Result from Last 3 Months or Most Recently Relevant to Health Maintenance Insurance [employer] [facility] Care Teams Grants And Contracts Assistant Relationship Specialty Start Date End Date Nena Lynn MD [address] [place] [address] PCP - General Internal Medicine 08/14/17
== END 2025-05-13 13:53 | disposition home or self-care (01) ==
LOC: HO.HOS 13:26
PROVIDERS: PCP Family Medicine; Visit Provider Orthopaedic Surgery
DX: M65.312 Trigger thumb, left thumb (principal); G56.02 Carpal tunnel syndrome, left upper limb
CPT/HCPCS: 99214

== ENCOUNTER 2025-07-15 08:10 | Outpatient (AMB) | payer OTHER, SELFPAY ==
--- NOTE | 2025-07-15 08:10 | MHC.OFFVIS ---
Intake Visit Reasons: 6 mnts f/u Intake Note: Patient presents follow up ANURAG. Compliance in chart(days, >=4hrs-46%, Average Usage-2hr 47min, Med Pressure-9.5, Med Leaks-3.1, AHI-1.8) [facility]ies [facility] Allergy (Intermediate, Verified 07/15/25 08:10) Swelling Latex, Natural Rubber Allergy (Intermediate, Verified 07/15/25 08:10) Difficulty Breathing,itching kiwi Allergy (Unknown, Verified 07/15/25 08:10) Itching metoprolol Adverse Reaction (Verified 07/15/25 08:10) Unknown HPI Comments Details: 55 year old female presents for a follow up visit for obstructive sleep apnea on cpap therapy. ANURAG Compliance report 03/2025 - 06/2025 is reviewed with pt. Total avg use / days and > 4 hours is 46%, avg daily use is 2 hours and 47min Press are 9.5cmH20 and Leask are 3.1/min AHI is 1.8/hr She washes her mask, tubing, changes her filters and fills reservoir with water as needed. She has difficulty staying asleep since childhood, now she has 1-2 awakenings for the bathroom. She states she is more alert, awake and feels well rested as she now is able to sleep for 5-6 hours. She notices she is clearer mentally, and her brain fog has significantly decreased. The pressures and temperatures are good for her, she likes the cooler temperatures and the nasal pillows however when she gets congested she is unable to use the nasal pillows and would like to try the freedom full face mask as she is a side sleeper. She says the machine stops working intermittently, she takes it apart and then puts it back together to trouble shoot it. Sometimes it works and other times, it does not. Her mood is stable, she gets overwhelmed with the holidays. She saw weight management at [facility] and could not afford to pay out of pocket for Zepbound, since her insurance would not approve it. She continues to walk as tolerable due to bone spurs, and swelling in feet has improved, she is being followed by her manager assisted living. She denies migraines, photophobia, phonophobia, vertigo, dizziness, acid reflux and RLS symptoms. 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 Sexual orientation: Straight/Heterosexual Gender identity: Female Telehealth Telehealth Telehealth Platform: [employer] Location of provider rendering services: practice address Location of patient: address on file Patient Identification confirmed using: Name, : Yes Telehealth method: video Patient verbally consented to treatment: Yes Patient verbally consented to billing insurance company: Yes Patient informed of any privacy concerns related to visit: Yes Minutes spent on Phone/Video with Pt.: 25 Results Reviewed Results Reviewed: ANURAG Compliance report 03/2025 - 06/2025 is reviewed with pt. Total avg use 47/90 days and > 4 hours is 46%, avg daily use is 2 hours and 47min Press are 9.5cmH20 and Leask are 3.1/min AHI is 1.8/hr She washes her mask, tubing, changes her filters and fills reservoir with water as needed. Labs reviewed from 10/2024 Vit D is low / normal, b12 normal. A1c 6.4. Assessment & Plan Assessment & Plan (1) ANURAG (obstructive sleep apnea): Code(s): G47.33 - Obstructive sleep apnea (adult) (pediatric) Category: Medical (2) Nasal sinus congestion: Code(s): R09.81 - Nasal congestion Category: Medical (3) Abnormal blood sugar: Code(s): R73.09 - Other abnormal glucose Category: Medical (4) Snoring: Comment: Home Sleep Study equipment pick 10/15/2024 Code(s): R06.83 - Snoring Category: Medical (5) Difficulty sleeping: Code(s): G47.9 - Sleep disorder, unspecified Category: Medical (6) Anxiety and depression: Code(s): F41.9 - Anxiety disorder, unspecified; F32.A - Depression, unspecified Category: Medical (7) Low vitamin D level: Code(s): R79.89 - Other specified abnormal findings of blood chemistry Category: Medical Plan ANURAG continue using cpap and discussed compliance of >4 hours nightly to optimize health outcomes, reduce risks of cardiovasculare disease, dementia and oxidative stress. provided email for regional home care and 1800 phone number for trouble shooting of cpap machine. Will write a rx for a full face freedom airfit mask. Nasal Congestion /Rhinorrhea Azelastine nasal spray one spray into nare as needed for congestion. Reviewed labs w/ pt. today she is borderline diabetic. A1c is 6.4. may continue with diet and lifestyle changes. GLP 1 Zepbound may be a good option for her due to elevated BMI of 57.6. Vit D is low/ normal, B12 is normal. Start Vit D 1000units daily. Anxiety continue Zoloft 25mg PO daily at bedtime for 12 weeks, per pcp. Follow up in 3 months. Medications: New azelastine administer into each nostril 1 spray intranasal BID 30 mL 1RF nasal congestion 1 month R09.81 - Nasal congestion cholecalciferol (vitamin D3) 25 mcg PO DAILY 90 caps 0RF low vitamin d 3 months R79.89 - Other specified abnormal findings of blood chemistry Changed From melatonin 3 mg PO ONCE G47.33 - Obstructive sleep apnea (adult) (pediatric) To melatonin 3 mg PO ONCE 30 caps 0RF insomnia 1 month MDD 3mg G47.33 - Obstructive sleep apnea (adult) (pediatric) Patient Instructions: Up To Date: Azelastine antihistamine spray: ?0.15%, one to two actuations per nostril twice daily and decreasing the dose as symptoms improve. Many patients' symptoms are controlled with once-daily dosing. Azelastine is also available in a 0.1% preparation, as well as a generic preparation that is dosed two actuations each nostril twice daily in adults and one actuation twice daily in children. Nasal?Saline?irrigation?? Daily nasal lavage or nasal saline sprays can also be useful. These interventions are particularly helpful for symptoms of postnasal drainage. They can be used immediately prior to INCS or?azelastinehttps://www.[employer]/contents/wqqmagpadv-wntj-zyhvwbgnwrr?search=azelastine%20nasal%20spray&xavrkWds=5205&source=see_link?so that the mucosa is freshly cleansed when the medications are applied Coding Level of Care Code Tele Est Pt Level 4 (91738) Diagnoses ANURAG (obstructive sleep apnea) G47.33 Nasal sinus congestion R09.81 Abnormal blood sugar R73.09 Snoring R06.83 Difficulty sleeping G47.9 Anxiety and depression F41.9; F32.A Low vitamin D level R79.89
--- OUTSIDE RECORDS SUMMARY | 2025-07-15 08:13 | XMS_ITS | Clinical Summary ---
Author Organization [facility] Address [address] [place] [address] Phone Care Team Providers Care Checker And Packer Name Role Phone Nena Lynn MD Primary [...] Migraine 11/14/2017 PSVT (paroxysmal supraventri cular tachycardia) ([facility] V24) 11/14/2017 Overview (05/15/2024): 09/2017 intra/post op complication, Dr Mondragon Vitamin D deficiency 11/14/2017 Class 3 severe obesity due t o excess calories with serious comorbidity and body mass index (BMI) of 50.0 to 59.9 in adult ([facility] V24, [facility] V28) 11/14/2017 Immunizations Immunization Administration Dates Next Due Hepatitis B (Njdhwzx-K-Vynpq , Recombivax HB-Adult) 19yo and older 03/24/2009,10/23/2008,09/24/2008,1991,11/19/1991,10/22/1991 [...] & Right 05/2014 OTHER SURGICAL HISTORY PROCEDURE: [place] EGD BAND LIGATION ESOPHGEAL/GASTRIC VARICES Medical History Medical History Date Comments PSVT (paroxysmal supraventri cular tachycardia) ([facility] V24) 11/14/2017 DX:PSVT (paroxysmal suprave ntricular tachycardia) ([facility]); COMMENT: 09/2017 intra/post op complication, Dr Mondragon [...] obesity wit h BMI of 40.0-44.9, adult ([facility]) Family History Medical History Relation Name Comments Other: Pulmonary Emboli Mother Short Story Writer kemar DVT's Relation Name Status Comments Mother [...] EST Narrative 09/15/2019 2:33 PM EST [facility] Diagnostic Imaging Department [address] [place] [address] Patient: LEILA LUNDBERG Vandana Figueroa./Age/Sex: 1970 - 49 - F Unit#: [id number] [facility] CLI Mnemonic/Ordering Site: [facility] Ordering Physician: NENA LYNN MD Justus Screening Digital - 09/15/19922 History: Bilateral breast cancer screening. Technique: Bilateral digital mammography. Conventional CC and MLO projections with tomosynthesis MLO views and computer aided detection. Findings: Comparison: 05/07/2017 and multiple preceding studies dating back to 11/29/2012. Breast tissue is mostly fatty replaced (category a density) bilaterally (as calculated by [employer] Volpara software). There are benign calcifications bilaterally. There is no suspicious group of microcalcification, no suspicious mass, architectural distortion or suspicious asymmetry. Impression: No evidence of malignancy. BIRADS category 2, benign findings, 3342F 23418, 52371 Note: Patient information entered into a reminder system with a target due date for the next mammogram; PQRI II 7023J Dictating Physician: JON DUFFY MD Electronically Signed by: JON DUFFY MD Dic Date/Time: 09/15/19 1432 Sign date/Time: 09/15/19 1433 Procedure Note Jon Duffy - 08/02/2022 [facility] Diagnostic Imaging Department [address] [place] [address] Patient: LEILA LUNDBERG Vandana /Age/Sex: 1970 - 49 - F Unit#: [id number] Location/Status: SPDIMAM/REG CLI Mnemonic/Ordering Site: [facility] Ordering Physician: NENA LYNN MD Justus Screening Digital - 09/15/19922 History: Bilateral breast cancer screening. Technique: Bilateral digital mammography. Conventional CC and MLOprojections with tomosynthesis MLO views and computer aided detection. Findings: Comparison: 05/07/2017 and multiple preceding studies dating back to11/29/2012. Breast tissue is mostly fatty replaced (category a density) bilaterally(as calculated by [employer] Volpara software). There are benigncalcifications bilaterally. There is no suspicious group of microcalcification, nosuspicious mass, architectural distortion or suspicious asymmetry. Impression: No evidence of malignancy. BIRADS category 2, benign findings, 3342F 13997, 60850 Note: Patient information entered into a reminder system with a targetdue date for the next mammogram; PQRI II 7088F Dictating Physician: JON DUFFY MD Electronically Signed by: JON DUFFY MD Dic Date/Time: 09/15/19 1432 Sign date/Time: 09/15/19 143 Nena Lynn MD IMG BI PROCEDURES Final Result from Last 3 Months or Most Recently Relevant to Health Maintenance Insurance [employer] [facility] Care Teams Checker And Packer Relationship Specialty Start Date End Date Nena Lynn MD [address] [place] [address] PCP - General Internal Medicine 08/14/17
--- OUTSIDE RECORDS SUMMARY | 2025-07-15 08:13 | XMS_ITS | Clinical Summary ---
Author Organization [facility] Address [address] [place] [address] Phone Care Team Providers Care Magnetic Observer Name Role Phone Nena Cervantes MD Primary [...] Vo MD - 02/20/2024 11:33 AM EDT [facility] Patient Name: Leila Lundberg Attending MD:: KIMO VO MD, , Procedure Date: 02/20/2024 11:33 AM Date of : 1970 Age: 53 Admit Type: Outpatient Gender: Female Room: [facility] 02 Referring MD: Nena Cervantes MD [...] monitored continuously. The Olympus adult variable colonoscope [id number] #2 was introduced through the anus and advanced to the cecum, identified by appendiceal orifice andileocecal valve. The colonoscopy was performed without difficulty. The patient tolerated the procedurewell. The quality of the bowel preparation was excellent. The quality of the bowel preparation was evaluated using the BBPS (Orchard Bowel Preparation Scale)with scores of: Right Colon [...] 11:33 AM Procedure Code(s): --- Professional --- 23042, Colonoscopy, flexible; diagnostic, including collection of specimen(s) by brushing or washing, when performed (separateprocedure) --- Technical --- 75045, Colonoscopy, flexible; diagnostic, including collection of specimen(s) by brushing or washing, when performed (separateprocedure) Diagnosis Code(s): --- Professional --- Z12.11, Encounter for screening for malignantneoplasm of colon K64.8, Other hemorrhoids --- Technical --- Z12.11, Encounter for screening for malignantneoplasm of colon K64.8, Other hemorrhoids CPT copyright 2021 [employer]. All rights reserved. The codes documented in this report are preliminary and upon accounts administrator reviewmay be revised to meet current compliance requirements. Procedure Date: 02/20/2024 11:33:[address] [place] [address] Nena Cervantes MD GI PROCEDURE ORDERABLES Final Result * Pap Test (09/14/2022 12:00 AM EST) 09/14/2022 09/15/2022 8:3 0 AM EST Narrative SEE NARRATIVE - 09/21/2022 12:33 PM EST [address] [address] Csw: Lisa Park MD WIRE ANNEALER Cytology Report FINAL DIAGNOSIS A. PAP SMEAR [...] 59, 66, 68) Note: Testing performed by [employer] Onclarity HR-HPV analysis. Clinical correlation is advised. This HPV test was performed at [facility], [address] [place] [address]. This test has been FDA approved for SurePath cervical cytology specimens. The accuracy and precision of this test for all other specimen sources has been verified in the Cytopathology Laboratory of the [facility] and has not been cleared or approved by the U.S. Food and Drug Administration. Clinical correlation is advised. CLINICAL HISTORY Date of Last Menstrual Period: Not Provided Menstrual History: Post Menopausal Other Clinical Conditions: Screening Pap SPECIMEN SOURCE A: PAP SMEAR (SUREPATH) CE Patient Name: LEILA LUNDBERG : 1970 (Age: 52) Sex: F [facility] Location: [facility] Date of Collection: 09/14/2022 Date of Reported: 09/21/2022 12:33 Results to: Nena Cervantes MD Nena Cervantes MD CYTOLOGY ORDERABLES Moni valentin Result SEE NARRATIVE from Last 3 Months or Most Recently Relevant to Health Maintenance Insurance [employer] Member Subscriber Plan / Payer (Ef fective 2020-Present) Name:Leila Lundberg Relation to Subscriber:Self Name:Leila Lundberg Payer ID:[id number] ([facility]) Type:PPO Address: [place] [phone] [employer]AT[employer] Member Subscriber Plan / Payer (Ef fective 2020-Present) Name:Leila Lundberg Relation to Subscriber:Self Name:Leila Lundberg Payer ID:[id number] ([facility]) Type:PPO Address: [place] [phone] [employer] Care Teams Magnetic Observer Relationship Specialty Start Date End Date Nena Cervantes MD [email or web address] PCP - General Family Medicine 09/18/22 Additional Source Comments The information contained in this document represents components of the legal health record. It is not the complete legal health record.[facility]
--- OUTSIDE RECORDS SUMMARY | 2025-07-15 08:13 | XMS_ITS | Encounter Summary ---
Author Organization [facility] Address [address] [place] [address] Care Team Providers Care Hog Sticker Name Role Phone Nena Cervantes MD Primary Care Provider Unav ailable Encounter Details Date Type Department Care Team Description 08/22/2017 Orders Only Medical Records [address] [place] [address] Herbert Reece MD [address] [place] [address] Social History Tobacco Use Types Packs/Day Years [...] on filedocumented in this encounter Care Teams Hog Sticker Relationship Specialty Start Date End Date Nena Cervantes MD PCP - General Internal Medicine 08/14/17 documented as of this encounter
--- OUTSIDE RECORDS SUMMARY | 2025-07-15 08:13 | XMS_ITS | Encounter Summary ---
Author Organization [facility] Address [address] [place] [address] Care Team Providers Care Sub Acute Care Nurse Name Role Phone Nena Cervantes MD Primary Care Provider Unav ailable Reason for Visit * Reason Onset Date Comments refill request 12/10/2017 Encounter Details Date Type Department Care Team Description 12/10/2017 Telephone Pulmonology - [place] [address] [facility] [address] [place] [phone] Juan Aquino MD [address] [place] [address] refill request Social History Tobacco Use Types Packs/Day Years Used Date Smoking Tobacco: Former Cigarettes 0 11/09/1987 - 08/10/1989 Smokeless Tobacco: Never Alcohol Use Standard Drinks/Week Comments Yes 1 (1 standard drink = 0.6 oz pur e alcohol) Sex Assigned at Date Recorded Not on file Job Start Date Occupation Industry Not on file Not on file Not on file documented as of this encounter Miscellaneous Notes * Telephone Encounter - Rosemary Brooke M.A. - 12/10/2017 2:32 PM EDT Medication is pendind on your box * Telephone Encounter - Elodia Mustafa - 12/10/2017 1:13 PM EDT Patient would like script to be: {RX WHEN WAS THE PATIENT'S LAST APPOINTMENT WITH THE PRESCRIBING PROVIDER? 11/07/17 Does patient have an upcoming appointment? Yes (THE MEDICATION REQUESTED IS ON THE MED LIST ABOVE) All of the medications requested were on the CURRENT MEDS list Did you check the Pharmacy information above?: YES Patient wants: 30 -day supply Is this a mail order prescription request ? NO Patients current insurance carrier is: Payor: [employer] / Plan: EPO $20 [place] [employer] / Product Type: EPO documented in this encounter Plan of Treatment Not on file documented as of this encounter Visit Diagnoses Diagnosis Moderate asthma, unspecified whether complicated, unspecified whether persistent- Primary documented in this encounter Care Teams Sub Acute Care Nurse Relationship Specialty Start Date End Date Nena Cervantes MD PCP - General Internal Medicine 08/14/17 documented as of this encounter
--- OUTSIDE RECORDS SUMMARY | 2025-07-15 08:13 | XMS_ITS | Encounter Summary ---
Author Organization [facility] Address [address] [place] [address] Care Team Providers Care Cancer Registrar Name Role Phone Nena Cervantes MD Primary Care Provider Unav ailable Encounter Details Date Type Department Care Team Description 01/18/2018 Telephone Adult Medicine [address] [address] Dwight Benitez MD Social History Tobacco Use [...] on filedocumented in this encounter Care Teams Cancer Registrar Relationship Specialty Start Date End Date Nena Cervantes MD PCP - General Internal Medicine 08/14/17 documented as of this encounter
--- OUTSIDE RECORDS SUMMARY | 2025-07-15 08:13 | XMS_ITS | Encounter Summary ---
Author Organization [facility] Address [address] [facility] [address] [place] [address] Phone Care Team Providers Care Educational Resource Coordinator Name Role Phone Nena Cervantes MD Primary Care Provider + Encounter Details Date Type Department Care Team (Late st Contact Info) Description 12/07/2022 Procedure Pass [facility] Endoscopy Admitting Dept Virtual Department [address] [place], [place] [phone] Social History Tobacco Use Types Packs/Day Years [...] on filedocumented in this encounter Care Teams Educational Resource Coordinator Relationship Specialty Start Date End Date Nena Cervantes MD [email or web address] PCP - General Family Medicine 09/18/22 documented as of this encounter Additional Source Comments The information contained in this document represents components of the legal health record. It is not the complete legal health record.[facility]
--- OUTSIDE RECORDS SUMMARY | 2025-07-15 08:13 | XMS_ITS | Encounter Summary ---
Author Organization [facility] Address [address] [place] [address] Care Team Providers Care Director Of Construction Name Role Phone Nena Cervantes MD Primary Care Provider Unav ailable Encounter Details Date Type Department Care Team Description 04/21/2024 Pt. Non Urgent Medical Question Bariatric Surgery - [place] 175 [facility] [address] [place] [address] Serene Zapata PA-C [address] [facility] [address] [place] [address] Social History Tobacco Use Types [...] on filedocumented in this encounter Care Teams Director Of Construction Relationship Specialty Start Date End Date Nena Cervantes MD PCP - General Internal Medicine 08/14/17 documented as of this encounter
--- OUTSIDE RECORDS SUMMARY | 2025-07-15 08:13 | XMS_ITS | Encounter Summary ---
Author Organization [facility] Address [address] [facility] [address] [place] [address] Phone Care Team Providers Care Press Reader Name Role Phone Nena Cervantes MD Primary Care Provider + Encounter Details Date Type Department Care Team (Late st Contact Info) Description 02/20/2024 Procedure Pass [facility] Endoscopy Admitting Dept Virtual Department [address] [place], [place] [phone] Social History Tobacco Use Types Packs/Day Years [...] on filedocumented in this encounter Care Teams Press Reader Relationship Specialty Start Date End Date Nena Cervantes MD PCP - General Family Medicine 09/18/22 documented as of this encounter Additional Source Comments The information contained in this document represents components of the legal health record. It is not the complete legal health record.[facility]
== END 2025-07-17 08:14 | disposition home or self-care (01) ==
LOC: HO.HSMC 08:10
PROVIDERS: PCP Family Medicine; Visit Provider Physician Assistant Medical
DX: G47.33 Obstructive sleep apnea (adult) (pediatric) (principal); R09.81 Nasal congestion; R73.09 Other abnormal glucose; R06.83 Snoring; G47.9 Sleep disorder, unspecified; F41.9 Anxiety disorder, unspecified; F32.A Depression, unspecified; R79.89 Other specified abnormal findings of blood chemistry
CPT/HCPCS: 99214

== ENCOUNTER 2025-07-16 06:15 | Day surgery (SDC) | payer OTHER, SELFPAY ==
--- OUTSIDE RECORDS SUMMARY | 2024-09-09 03:00 | XMS_ITS ---
Author Organization [facility] Address [address] [address] Care Team Providers Care Radio Recorder Name Role Phone Nena Cervantes Primary Care Provider UnavailCHANDRA Garcia Unavailable [phone] Allergies Allergen (clinical drug ingredient) Drug/Non Drug [...] Active Encounters Encounter Location Date Provider Diagnosis [facility] [address] [address] 09/09/2024 CHANDRA SANDERSON Plan Of Treatment No Information Progress Notes * Leila LUNDBERGDOB:1970 ( 55 yo F)Acc No.[id number]:09/09/2024 Patient: Leila DAVIS Provider: Moshe Morales DPMattie :1970 A ge:54 Y S ex:Female Date:09/09/2024 Phone: Address:[address] [place] [phone] Pcp:Nena Cervantes Subjective: * Chief Complaints: * [...] * Electronic signature of Evita MONTIELPJohannMJohann on 07/03/2025 at 03:21 PM EST Sign off status: Pending * Provider: Moshe Morales DPM Date: 0 09/09/2024 Generated for Mariluz polanco/Asha/Julio César on: 09/02/2024 03:21 PM EST
--- OUTSIDE RECORDS SUMMARY | 2024-11-26 03:30 | XMS_ITS ---
Author Organization [facility] Address [address] [place] [address] Care Team Providers Care Horse Doctor Name Role Phone Billy DENG, Nena Primary Care Provider Unavail able Lisa Dorman Unavailable [phone] Encounters Encounter Location Date Provider Diagnosis [facility] [address] [place] [address] 11/26/2024 Lisa Dorman Plan Of Treatment No Information Progress Notes * Leila LUNDBERGDOB:1970 ( 55 yo F)Acc No.[id number]:11/26/2024 Progress Notes Patient: Leila DAVIS Provider: Raisa Dorman DPM :1970 A ge:54 Y S ex:Female Date:11/26/2024 Address:[address] [place], [place] [id number] Pcp:Nena Cervantes MD Subjective: * Chief Complaints: * * Medical History: Objective: * Vitals: Assessment: Plan: * Treatment: * Images: * The named appointment provid er may or may not be the originator of this progress note, and it is not deemed complete until electronically signed by the appointment provider. Sign off status: Pending * Provider: Raisa Dorman DPM Date: 0 11/26/2024 Generated for Mariluz polanco/Asha/Julio César on: 09/02/2024 03:21 PM EST
--- OUTSIDE RECORDS SUMMARY | 2025-07-03 15:21 | XMS_ITS | Patient Health Record ---
Author Organization [facility] Address [address] [address] Care Team Providers Care Extrusion Supervisor Name Role Phone Haris Cervantesanne Primary Care Provider CHANDRA Tuttle Unavailable [phone] Allergies Allergen (clinical drug ingredient) Drug/Non Drug [...] Active Encounters Encounter Location Date Provider Diagnosis [facility] [address] [address] 08/29/2024 CHANDRA SANDERSON Plan Of Treatment No Information Medical (General) History Medical History History ICD Code asthma clear cell renal cell carcinoma supraventricular tachycardia hyperglycemia migraine obesity vitamin D deficiency Surgical History Surgery Date(Month/Year) cholecystectomy gastric band carpal tunnel release partial nephrectomy
--- OUTSIDE RECORDS SUMMARY | 2025-07-03 15:21 | XMS_ITS | Patient Health Record ---
Author Organization [facility] Address [address] [place] [address] Care Team Providers Care Client Manager Name Role Phone Nena Cervantes MD Primary Care Provider Unavail able Lisa Dorman Unavailable [phone] Reason For Referral No Information Encounters [facility] [address] [facility] [address] [place] [address] 11/20/2024 Lisa Dorman Plan Of Treatment No Information Insurance Providers Payer Name Payer Address Payer Phone Subscriber Number Group Number Insured Name Patient Relationship to Insured Coverage Start Date Coverage End Date Blue Benefits [address] [address] [place] [address] [id number] Leila Lundberg Self - patient is the insured
--- OUTSIDE RECORDS SUMMARY | 2025-07-03 15:21 | XMS_ITS | Encounter Summary ---
Author Organization [facility] Address [address] [facility] [address] [place] [address] Phone Care Team Providers Care Bakery Helper Name Role Phone Nena Cervantes MD Primary Care Provider + Encounter Details Date Type Department Care Team (Late st Contact Info) Description 12/07/2022 Procedure Pass [facility] Endoscopy Admitting Dept Virtual Department [address], [place] [id number] Social History Tobacco Use Types Packs/Day Years [...] on filedocumented in this encounter Care Teams Bakery Helper Relationship Specialty Start Date End Date Nena Cervantes MD [email or web address] PCP - General Family Medicine 09/18/22 documented as of this encounter Additional Source Comments The information contained in this document represents components of the legal health record. It is not the complete legal health record.[facility]
--- OUTSIDE RECORDS SUMMARY | 2025-07-03 15:21 | XMS_ITS | Clinical Summary ---
Author Organization [facility] Address [address] [facility] [address] [place] [address] Phone Care Team Providers Care Under Cutting Machine Operator Name Role Phone Nena Cervantes MD [...] years) (1 of 1 - PCV) 2020 RSV VACCINE (1 - Risk 50-74 years 1-dose series) 2020 ZOSTER VACCINES (1 of 2) 2020 INFLUENZA VACCINE (#1) 2025 , 06/26/2022, 06/02/2021, Additional history exists COVID-19 VACCINE (2024- season) 2025 06/26/2022, 12/01/2021, 06/02/2021, Additional history [...] (02/20/2024 11:33 AM EDT) Narrative Transcriptions Kimo Vo MD - 02/20/2024 11:33 AM EDT [facility] Patient Name: Leila Lundberg Attending MD:: KIMO VO MD, , Procedure Date: 02/20/2024 11:33 AM Date of : 1970 Age: 53 Admit Type: Outpatient Gender: Female Room: [facility] 02 Referring MD: Nena Cervantes MD Exam [...] monitored continuously. The Olympus adult variable colonoscope [id number] #2 was introduced through the anus and advanced to the cecum, identified by appendiceal orifice andileocecal valve. The colonoscopy was performed without difficulty. The patient tolerated the procedurewell. The quality of the bowel preparation was excellent. The quality of the bowel preparation was evaluated using the BBPS ([place] Bowel Preparation Scale)with scores of: Right Colon [...] 11:33 AM Procedure Code(s): --- Professional --- 02325, Colonoscopy, flexible; diagnostic, including collection of specimen(s) by brushing or washing, when performed (separateprocedure) --- Technical --- 93870, Colonoscopy, flexible; diagnostic, including collection of specimen(s) by brushing or washing, when performed (separateprocedure) Diagnosis Code(s): --- Professional --- Z12.11, Encounter for screening for malignantneoplasm of colon K64.8, Other hemorrhoids --- Technical --- Z12.11, Encounter for screening for malignantneoplasm of colon K64.8, Other hemorrhoids CPT copyright 2021 [employer]. All rights reserved. The codes documented in this report are preliminary and upon lead printer reviewmay be revised to meet current compliance requirements. Procedure Date: 02/20/2024 11:33:[address] [place] [address] Nena Cervantes MD GI PROCEDURE ORDERABLES Final Result * Pap Test (09/14/2022 12:00 AM EST) 09/14/2022 09/15/2022 8:3 0 AM EST Narrative SEE NARRATIVE - 09/21/2022 12:33 PM EST [address] [address] Fourchette Sewer: Lisa Park MD CLAY WASHER Cytology Report FINAL DIAGNOSIS A. PAP SMEAR [...] 59, 66, 68) Note: Testing performed by [employer] Onclarity HR-HPV analysis. Clinical correlation is advised. This HPV test was performed at [facility], [address] [place] [address]. This test has been FDA approved for SurePath cervical cytology specimens. The accuracy and precision of this test for all other specimen sources has been verified in the Cytopathology Laboratory of the [facility] and has not been cleared or approved by the U.S. Food and Drug Administration. Clinical correlation is advised. CLINICAL HISTORY Date of Last Menstrual Period: Not Provided Menstrual History: Post Menopausal Other Clinical Conditions: Screening Pap SPECIMEN SOURCE A: PAP SMEAR (SUREPATH) CE Patient Name: ELILA LUNDBERG : 1970 (Age: 52) Sex: F Institution: [facility] Location: [facility] Date of Collection: 09/14/2022 Date of Reported: 09/21/2022 12:33 Results to: Nena Cervantes MD Nena Cervantes MD CYTOLOGY ORDERABLES Moni valentin Result SEE NARRATIVE from Last 3 Months or Most Recently Relevant to Health Maintenance Insurance [employer] Member Subscriber Plan / Payer (Ef fective 2020-Present) Name:Leila Lundberg Relation to Subscriber:Self Name:Leila Lundberg Payer ID:[id number] ([facility]) Type:PPO Address: [place] [phone] [employer]EF[employer] ADMINISTRAT[employer] Member Subscriber Plan / Payer (Ef fective 2020-Present) Name:Leila Lundberg Relation to Subscriber:Self Name:Leila Lundberg Payer ID:[id number] ([facility]) Type:PPO Address: [place] [phone] [employer]EF[employer] ADMINISTRAT[employer] Care Teams Under Cutting Machine Operator Relationship Specialty Start Date End Date Nena Cervantes MD [email or web address] PCP - General Family Medicine 09/18/22 Additional Source Comments The information contained in this document represents components of the legal health record. It is not the complete legal health record.[facility]
--- OUTSIDE RECORDS SUMMARY | 2025-07-03 15:21 | XMS_ITS | Clinical Summary ---
Author Organization [facility] Address [address] [place] [address] Phone Care Team Providers Care Factory Supervisor Name Role Phone Nena Lynn MD Primary [...] Migraine 11/14/2017 PSVT (paroxysmal supraventri cular tachycardia) ([facility] V24) 11/14/2017 Overview (05/15/2024): 09/2017 intra/post op complication, Dr Mondragon Vitamin D deficiency 11/14/2017 Class 3 severe obesity due t o excess calories with serious comorbidity and body mass index (BMI) of 50.0 to 59.9 in adult ([facility] V24, [facility] V28) 11/14/2017 Immunizations Immunization Administration Dates Next Due Hepatitis B (Gbuasoa-Q-Ydrif , Recombivax HB-Adult) 19yo and older 03/24/2009,10/23/2008,09/24/2008,1991,11/19/1991,10/22/1991 [...] & Right 05/2014 OTHER SURGICAL HISTORY PROCEDURE: [place] EGD BAND LIGATION ESOPHGEAL/GASTRIC VARICES Medical History Medical History Date Comments PSVT (paroxysmal supraventri cular tachycardia) ([facility] V24) 11/14/2017 DX:PSVT (paroxysmal suprave ntricular tachycardia) ([facility]); COMMENT: 09/2017 intra/post op complication, Dr [...] obesity wit h BMI of 40.0-44.9, adult ([facility]) Family History Medical History Relation Name Comments Other: Pulmonary Emboli Mother Precision Farming Specialist kemar DVT's Relation Name Status Comments Mother Social History Tobacco Use Types Packs/Day Years Used Date Smoking Tobacco: Former Cigarettes 1.8 0 11/09/1987 - 08/10/1989 Smokeless Tobacco: Never [...] Health Maintenance Due Date Last Done Comments Colorectal Cancer Screening: Colonoscopy 1970 Pneumococcal Vaccine: 50+ Years (1 of 2 - PCV) 1989 Cervical Cancer Screening: Pap Smear 1991 RSV Immunization Adult Patients (1 - Risk 50-74 years 1-dose series) 2020 Breast Cancer Screening 09/15/2021 09/15/2019 Cholesterol Screening (Lipid Panel) 07/26/2022 HIV Screening 07/26/2022 Hepatitis C Screening 07/26/2022 Social Influencers of Health Screening 07/26/2022 Zoster Vaccines (2 of 2) 06/24/2024 04/29/2024 Depression Screening 08/13/2024 COVID-19 Vaccine ( season) 2025 04/29/2024, 06/26/2022, 12/01/2021, Additional history exists Influenza Vaccine (#1) 2025 , 05/25/2023, 06/26/2022, [...] Procedure Name Priority Date/Time Associated Diagnosis Comments JUSTUS SCREENING DIGITAL Routine 09/15/2019 2:33 PM EST Encounter for screening mammogram for malignant neoplasm of breast from Last 3 Months or Most Recently Relevant to Health Maintenance Results * JUSTUS SCREENING DIGITAL (09/15/2019 2:33 PM EST) Anatomical Region Laterality Modality Mammography 09/15/2019 9:00 AM EST Narrative 09/15/2019 2:33 PM EST [facility] Diagnostic Imaging Department [address] [place] [address] Patient: LEILA LUNDBERG Vandana Figueroa./Age/Sex: 1970 - 49 - F Unit#: [id number] Location/Status: [facility] CLI Mnemonic/Ordering Site: [facility] Ordering Physician: NENA LYNN MD Justus Screening Digital - 09/15/19922 History: Bilateral breast cancer screening. Technique: Bilateral digital mammography. Conventional CC and MLO projections with tomosynthesis MLO views and computer aided detection. Findings: Comparison: 05/07/2017 and multiple preceding studies dating back to 11/29/2012. Breast tissue is mostly fatty replaced (category a density) bilaterally (as calculated by [employer] Volpara software). There are benign calcifications bilaterally. There is no suspicious group of microcalcification, no suspicious mass, architectural distortion or suspicious asymmetry. Impression: No evidence of malignancy. BIRADS category 2, benign findings, 3342F 38731, 07497 Note: Patient information entered into a reminder system with a target due date for the next mammogram; PQRI II 7035C Dictating Physician: JON DUFFY MD Electronically Signed by: JON DUFFY MD Dic Date/Time: 09/15/19 1432 Sign date/Time: 09/15/19 1433 Procedure Note Jon Duffy - 08/02/2022 [facility] Diagnostic Imaging Department [address] [place] [address] Patient: LEILA LUNDBERG Vandana /Age/Sex: 1970 - 49 - F Unit#: [id number] Location/Status: SPDIMAM/REG CLI Mnemonic/Ordering Site: [facility] Ordering Physician: NENA LYNN MD Justus Screening Digital - 09/15/19922 History: Bilateral breast cancer screening. Technique: Bilateral digital mammography. Conventional CC and MLOprojections with tomosynthesis MLO views and computer aided detection. Findings: Comparison: 05/07/2017 and multiple preceding studies dating back to11/29/2012. Breast tissue is mostly fatty replaced (category a density) bilaterally(as calculated by [employer] Volpara software). There are benigncalcifications bilaterally. There is no suspicious group of microcalcification, nosuspicious mass, architectural distortion or suspicious asymmetry. Impression: No evidence of malignancy. BIRADS category 2, benign findings, 3342F 49153, [id number] Note: Patient information entered into a reminder system with a targetdue date for the next mammogram; PQRI II 7098F Dictating Physician: JON DUFFY MD Electronically Signed by: JON DUFFY MD Dic Date/Time: 09/15/19 1432 Sign date/Time: 09/15/19 143 Nena Lynn MD IMG BI PROCEDURES Final Result from Last 3 Months or Most Recently Relevant to Health Maintenance Insurance [employer] [facility] Care Teams Factory Supervisor Relationship Specialty Start Date End Date Nena Lynn MD [address] [place] [address] PCP - General Internal Medicine 08/14/17
--- OUTSIDE RECORDS SUMMARY | 2025-07-03 15:22 | XMS_ITS | Encounter Summary ---
Author Organization [facility] Address [address] [facility] [address] [place] [address] Phone Care Team Providers Care Tank Builder Helper Name Role Phone Nena Cervantes MD Primary Care Provider + Encounter Details Date Type Department Care Team (Late st Contact Info) Description 02/20/2024 Procedure Pass [facility] Endoscopy Admitting Dept Virtual Department [address] [place], [place] [id number] Social History Tobacco Use Types Packs/Day Years [...] on filedocumented in this encounter Care Teams Tank Builder Helper Relationship Specialty Start Date End Date Nena Cervantes MD [email or web address] PCP - General Family Medicine 09/18/22 documented as of this encounter Additional Source Comments The information contained in this document represents components of the legal health record. It is not the complete legal health record.[facility]
[2025-07-16 06:25] VITALS: BP 151/81; PULSE 87; RESP 16; TEMP 36.8; O2SAT 95; BMI 57.0
--- NOTE | 2025-07-16 07:34 | P.OP_ITS ---
Operative Note Operative Note Date of Service: 07/16/25 Narrative: Preop diagnosis: 1. Left recurrent Carpal tunnel syndrome 2. Left trigger thumb Postop diagnosis: same Procedure: 1. Left repeat Carpal tunnel release 2. Left trigger thumb release Surgeon: Jennifer Louis MD Microstrategy Architect: Yandel RIVERA Anesthesia: local block using 1% lidocaine with epinephrine Findings: Thickened transverse carpal ligament. EBL: Less than 5 mL Specimens: None Complications: None Disposition: Brought to recovery room in stable condition Plan: Follow-up for 10-14 days for wound check and suture removal Indications: The patient is 55 years old, with a left trigger thumb and recurrent carpal tunnel syndrome that has been unresponsive to nonoperative management. The risks and benefits of operative treatment including but not limited to risk of damage to blood vessels, nerves, tendons, infection, persistent pain, persistent symptoms, or possible need for additional surgery were discussed with the patient and the patient wishes to proceed with surgery. Procedure: Once consent was obtained a local block was performed using a combination of 1% lidocaine with epinephrine. The patient was then brought back to the operating suite and placed on the operative table in supine position. The left upper extremity was prepped and draped in a standard surgical fashion. Once assured that we had a good block, a 1.5 cm oblique incision was made centered over the A1 bc of the left thumb . The incision was made through the skin to the subcutaneous tissues using a #15 blade. Careful dissection was made down to the level of the A1 bc using tenotomy scissors, with care being taken to protect the nearby neurovascular structures. A longitudinal incision was made in the A1 bc 1st using a #15 blade, then using tenotomy scissors under direct visualization. The A1 bc was noted to be thickened. Following our A1 bc release, we no longer saw any locking or catching of the digit with flexion and extension. Once assured that we had a good block, a 2.0 cm longitudinal incision was made centered over the carpal tunnel and extended proximally in a zigzag fashion.. The incision was made through the skin to the subcutaneous tissues using a #15 blade. We began proximally dissected down to the level of the volar forearm fascia. I made a longitudinal incision in the volar forearm fascia exposing the median nerve. I then protected the median nerve was I proceeded distally incising through the scar tissue over the carpal tunnel using both a 15. Blade and tenotomy scissors under direct visualization. Once satisfied with our carpal tunnel release the wounds were copiously irrigated with normal saline and hemostasis was obtained with a brief period of local pressure. The skin edges were reapproximated with some 5.0 nylon suture material and a sterile dressing was applied. The patient appears to have tolerated the procedure well and with no complications. All digits were well vascularized at the conclusion of the case.
--- NOTE | 2025-07-16 07:34 | MHC.SHP ---
Pre-Procedural Eval Section A - 24 Hr Update-Section A only Date of Service: 07/16/25 The patient is an INPATIENT: No Changes since office visit: No Cold of Flu in the past 2 weeks, No New Medical Problems, No Changes in Medication and No Patient answered all questions The patient has been examined within 24 hours of the surgical procedure. The History & Physical has been completed within 30 days and I have reviewed it.: Yes Section B - Complete if H&P > 30 days Chief Complaint: carpal tunnel release,trigger finger Allergies: Allergies Allergy/AdvReac Type Severity Reaction Status Date / Time amlodipine (From [facility]) Allergy Intermediate Swelling Verified 07/15/25 08:10 Latex, Natural Rubber Allergy Intermediate Difficulty Verified 07/15/25 08:10 Breathing,itching kiwi Allergy Unknown Itching Verified 07/15/25 08:10 metoprolol AdvReac Unknown Verified 07/16/25 06:21 Plan Diagnosis/Plan: Unchanged I have reviewed the history and physical and performed a pertinent physical examination on my patient. No changes have occurred unless specified. Time Spent With Patient Time: Total time managing care of this patient today ____ minutes.
[2025-07-16 08:46] VITALS: BP 132/65; PULSE 73; RESP 18; O2SAT 96
== END 2025-07-16 08:50 | disposition home or self-care (01) ==
PROVIDERS: PCP Family Medicine; Visit Provider Orthopaedic Surgery
PROC: (CPT 64721; principal; 2025-07-16 07:30)
PROC: (CPT 26055; 2025-07-16 07:30)
DX: G56.02 Carpal tunnel syndrome, left upper limb (principal); M65.312 Trigger thumb, left thumb; R20.0 Anesthesia of skin; R20.2 Paresthesia of skin; Z85.528 Personal history of other malignant neoplasm of kidney; Z90.5 Acquired absence of kidney; J45.909 Unspecified asthma, uncomplicated; G43.909 Migraine, unspecified, not intractable, without status migrainosus; I47.10 Supraventricular tachycardia, unspecified; E66.01 Morbid (severe) obesity due to excess calories; Z68.43 Body mass index [BMI] 50.0-59.9, adult; Z88.8 Allergy status to other drugs, medicaments and biological substances; Z91.040 Latex allergy status; Z90.49 Acquired absence of other specified parts of digestive tract; Z87.891 Personal history of nicotine dependence
CPT/HCPCS: 64721; 26055; J0165; J2003; J2004

== ENCOUNTER → 2025-07-16 06:15 | Outpatient (BNV) | payer OTHER, SELFPAY | PROVIDERS: PCP Family Medicine; Visit Provider Orthopaedic Surgery | DX: G56.02 Carpal tunnel syndrome, left upper limb (principal); M65.312 Trigger thumb, left thumb | CPT/HCPCS: 26055; 64721 ==

== ENCOUNTER 2025-07-28 12:52 | Outpatient (AMB) | payer OTHER, SELFPAY ==
--- OUTSIDE RECORDS SUMMARY | 2024-09-09 03:00 | XMS_ITS ---
Author Organization [facility] Address [address] [address] Care Team Providers Care Cras Name Role Phone Nena Cervantes Primary Care Provider UnavailCHANDRA Garcia Unavailable [phone] Allergies Allergen (clinical drug ingredient) Drug/Non Drug Allergy documented on EMR Reaction Allergy Type Onset Date Status Latex Latex Unknown Allergy Active metoprolol Metoprolol Unknown Drug Allergy Activ e Kiwi Unknown Allergy Active REASON FOR VISIT Lt heel pain/swelling Medications Medication SIG (Take, Route, Frequency, Duration) Notes Start Date End Date Status Cyclobenzaprine HCl 10 MG 1 tablet at be dtime as needed Orally Once a day Active Flovent HFA 110 mcg/inh Active Nortriptyline HCl 10 MG 1 capsule at bed time Orally Once a day Active ProAir HFA 90 mcg/inh Active Encounters Encounter Location Date Provider Diagnosis [facility] [address] [address] 09/09/2024 CHANDRA SANDERSON Plan Of Treatment No Information Progress Notes * Leila LUNDBERGDOB:1970 ( 55 yo F)Acc No.[id number]:09/09/2024 Patient: Leila DAVIS Provider: Moshe Morales DPMattie :1970 A ge:54 Y S ex:Female Date:09/09/2024 Phone: Address:[address] [place] [phone] Pcp:Nena Cervantes Subjective: * Chief Complaints: * 1 . Lt heel pain/swelling. * Medical History: A sthma, Clear cell renal cell carcinoma, Supraventricular tachycardia, Hyperglycemia, Migraine, Obesity, vitamin D deficiency. * Surgical History: c holecystectomy , gastric band , carpal tunnel release , partial nephrectomy . * Family History: pulmonary embolism. * Social History: t obacco: never alcohol: never. * Medications: T aking ProAir HFA , Notes to Pharmacist: 90 mcg/inh, Taking Nortriptyline HCl 10 MG Capsule 1 capsule at bedtime Orally Once a day , Taking Flovent HFA , Notes to Pharmacist: 110 mcg/inh, Taking Cyclobenzaprine HCl 10 MG Tablet 1 tablet at bedtime as needed Orally Once a day * Allergies: K iwi: Allergy, Latex: Allergy, Metoprolol: Allergy. Objective: * Vitals: Assessment: Plan: * Treatment: * Billing Information: * Visit Code: * Procedure Codes: * Electronic signature of Evita MONTIELPJohannMJohann on 07/28/2025 at 04:45 PM EST Sign off status: Pending * Provider: Moshe Morales DPM Date: 0 09/09/2024 Generated for Mariluz polanco/Asha/Julio César on: 1 09/28/2024 04:45 PM EST
--- OUTSIDE RECORDS SUMMARY | 2024-11-26 03:30 | XMS_ITS ---
Author Organization [facility] Address [address] [place] [address] Care Team Providers Care Merchandise Pickup/Receiving Associate Name Role Phone Billy DENG, Nena Primary Care Provider Unavail able Lisa Dorman Unavailable [phone] Encounters Encounter Location Date Provider Diagnosis [facility] [address] [place] [address] 11/26/2024 Lisa Dorman Plan Of Treatment No Information Progress Notes * Leila LUNDBERGDOB:1970 ( 55 yo F)Acc No.[id number]:11/26/2024 Progress Notes Patient: Leila DAVIS Provider: Raisa Dorman DPM :1970 A ge:54 Y S ex:Female Date:11/26/2024 Address:[address] [place], [place] [address] Pcp:Nena Cervantes MD Subjective: * Chief Complaints: [...] 11/26/2024 Generated for Mariluz polanco/Asha/Julio César on: 09/28/2024 04:44 PM EST
[2025-07-28 13:00] VITALS: BMI 57.0
--- NOTE | 2025-07-28 13:00 | A.OFFVIS_ITS ---
Vital Signs 07/28/25 13:00 Height 5 ft 4 in Weight 332 lb BMI 57.0 Intake Visit Reasons: PO LT repeat CTR/trigger 07/16/25 AR Intake Note: Leila is a 55 year old right hand dominant female who presents today post- operatively Repeat Left Carpal Tunnel Release & Left Trigger Thumb Release, DOS: 07/16/[address] Louis. Patient reports she continues having left index and left middle DIP numbness. Due to stiffness, she is unsure if her thumb conitnues to trigger. She is taking Ibuprofen with relief of pain. Sutures removed and steri strips applied. Allergies amlodipine (From [facility]) Allergy (Intermediate, Verified 07/28/25 13:00) Swelling Latex, Natural Rubber Allergy (Intermediate, Verified 07/28/25 13:00) Difficulty Breathing,itching kiwi Allergy (Unknown, Verified 07/28/25 13:00) Itching metoprolol Adverse Reaction (Verified 07/28/25 13:00) Unknown HPI HPI PO LT repeat CTR/trigger 07/16/25 AR: Details: Leila is a 55 year old right hand dominant female who presents today post- operatively Repeat Left Carpal Tunnel Release & Left Trigger Thumb Release, DOS: 07/16/[address] Louis. Patient reports she continues having left index and left middle DIP numbness, however she was experiencing dense numbness prior to surgery. Due to stiffness, she is unsure if her thumb continues to trigger, however she has not appreciated any locking since surgery.. She is taking Ibuprofen with relief of pain. Sutures removed and steri strips applied. [facility] Medical History (Updated 07/15/25 @ 09:37 by Trever Joseph PA-C) Cancer of kidney Migraines Asthma Morbid obesity SVT (supraventricular tachycardia) Surgical History (Updated 07/16/25 @ 06:24 by Virginia Mascorro RN) History of carpal tunnel surgery of right wrist History of carpal tunnel surgery of left wrist History of nephrectomy History of cholecystectomy Family History Mother DVT (deep vein thrombosis) in Social History Household Members: None Housing: Apartment Alcohol intake: current Alcohol intake frequency: holidays/special occasions only Alcohol type: wine and hard liquor Patient Tobacco Use Status: Former Tobacco user Current occupational status: employed 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 Neuro: Diminished sensation in the left index and middle fingers Normal sensation of the tips of all other digits of the left hand at this time Vascular: Cap refill brisk Pain: No tenderness to palpation about the incision sites over volar left wrist and A1 bc of left thumb ROM: With encouragement, patient is able to make a closed fist and extend all digits of the left hand fully Patient is able to touch the base of the small finger with the left thumb with encouragement Skin: Well approximated and well healing incision sites noted over volar left wrist and A1 bc of the left thumb No lacerations or abrasions. General: No ecchymosis, erythema, or evidence of infection. Psych: Appears grossly normal Affect normal Attitude cooperative Assessment & Plan Assessment & Plan (1) Trigger thumb, left thumb: Code(s): M65.312 - Trigger thumb, left thumb Category: Medical (2) Carpal tunnel syndrome on left: Code(s): G56.02 - Carpal tunnel syndrome, left upper limb Category: Medical Plan 1. Status post left trigger thumb release 2. Status post left carpal tunnel release DOS 07/16/2025 With symptomatic resolution from trigger thumb, still experiencing numbness in median nerve distribution of the left hand, densely numb prior to surgery Patient appears to be recovering well postoperatively Patient is educated about the typical recovery course No under water times one-week, 2 lb weight limit x2 weeks Patient appears to be recovering very well, and requires no further acute follow-up with us postoperatively Patient is educated and worrisome signs and symptoms, and should call us if they experience any of these, including but not limited to redness, swelling, increased pain, and discharge OT order is placed for slight stiffness in the left hand, however I do not feel the patient requires acute follow-up with us, as this stiffness is fairly mild and we will likely resolve well with OT Patient understands this and is amenable to this plan Orders: Orders OT Evaluation and Treatment Today G56.02 - Carpal tunnel syndrome, left upper limb, M65.312 - Trigger thumb, left thumb Coding Level of Care Code Global (19273) Diagnoses Trigger thumb, left thumb M65.312 Carpal tunnel syndrome on left G56.02
--- OUTSIDE RECORDS SUMMARY | 2025-07-28 16:45 | XMS_ITS | Patient Health Record ---
Author Organization [facility] Address [address] [place] [address] Care Team Providers Care Perennial House Manager Name Role Phone Nena Cervantes MD Primary Care Provider Unavail able Lisa Dorman Unavailable [phone] Reason For Referral No Information Encounters [facility] [address] [facility]/09/[facility]24 Lisa Dorman [facility] [address] [place] [address] 11/20/2024 Lisa Dorman Plan Of Treatment No Information Insurance Providers Payer Name Payer Address Payer Phone Subscriber Number Group Number Insured Name Patient Relationship to Insured Coverage Start Date Coverage End Date Blue Benefits [address] [address] [place] [address] [id number] Leila Lundberg Self - patient is the insured
--- OUTSIDE RECORDS SUMMARY | 2025-07-28 16:45 | XMS_ITS | Encounter Summary ---
Author Organization [facility] Address [address] [facility] [address] [place] [address] Phone Care Team Providers Care Hot Dog Vendor Name Role Phone Nena Cervantes MD Primary Care Provider + Encounter Details Date Type Department Care Team (Late st Contact Info) Description 02/20/2024 Procedure Pass [facility] Endoscopy Admitting Dept Virtual Department [address] [place], [place] [phone] Social History Tobacco Use Types Packs/Day Years [...] on filedocumented in this encounter Care Teams Hot Dog Vendor Relationship Specialty Start Date End Date Nena Cervantes MD [email or web address] PCP - General Family Medicine 09/18/22 documented as of this encounter Additional Source Comments The information contained in this document represents components of the legal health record. It is not the complete legal health record.[facility]
--- OUTSIDE RECORDS SUMMARY | 2025-07-28 16:45 | XMS_ITS | Patient Health Record ---
Author Organization [facility] Address [address] [address] Care Team Providers Care Obstetrician And Gynaecologist Name Role Phone Haris Cervantesanne Primary Care Provider CHANDRA Tuttle Unavailable [phone] Allergies Allergen (clinical drug ingredient) Drug/Non Drug [...] Active Encounters Encounter Location Date Provider Diagnosis [facility] [address] [address] 08/29/2024 CHANDRA SANDERSON Plan Of Treatment No Information Medical (General) History Medical History History ICD Code asthma clear cell renal cell carcinoma supraventricular tachycardia hyperglycemia migraine obesity vitamin D deficiency Surgical History Surgery Date(Month/Year) cholecystectomy gastric band carpal tunnel release partial nephrectomy
--- OUTSIDE RECORDS SUMMARY | 2025-07-28 16:45 | XMS_ITS | Encounter Summary ---
Author Organization [facility] Address [address] [facility] [address] [place] [address] Phone Care Team Providers Care Meat Wrapper Name Role Phone Nena Cervantes MD Primary Care Provider + Encounter Details Date Type Department Care Team (Late st Contact Info) Description 12/07/2022 Procedure Pass [facility] Endoscopy Admitting Dept Virtual Department [address] [place], [place] [phone] Social History Tobacco Use Types Packs/Day Years [...] on filedocumented in this encounter Care Teams Meat Wrapper Relationship Specialty Start Date End Date Nena Cervantes MD [email or web address] PCP - General Family Medicine 09/18/22 documented as of this encounter Additional Source Comments The information contained in this document represents components of the legal health record. It is not the complete legal health record.[facility]
--- OUTSIDE RECORDS SUMMARY | 2025-07-28 16:45 | XMS_ITS | Clinical Summary ---
Author Organization [facility] Address [address] [facility] [address] [place] [address] Phone Care Team Providers Care Automobile Designer Name Role Phone Nena Cervantes MD Primary [...] Vo MD - 02/20/2024 11:33 AM EDT [facility] Patient Name: Leila Lundberg Attending MD:: KIMO VO MD, , Procedure Date: 02/20/2024 11:33 AM Date of : 1970 Age: 53 Admit Type: Outpatient Gender: Female Room: [facility] 02 Referring MD: Nena Cervantes MD Exam [...] monitored continuously. The Olympus adult variable colonoscope CF-UI034P #2 was introduced through the anus and advanced to the cecum, identified by appendiceal orifice andileocecal valve. The colonoscopy was performed without difficulty. The patient tolerated the procedurewell. The quality of the bowel preparation was excellent. The quality of the bowel preparation was evaluated using the BBPS ([place] Bowel Preparation Scale)with scores of: Right Colon [...] 11:33 AM Procedure Code(s): --- Professional --- 31481, Colonoscopy, flexible; diagnostic, including collection of specimen(s) by brushing or washing, when performed (separateprocedure) --- Technical --- 88909, Colonoscopy, flexible; diagnostic, including collection of specimen(s) by brushing or washing, when performed (separateprocedure) Diagnosis Code(s): --- Professional --- Z12.11, Encounter for screening for malignantneoplasm of colon K64.8, Other hemorrhoids --- Technical --- Z12.11, Encounter for screening for malignantneoplasm of colon K64.8, Other hemorrhoids CPT copyright 2021 [employer]. All rights reserved. The codes documented in this report are preliminary and upon laborer golf course reviewmay be revised to meet current compliance requirements. Procedure Date: 02/20/2024 11:33:[address] [place] [address] Nena Cervantes MD GI PROCEDURE ORDERABLES Final Result * Pap Test (09/14/2022 12:00 AM EST) 09/14/2022 09/15/2022 8:3 0 AM EST Narrative SEE NARRATIVE - 09/21/2022 12:33 PM EST [address] [address] Patrol Sergeant Sheriff'S Office: Lisa Park MD WIND FIELD SERVICE MANAGER Cytology Report FINAL DIAGNOSIS A. PAP SMEAR [...] 59, 66, 68) Note: Testing performed by [facility] Onclarity HR-HPV analysis. Clinical correlation is advised. This HPV test was performed at [facility], [address] [place] [address]. This test has been FDA approved for [facility] cervical cytology specimens. The accuracy and precision of this test for all other specimen sources has been verified in the Cytopathology Laboratory of the [facility] and has not been cleared or approved by the U.S. Food and Drug Administration. Clinical correlation is advised. CLINICAL HISTORY Date of Last Menstrual Period: Not Provided Menstrual History: Post Menopausal Other Clinical Conditions: Screening Pap SPECIMEN SOURCE A: PAP SMEAR (SUREPATH) CE Patient Name: LEILA LUNDBERG : 1970 (Age: 52) Sex: F Institution: [facility] Location: [facility] Date of Collection: 09/14/2022 Date of Reported: 09/21/2022 12:33 Results to: Nena Cervantes MD Nena Cervantes MD CYTOLOGY ORDERABLES Moni valentin Result SEE NARRATIVE from Last 3 Months or Most Recently Relevant to Health Maintenance Insurance [employer]MIN[employer] Member Subscriber Plan / Payer (Ef fective 2020-Present) Name:Leila Lundberg Relation to Subscriber:Self Name:Leila Lundberg Payer ID:[id number] ([employer]) Type:PPO Address: [place] [phone] [employer] ADMINIST[employer]ATORS [employer] Member Subscriber Plan / Payer (Ef fective 2020-Present) Name:Leila Lundberg Relation to Subscriber:Self Name:Leila Lundberg Payer ID:[id number] ([employer]) Type:PPO Address: [place] [phone] [employer] AD[employer]IST[employer]AT[employer] Care Teams Automobile Designer Relationship Specialty Start Date End Date Nena Cervantes MD [email or web address] PCP - General Family Medicine 09/18/22 Additional Source Comments The information contained in this document represents components of the legal health record. It is not the complete legal health record.[facility]
--- OUTSIDE RECORDS SUMMARY | 2025-07-28 16:45 | XMS_ITS | Clinical Summary ---
Author Organization [facility] Address [address] [place] [address] Phone Care Team Providers Care Ordnance Artificer Name Role Phone Nena Lynn MD Primary [...] 50.0 to 59.9 in adult 11/14/2017 Immunizations Immunization Administration Dates Next Due Hepatitis B (Bauiyoa-T-Yzijw , Recombivax HB-Adult) 19yo and older 03/24/2009,10/23/2008,09/24/2008,1991,11/19/1991,10/22/1991 [...] & Right 05/2014 OTHER SURGICAL HISTORY PROCEDURE: LA EGD BAND LIGATION ESOPHGEAL/GASTRIC VARICES Medical History Medical History Date Comments PSVT (paroxysmal supraventri cular tachycardia) (CMS/HCC V24) 11/14/2017 DX:PSVT (paroxysmal suprave ntricular tachycardia) (HCC); COMMENT: 09/2017 intra/post op complication, [...] obesity wit h BMI of 40.0-44.9, adult ([facility]) Family History Medical History Relation Name Comments Other: Pulmonary Emboli Mother Therapy Director kemar DVT's Relation Name Status Comments Mother [...] Orientation Straight 12/21/2024 8: 26 AM EDT Last Filed Vital Signs Vital Sign Reading [...] Procedure Name Priority Date/Time Associated Diagnosis Comments [facility] SCREENING DIGITAL Routine 09/15/2019 2:33 PM EST Encounter for screening mammogram for malignant neoplasm of breast from Last 3 Months or Most Recently Relevant to Health Maintenance Results * [facility] SCREENING DIGITAL (09/15/2019 2:33 PM EST) Anatomical Region Laterality Modality Mammography 09/15/2019 9:00 AM EST Narrative 09/15/2019 2:[address] [facility] Diagnostic Imaging Department [address] [place] [id number] Patient: LEILA LUNDBERG Vandana /Age/Sex: 1970 - 49 - F Unit#: [id number] Location/Status: SPDIMAM/REG CLI Mnemonic/Ordering Site: [facility] Ordering Physician: NENA LYNN MD [facility] Screening Digital - 09/15/19922 History: Bilateral breast cancer screening. Technique: Bilateral digital mammography. Conventional CC and MLO projections with tomosynthesis MLO views and computer aided detection. Findings: Comparison: 05/07/2017 and multiple preceding studies dating back to 11/29/2012. Breast tissue is mostly fatty replaced (category a density) bilaterally (as calculated by [employer] software). There are benign calcifications bilaterally. There is no suspicious group of microcalcification, no suspicious mass, architectural distortion or suspicious asymmetry. Impression: No evidence of malignancy. BIRADS category 2, benign findings, 3342F 94600, [id number] Note: Patient information entered into a reminder system with a target due date for the next mammogram; PQRI II [id number] Dictating Physician: JON DUFFY MD Electronically Signed by: JON DUFFY MD Dic Date/Time: 09/15/19 1432 Sign date/Time: 09/15/19 1433 Procedure Note Jon Duffy - 08/02/2022 [facility] Diagnostic Imaging Department [address] [place] [address] Patient: LEILA LUNDBERG Vandana /Age/Sex: 1970 - 49 - F Unit#: [id number] Location/Status: SPDIMAM/REG CLI Mnemonic/Ordering Site: [facility] Ordering Physician: NENA LYNN MD [facility] Screening Digital - 09/15/19922 History: Bilateral breast cancer screening. Technique: Bilateral digital mammography. Conventional CC and MLOprojections with tomosynthesis MLO views and computer aided detection. Findings: Comparison: 05/07/2017 and multiple preceding studies dating back to11/29/2012. Breast tissue is mostly fatty replaced (category a density) bilaterally(as calculated by [employer] software). There are benigncalcifications bilaterally. There is no suspicious group of microcalcification, nosuspicious mass, architectural distortion or suspicious asymmetry. Impression: No evidence of malignancy. BIRADS category 2, benign findings, 3342F [id number], [id number] Note: Patient information entered into a reminder system with a targetdue date for the next mammogram; RI II [id number] Dictating Physician: JON DUFFY MD Electronically Signed by: JON DUFFY MD Dic Date/Time: 09/15/19 1432 Sign date/Time: 09/15/19 1433 Nena Lynn MD IMG BI PROCEDURES Final Result from Last 3 Months or Most Recently Relevant to Health Maintenance Insurance [employer] [facility] Care Teams Ordnance Artificer Relationship Specialty Start Date End Date Nena Lynn MD [address] [place] [id number] PCP - General Internal Medicine 08/14/17
== END 2025-07-28 13:27 | disposition home or self-care (01) ==
LOC: HO.HOS 12:53
PROVIDERS: PCP Family Medicine
DX: M65.312 Trigger thumb, left thumb (principal); G56.02 Carpal tunnel syndrome, left upper limb
CPT/HCPCS: 99024